=== PATIENT | female | born 1945 | race Caucasian/White ===

== ENCOUNTER 2019-10-30 15:44 | Emergency (ER) | payer MEDICARE, BC, SELFPAY ==
[2019-10-30] VITALS (7 sets, daily range): BP systolic 148–184; BP diastolic 58–87; PULSE 67–74; RESP 16–18; TEMP 36.7; O2SAT 96–98; BMI 30.1
--- NOTE | 2019-10-30 16:07 | ED_ITS ---
HPI - General Adult General: Chief complaint: General Medical Stated complaint: jaundice Time Seen by Provider: 10/30/19 15:58 Source: patient Mode of arrival: ambulatory Limitations: no limitations History of Present Illness: HPI narrative: 74-year-old female who states she went and saw her daughter who noted that she was quite jaundiced. Patient had labs drawn and does have a bilirubin of 12. Liver enzymes are in the 300s. She has had no abdominal pain denies any fever. She did not notice anything was wrong until someone noticed her jaundice. She is quite jaundiced here. She denies any fever or any other complaints. She has had no vomiting or diarrhea. No known sick contacts. Associated symptoms: Deny chest pain, dyspnea, headache(s), nausea or vomiting Review of Systems Const: Denies: fever, chills, body aches or change in appetite Eyes: Denies: blurry vision or eye discomfort ENMT: Denies: throat pain or dental pain Card: Denies: chest pain Resp: Denies: shortness of breath GI: Denies: abdominal pain, nausea, vomiting or diarrhea : Denies: painful urination Musc: Denies: neck pain or back pain Skin/Breast: Reports: yellow skin Neuro: Denies: headache Psych: Denies: depression Александр/Lymph: Denies: easy bruising All/Imm: Denies: hives PFS ED PFSH: Social History (System 10/10/19 @ 14:36 by Magi Hartley) Smoking and tobacco status: never smoked Physical Exam Const: COMMON NORMALS: no apparent distress, oriented x3 and healthy appearing HENMT: COMMON NORMALS: normocephalic and head/scalp atraumatic HEAD & SCALP: normocephalic and atraumatic Eye: COMMON NORMALS: PERRL and EOMs intact bilaterally PUPIL: Yes PERRL Neck/C-Spine: COMMON NORMALS: full ROM and supple Chest: COMMONS NORMALS: inspection of chest normal and palpation of chest normal Resp: COMMON NORMALS: normal respiratory effort, no retractions, no use of accessory muscles and clear to auscultation bilaterally AUSCULTATION: clear to auscultation bilaterally Cardio: COMMON NORMALS: regular rate, regular rhythm and no murmurs RATE: regular rate RHYTHM: regular rhythm GI: COMMON NORMALS: normal to inspection, nondistended, normoactive bowel sounds, soft to palpation, non-tender and no masses PALPATION: Yes soft Extremity: COMMON NORMALS: normal to inspection and full ROM Neuro: COMMON NORMALS: oriented x3, moves all extremities and no focal motor deficits Psych: COMMON NORMALS: mental status grossly normal, thought process normal and cooperative THOUGHT PROCESS: normal thought process Skin: COMMON NORMALS: no rashes or lesions noted and no wounds GENERAL SKIN EXAM: no rashes or lesions noted and jaundice Course Vital Signs: Vital signs: Vital Signs Temperature 98.0 F 10/30/19 16:02 Pulse Rate 72 10/30/19 17:16 Respiratory Rate 16 10/30/19 17:16 Blood Pressure 169/78 10/30/19 17:16 Pulse Oximetry 98 10/30/19 17:16 MDM - General Adult MDM Narrative: Medical decision making narrative: 74-year-old female presented here with jaundice and does have hyperbilirubinemia. Patient has a large liver mass likely compressing her bile duct. I spoke to physician at [facility] and will transfer there for higher level of care. Patient will need GI specialty which we do not have here. Patient likely needs a stent to open up her bile duct. Patient has been stable while here. Lab Data: Labs: Lab Results 10/30/19 10/30/19 Range/Units 16:10 16:10 WBC 9.5 (4.0-10.0) 10^3/ uL RBC 4.40 (4.1-5.3) 10^6/u L Hgb 13.8 (11.5-15.3) g/dL Hct 41.1 (37.0-47.0) % MCV 93.4 (81-99) fL MCH 31.4 (28.0-34.0) pg MCHC 33.6 (30.0-36.0) g/dL RDW 18.8 H (12.1-15.1) % Plt Count 168 (130-400) 10^3/c mm MPV 12.2 H (7.4-10.4) fL Neut % (Auto) 68.1 % Lymph % (Auto) 19.6 % [place] % (Auto) 9.5 % Eos % (Auto) 1.7 % Baso % (Auto) 0.8 % Neut # (Auto) 6.5 (1.8-7.7) 10^3/u L Lymph # (Auto) 1.9 (0.8-4.8) 10^3/u L [place] # (Auto) 0.9 (0.2-0.9) 10^3/u L Eos # (Auto) 0.2 (0.0-0.8) 10^3/u L Baso # (Auto) 0.1 (0.0-0.1) 10^3/u L Nucleated RBC % (a uto) 0 % Nucleated RBCs # 0.0 /100WBC Sodium 132 L (136-145) mmol/L Potassium 4.5 (3.5-5.1) mmol/L Chloride 95 L (98-107) mmol/L Carbon Dioxide 26 (22-29) mmol/L Anion Gap 15.5 (5-19) BUN 19 (8-23) mg/dL Creatinine 0.6 (0.5-0.9) mg/dL Glucose 106 (65-115) mg/dL Calculated Osmolal ity 271 L (285-295) mOsm/k g Calcium 9.3 (8.5-10.5) mg/dL Total Bilirubin 12.2 H* (0.15-1.2) mg/dL AST 305 H (0-32) U/L ALT 209 H (0-33) U/L Alkaline Phosphata se 794 H (35-105) IU/L Total Protein 7.8 (6.6-8.7) g/dL Albumin 3.6 (3.5-5.2) g/dL Globulin 4.2 (1.3-4.6) g/dL Lipase 27 (13-60) U/L Imaging Data^: CT Abd/Pel: Radiologist's impression: [place] [address] CT Scan Report Signed Patient: Lexie Sylvester Unit #: [id number] : 1945 Age/Sex: 74 / F ADM Date: 10/30/19 Loc: ER Room/Bed: Attending Dr: Ordering Provider/Ordering MD: Brenda Webb MD Date of Service: 10/30/19 Procedure(s): CT abdomen pelvis w con* [id number] Accession Number(s): [id number] Report Number: [id number] PROCEDURE INFORMATION: Exam: CT Abdomen And Pelvis With Contrast Exam date and time: 10/30/2019 4:37 PM Age: 74 years old Clinical indication: Other: Jaundiced; Prior surgery; Surgery date: 6+ months; Surgery type: Hyst, appy ovaries; Additional info: Jaundice TECHNIQUE: Imaging protocol: Computed tomography of the abdomen and pelvis with intravenous contrast. Radiation optimization: All CT scans at this facility use at least one of these dose optimization techniques: automated exposure control; mA and/or kV adjustment per patient size (includes targeted exams where dose is matched to clinical indication); or iterative reconstruction. Contrast material: OMNI 300; Contrast volume: 95 ml; Contrast route: IV; COMPARISON: No relevant prior studies available. RADIATION DOSE METRICS: Total DLP: 1809.77 mGy-cm FINDINGS: Liver: 5.8 cm ill-defined inhomogenous hypodense mass in the left liver lobe. Gallbladder and bile ducts: Mild intrahepatic ductal dilatation, left greater than right. Gallbladder wall thickening measuring up to 7 mm. The extrahepatic bile ducts are normal in diameter. Pancreas: 1.1 cm oval low-density lesion in the pancreatic tail, likely cystic. Spleen: Normal. No splenomegaly. Adrenals: Normal. No mass. Kidneys and ureters: Subcentimeter hypodensity in the right kidney is too small to characterize. This is most likely a cyst. No follow-up recommended. 1 mm nonobstructing left renal calyceal calculus. Stomach and bowel: Mild diverticulosis of the distal colon. Short segment of fluid-filled small bowel in the lower abdomen measures up to 3.0 cm. The remainder of the small bowel is normal in caliber. The stomach is unremarkable. Appendix: No evidence of appendicitis. Intraperitoneal space: Unremarkable. No free air. No significant fluid collection. Vasculature: Unremarkable. No abdominal aortic aneurysm. Lymph nodes: Unremarkable. No enlarged lymph nodes. Bladder: Unremarkable as visualized. Reproductive: The uterus and ovaries are absent. Bones/joints: Mild scoliosis and degenerative changes. No compression fracture. Soft tissues: Unremarkable. CT/CT abdomen pelvis w con* [id number] IMPRESSION: 1. 5.8 cm ill-defined inhomogenous mass in the left liver lobe. This could represent hepatocellular carcinoma, cholangiocarcinoma, or metastatic disease. In a low-risk patient, recommend further evaluation with liver MRI. In a high-risk patient, recommend further evaluation with liver MRI or biopsy. If biopsy is pursued, core biopsy is preferred over fine-needle aspiration. 2. Intrahepatic ductal dilatation, left greater than right, without extrahepatic ductal dilatation. This may represent obstruction due to the left liver lobe mass, versus an occult bile duct neoplasm. 3. Thickening of the gallbladder wall is suspicious for cholecystitis. Neoplastic involvement is not excluded. 4. 1.1 cm probable cystic lesion in the pancreatic tail. This could represent a pseudocyst or cystic neoplasm such as intraductal papillary mucinous neoplasm. 5. Focal ileus or enteritis in the distal small bowel. Discharge Plan Discharge Patient Disposition: Xfer Other Clinical Impression: Liver mass, Hyperbilirubinemia Condition: Stable Referrals: Phil Cisneros MD [Primary Care Provider] - Coding Level of Care Code ED Bicycle Assembler for Chg Fwd Exam Comprehensive
[2019-10-30 16:28] LABS: Basophils # 0.1 10^3/uL (0.0-0.1); Basophils % 0.8 %; Eosinophils # 0.2 10^3/uL (0.0-0.8); Eosinophils % 1.7 %; Hematocrit 41.1 % (37.0-47.0); Hemoglobin 13.8 g/dL (11.5-15.3); Lymphocytes # 1.9 10^3/uL (0.8-4.8); Lymphocytes % 19.6 %; Mean Corpuscular HGB Conc 33.6 g/dL (30.0-36.0); Mean Corpuscular Hemoglobin 31.4 pg (28.0-34.0); Mean Corpuscular Volume 93.4 fL (81-99); Mean Platelet Volume 12.2 fL (7.4-10.4); Monocytes # 0.9 10^3/uL (0.2-0.9); Monocytes % 9.5 %; Neutrophils # 6.5 10^3/uL (1.8-7.7); Neutrophils % 68.1 %; Nucleated Red Blood Cells % 0 %; Platelet Count 168 10^3/cmm (130-400); Red Cell Distribution Width 18.8 % (12.1-15.1); White Blood Count 9.5 10^3/uL (4.0-10.0)
[2019-10-30 16:32] LABS: Alanine Aminotransferase 209 U/L (0-33); Albumin Level 3.6 g/dL (3.5-5.2); Alkaline Phosphatase 794 IU/L (35-105); Anion Gap 15.5 (5-19); Aspartate Amino Transferase 305 U/L (0-32); Blood Urea Nitrogen 19 mg/dL (8-23); Calcium 9.3 mg/dL (8.5-10.5); Carbon Dioxide 26 mmol/L (22-29); Chloride 95 mmol/L (98-107); Globulin 4.2 g/dL (1.3-4.6); Glucose 106 mg/dL (65-115); Lipase 27 U/L (13-60); Osmolality Calculated 271 mOsm/kg (285-295); Potassium 4.5 mmol/L (3.5-5.1); Sodium 132 mmol/L (136-145); Total Protein 7.8 g/dL (6.6-8.7)
[2019-10-30] MEDS: iohexol 300 mg/mL 100 mL Btl IV (17:06)
[2019-10-30 17:30] LABS: Total Bilirubin 12.2 mg/dL (0.15-1.2)
--- NOTE | 2019-10-30 19:43 | PC.NURSE ---
Pt requesting size of mass on liver. Pt and daughter (via phone) informed size of mass is 5.8cm
== END 2019-10-30 20:08 | disposition other institution (70) ==
PROVIDERS: Emergency Provider Emergency Medicine; PCP Family Medicine
DX: R16.0 Hepatomegaly, not elsewhere classified (principal); E80.6 Other disorders of bilirubin metabolism
CPT/HCPCS: 12345; 36415; 74177; 80053; 83690; 85025; 99282; 99285; Q9967

== ENCOUNTER 2020-01-17 08:00 | Outpatient (RCR) | payer MEDICARE, BC, SELFPAY ==
[2020-01-10 10:35] VITALS: BP 137/64; PULSE 54; RESP 18; TEMP 37; O2SAT 97; BMI 29.4
[2020-01-17 08:58] VITALS: BP 183/81; PULSE 59; RESP 18; TEMP 36.4; O2SAT 98
== END 2020-01-24 23:59 | disposition home or self-care (01) ==
LOC: OPS 08:00
PROVIDERS: PCP Family Medicine; Visit Provider Internal Medicine Medical Oncology
DX: D70.1 Agranulocytosis secondary to cancer chemotherapy (principal)
CPT/HCPCS: 96372; J1442

== ENCOUNTER 2020-02-21 08:28 | Outpatient (RCR) | payer MEDICARE, BC, SELFPAY ==
[2020-01-31 08:51] VITALS: BP 169/62; PULSE 48; RESP 20; TEMP 36.5; O2SAT 99
[2020-02-07 08:48] VITALS: BP 172/57; PULSE 55; RESP 18; TEMP 36.1; O2SAT 97
[2020-02-21 10:01] VITALS: BP 178/86; PULSE 58; RESP 18; TEMP 36.2; O2SAT 98
== END 2020-02-24 23:59 | disposition home or self-care (01) ==
LOC: OPS 08:28
PROVIDERS: PCP Family Medicine; Visit Provider Internal Medicine Medical Oncology
DX: C22.1 Intrahepatic bile duct carcinoma (principal)
CPT/HCPCS: 96372; J1442

== ENCOUNTER → 2020-06-24 15:13 | Outpatient (BNVA) | payer MEDICARE, BC, SELFPAY | PROVIDERS: PCP Family Medicine; Visit Provider Orthopaedic Surgery | DX: S42.101A Fracture of unspecified part of scapula, right shoulder, initial encounter for closed fracture (principal); W18.09XA Striking against other object with subsequent fall, initial encounter | CPT/HCPCS: 73030 ==

== ENCOUNTER 2020-09-25 08:36 | Outpatient (CLI) | payer MEDICARE, BC, SELFPAY ==
[2020-09-25] MEDS: sodium chloride 0.9% 500 ML 999 ML IV (10:50)
[2020-09-25 11:37] LABS: Basophils % 0.4 %; Eosinophils # 0.1 10^3/uL (0.0-0.8); Eosinophils % 1.8 %; Hematocrit 28.5 % (37.0-47.0); Hemoglobin 9.7 g/dL (11.5-15.3); Lymphocytes # 1.1 10^3/uL (0.8-4.8); Mean Platelet Volume 11.7 fL (7.4-10.4); Monocytes # 0.6 10^3/uL (0.2-0.9); Monocytes % 11.2 %; Neutrophils # 3.59 10^3/uL (1.8-7.7); Neutrophils % 65.9 %; Nucleated Red Blood Cells % 0 %; Platelet Count 58 10^3/cmm (130-400); Red Blood Count 2.85 10^6/uL (4.1-5.3); White Blood Count 5.5 10^3/uL (4.0-10.0)
[2020-09-25 12:01] LABS: Alanine Aminotransferase 40 U/L (0-33); Albumin Level 2.3 g/dL (3.5-5.2); Alkaline Phosphatase 325 IU/L (35-105); Anion Gap 13.4 (5-19); Aspartate Amino Transferase 96 U/L (0-32); Blood Urea Nitrogen 17 mg/dL (8-23); Calcium 8.2 mg/dL (8.5-10.5); Carbon Dioxide 24 mmol/L (22-29); Chloride 101 mmol/L (98-107); Globulin 3.4 g/dL (1.3-4.6); Glucose 123 mg/dL (65-115); Magnesium 1.5 mg/dL (1.7-2.3); Osmolality Calculated 281 mOsm/kg (285-295); Potassium 4.4 mmol/L (3.5-5.1); Sodium 134 mmol/L (136-145); Total Bilirubin 0.9 mg/dL (0.15-1.2); Total Protein 5.7 g/dL (6.6-8.7)
[2020-09-25 12:43] LABS: Iron 47 ug/dL (37-145); Total Iron Binding Capacity 134 mcg/dl; Unsaturated Iron Binding 87 ug/dL (112-347)
[2020-09-25 12:58] LABS: Vitamin B12 1231 pg/mL (232-1245)
--- NOTE | 2020-09-25 15:02 | ONC CON_ITS ---
Dr. Hall New Patient Note Patient: Lexie Sylvester Unit #: [id number]: 1945 Dicatated By: Gabe Hall M.D.Date of Visit: Sep 25, 2020 Onc MED New Patient/Consult Referring Physician: Jose Luis Lopez Chief Complaint: Cholangiocarcinoma. 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 She has previously been treated for endometrial cancer and for thyroid cancer. In October 2019 she had presented to the emergency room with jaundice. Her initial CT scan showed an ill-defined inhomogeneous hypodense mass in the left lobe of the liver measuring 5.8 cm. There is mild intrahepatic ductal dilatation. Her ERCP showed no definite filling defects in the bile ducts. Abdominal MRI showed infiltrative mass in the left lobe of the liver measuring 8.1 x 5.5 cm. It was noted to be contiguous with the anterior gallbladder wall. There was marked hepatomegaly with nodular hepatic contour suggesting underlying cirrhosis. There was markedly dilated left sided intrahepatic bile ducts measuring up to 1.1 cm in diameter. Needle biopsy of the liver on 11/20/2019 showed cirrhosis with marked bile ductular proliferation and neutrophilic inflammation. There was no malignancy identified. She had further evaluation at [facility] where she underwent diagnostic laparoscopy with multiple liver biopsies on 12/03/2019. She was noted to have a mass involving segment 4 of the liver in a background of liver cirrhosis. Pathology on the liver mass showed poorly differentiated adenocarcinoma. Pathology on biopsies from the right lobe of the liver showed bridging fibrosis. Overall, the findings were felt to be consistent with cholangiocarcinoma with underlying liver cirrhosis. On 12/09/2019 she had medical oncology consultation with Dr. Jose Luis Lopez, following which she began a course of treatment with cisplatin/gemcitabine. A repeat MRI on 02/17/2020, following completion of 3 cycles of chemotherapy, showed stable disease. She then sought treatment at [facility] in [place], [place]. She subsequently began second line chemotherapy with a modified FOLFOX regimen. During her further follow-up she did require some treatment delays and dose reductions due to cytopenias, but she did show some response to the FOLFOX chemotherapy. Her most recent FOLFOX cycle began on 07/07/2020. She then returned to [facility] where she underwent radiation concurrently with capecitabine for chemosensitization. She completed radiation on 08/26/2020. Total dose was 6000 cGy to the abdomen (liver) administered in 15 fractions and 6000 cGy to an upper pelvic lymph node, also administered in 15 fractions. She returned to see Dr. Lopez on 09/14/2020. At that point she was having fever, cough, and shortness of breath. Her CT pulmonary angiogram showed no evidence of pulmonary thromboembolism. There were scattered patchy infiltrates primarily involving the upper lobes with a peripheral distribution. Similar changes were noted to a lesser extent within the lung bases, right greater than left. There was no associated adenopathy. The findings appeared most compatible with underlying pneumonia. She began on empiric antibiotic coverage with Levaquin. She is seen here now so that she can receive some follow-up care locally. She complains that her energy is still very low and she does have very limited activity. She is able to walk to the bathroom with assistance. Her ECOG score is 3. Appetite is not very good. She has continued to have fever, though it has been coming down gradually on the Levaquin. Her temperature is typically normal when she first gets up in the morning, but she has fever later in the day on a daily basis. The highest recently has been 100.3 to 100.4 degrees. She had recently fallen at home. She hurt her toes, but she did not have any other injury from it. She says her cough is getting better. She still has some shortness of breath. She does not complain of chest pain. She sometimes has nausea. She has some pain in the mid abdominal area. Bowel and bladder function have been okay. She has some joint pain. During the course of her chemotherapy treatment she had also sustained a right arm fracture. It has been managed conservatively. She has had some headaches and she tends to feel lightheaded when she stands up. She is having significant neuropathy in her hands and in her legs and feet. She also has developed swelling in her lower legs and feet. Past Medical History: She has a history of thyroid cancer and a history of uterine cancer. She also has valvular heart disease. Past Surgical History: She underwent diagnostic laparoscopy at [facility] on 12/03/2019. Her other surgical/procedural history includes cataract excision, hysterectomy/bilateral salpingo-oophorectomy, lumpectomy, rotator cuff repair, tonsillectomy, bioprosthetic aortic valve replacement in 2013, and total thyroidectomy followed by iodine-131 ablation in 2010. Medications: [place] Thyroid 1 (120 mg) Tablet Oral daily, Benzonatate 1 (100 mg) Capsule Oral t.i.d., Ibuprofen 1 (200 mg) Capsule Oral PRN, levoFLOXacin 1 (750 mg) Tablet Oral daily, Omeprazole 1 (40 mg) Capsule Delayed Release Oral daily Allergies: oxyCODONE HCl and traMADol HCl. Social History: Ms. Sylvester is and she is retired. She is a non-smoker. She does not drink alcohol. Family History: Father of lung cancer at age 62. Mother at age 50. A brother has coronary artery disease. Review Of Symptoms: Constitutional - She does not feel good generall. Her energy is very poor. She is able to get up and walk short distances with assistance. She is otherwise sedentary. Her appetite is poor and her weight is down. She has been running fever on a daily basis, as high as 102.7, but since starting antibiotics it has been improving. She also is still having episodes of chills and sweating. ECOG score is 3, Eyes - No change in vision, ENMT - No hearing loss or tinnitus. No sinus congestion/drainage. No mouth sores. No sore throat or difficulty swallowing, Hematologic/Lymphatic - She bruises easily, Respiratory - She has shortness of breath with activity. She has a cough. No pleuritic pain or hemoptysis, Cardiovascular - No angina pain. No palpitations. She has developed swelling in both legs, Gastrointestinal - She has some nausea. No vomiting. Her heartburn is adequately managed with omeprazole. No diarrhea or constipation. No blood in the stool or black stools. She has some pain in her right upper quadrant area, Genitourinary (F) - No dysuria or hematuria. No urinary frequency. No urgency or incontinence, Musculoskeletal - She has some joint pain, Integumentary - No skin eruption, Neurologic - She has been having headaches. She has dizziness upon standing. She reports pretty significant neuropathy in her hands and in her legs and feet, Psychiatric - No anxiety or depression. She does not sleep well. Vital Signs: Performed on Sep 25, 2020 09:27: 3, 1.52 (LOW), 2.65 sq.m, 180 in, 94 % (LOW), 73 /min, 19 /min, 143/76 mm(hg) (HIGH), 98.3 F (LOW), and 70 lbs (HIGH). Physical Examination: Constitutional - She appears generally weak but not acutely ill, Eyes - Sclerae nonicteric. Conjunctivae clear, ENMT - No lesions noted in the oral cavity, Neck - No mass or thyromegaly, Hematologic/Lymphatic - No cervical, clavicular, or axillary adenopathy, Respiratory - Lungs sound clear. She has pretty good air movement bilaterally, Cardiovascular - Heart rhythm is regular. There is no murmur, gallop, or rub noted, Abdomen - Soft and non-tender. Liver and spleen are not enlarged. There is no abdominal mass or ascites noted and there is no inguinal adenopathy, Back/Spine - No spine or CVA tenderness noted, Extremities - There is 2+ lower extremity edema. Pedal pulses are palpable bilaterally. There are scattered purpuric lesions on the arms and legs, Integumentary - No rashes. No suspicious skin lesions noted, Neurologic - She does not appear to have any focal neurologic deficit. Problem List: 1. Intrahepatic cholangiocarcinoma, stage IV, initially diagnosed in November 2019. 2. She had recently completed chemoradiation to the abdomen and to an upper pelvic lymph node. 3. A CT pulmonary angiogram on 09/14/2020 showed evidence of bilateral pneumonia, for which she is on antibiotic therapy with Levaquin. 4. There was evidence of underlying liver cirrhosis by MRI and by liver biopsy. 5. She underwent total thyroidectomy and radioactive iodine ablation for thyroid cancer in 2010. She has subsequent hypothyroidism. 6. She had previous hysterectomy/bilateral salpingo-oophorectomy for endometrial cancer. 7. She has history of valvular heart disease for which she underwent bioprosthetic aortic valve replacement in 2013. Problems Addressed with this Encounter and Plan: 1. Patient with intrahepatic cholangiocarcinoma, stage IV, initially diagnosed in November 2019. She had treatment with cisplatin/gemcitabine chemotherapy from November through January 2020 with a follow-up MRI showing stable disease. On 02/25/2020 she began second line chemotherapy with modified FOLFOX. During subsequent followup she required dose reductions and treatment delays for cytopenias, but she did show evidence of response. Her most recent chemotherapy cycle began on 07/07/2020. She underwent radiation concurrently with capecitabine chemotherapy at [facility] from 08/03/2020 through 08/26/2020, total dose 6000 cGy to the abdomen (liver) administered in 15 fractions and 6000 cGy to an upper pelvic lymph node, also administered in 15 fractions. During subsequent follow-up she has had persistent fever and she has very marginal performance status. As yet she has had no further treatment. 2. Her CT pulmonary angiogram on 09/14/2020 showed evidence of bilateral pneumonia. She has been on empiric antibiotic coverage with Levaquin. She does appear to be showing some symptomatic improvement, but she continues to have fever on a daily basis. As such, I will recheck her CBC and comprehensive metabolic profile today, and I also will obtain blood cultures. I am also trying to arrange for pulmonary consultation with Dr. Bermeo. Signed By: Gabe Hall M.D. <<Signature on File>>
== END 2020-09-25 08:37 | disposition home or self-care (01) ==
LOC: ONCMED 08:41
PROVIDERS: PCP Family Medicine; Visit Provider Internal Medicine Medical Oncology
DX: C22.1 Intrahepatic bile duct carcinoma (principal); E89.0 Postprocedural hypothyroidism; R50.9 Fever, unspecified; J18.9 Pneumonia, unspecified organism; Z92.21 Personal history of antineoplastic chemotherapy; Z92.3 Personal history of irradiation; Z79.899 Other long term (current) drug therapy
CPT/HCPCS: 80053; 82607; 83540; 83550; 83735; 85025; 87040; 96360; 99205; J7040

== ENCOUNTER 2020-10-05 08:50 | Outpatient (CLI) | payer MEDICARE, BC, SELFPAY ==
--- NOTE | 2020-10-05 08:59 | XRR_ITS ---
PROCEDURE INFORMATION: Exam: XR Chest Exam date and time: 10/05/2020 9:01 AM Age: 75 years old Clinical indication: Condition or disease; Lung condition and disease; Pneumonia TECHNIQUE: Imaging protocol: XR of the chest. Views: Frontal and lateral upright, 2 views. COMPARISON: 1. CR Chest 2 views* [id number] 09/16/2020 4:20 PM 2. CTA Chest-Pulmonary Emb [id number] 09/14/2020 1:19:00 PM FINDINGS: Tubes, catheters and devices: The right internal jugular venous portacatheter tip is in the cavoatrial junction. The patient is status post median sternotomy with sternal cerclage wires. Lungs: The lungs are clear bilaterally. The pulmonary vasculature is normal. Pleural spaces: No pleural effusion. No pneumothorax. Heart/Mediastinum: The heart is normal in size and contour. Mediastinum: Stable. Vasculature: Mild aortic arch atherosclerotic calcification without ectasia. Aortic valve stent. Bones/joints: Mild rightward thoracolumbar spinal curvature. Diffuse osteopenia. XR/XR chest 2V* [id number] IMPRESSION: No acute cardiopulmonary abnormality identified.
== END 2020-10-05 08:51 | disposition home or self-care (01) ==
PROVIDERS: PCP Family Medicine; Visit Provider Internal Medicine Critical Care Medicine
DX: J18.9 Pneumonia, unspecified organism (principal)
CPT/HCPCS: 71046

== ENCOUNTER 2020-10-31 13:06 | Emergency (ER) | payer MEDICARE, BC, SELFPAY ==
[2020-10-31] VITALS (10 sets, daily range): BP systolic 111–130; BP diastolic 57–68; PULSE 94–111; RESP 12–20; TEMP 36.5–36.9; O2SAT 96–100; BMI 26.6
--- NOTE | 2020-10-31 13:28 | XRR_ITS ---
PROCEDURE INFORMATION: Exam: XR Chest Exam date and time: 10/31/2020 1:32 PM Age: 75 years old Clinical indication: Shortness of breath; Additional info: AMS TECHNIQUE: Imaging protocol: XR of the chest. Views: 1 view. COMPARISON: CR XR chest 2V* [id number] 10/05/2020 9:07 AM FINDINGS: Tubes, catheters and devices: There is a right IJ catheter whose tip is in the right atrium. Lungs: Unremarkable. No consolidation. Pleural spaces: Unremarkable. No pleural effusion. No pneumothorax. Heart/Mediastinum: Unremarkable. No cardiomegaly. Bones/joints: Unremarkable. XR/XR chest 1V portable [id number] IMPRESSION: There are no acute concerning abnormalities.
--- NOTE | 2020-10-31 13:28 | CTR_ITS ---
PROCEDURE INFORMATION: Exam: CT Head Without Contrast Exam date and time: 10/31/2020 3:04 PM Age: 75 years old Clinical indication: Altered mental status/memory loss; Confusion or disorientation; Patient HX: AMS - confusion - lethargy; Additional info: AMS on eliquis TECHNIQUE: Imaging protocol: Computed tomography of the head without contrast. Radiation optimization: All CT scans at this facility use at least one of these dose optimization techniques: automated exposure control; mA and/or kV adjustment per patient size (includes targeted exams where dose is matched to clinical indication); or iterative reconstruction. COMPARISON: CT head wo con* [id number] 08/25/2014 12:49 AM RADIATION DOSE METRICS: Total DLP (mGy-cm): 888.72 FINDINGS: Brain: Moderate white matter disease and volume loss are identified. There is no acute infarct or edema. No hemorrhage. Cerebral ventricles: No ventriculomegaly. Bones/joints: Unremarkable. No acute fracture. Paranasal sinuses: Visualized sinuses are unremarkable. No fluid levels. Mastoid air cells: Visualized mastoid air cells are well aerated. Soft tissues: Unremarkable. Other findings: This study is compromised by patient motion. CT/CT head wo con* [id number] IMPRESSION: There are no acute concerning abnormalities. Radiation Dose CTDIVOL = (mGy): DLP = 888.72 (mGy-cm)
--- NOTE | 2020-10-31 13:30 | ECG_ITS ---
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 Measurements Intervals [place] Rate: 104 P: 49 VA: 128 QRS: -44 QRSD: 116 T: 83 QT: 375 QTc: 494 Interpretive Statements SINUS TACHYCARDIA WITH OCCASIONAL VENTRICULAR PREMATURE COMPLEXES LEFT AXIS DEVIATION [QRS AXIS < -30] SEPTAL MYOCARDIAL INFARCTION , PROBABLY OLD [40+ ms Q WAVE IN V1/V2] Compared to ECG 10/31/2020 14:49:34 Ventricular premature complex(es) now present Sinus rhythm no longer present Short VA interval no longer present Myocardial infarct finding still present Electronically Signed On 11-01-2020 11:43:42 CDT by Sade Barraza M.D. [id number]
--- NOTE | 2020-10-31 13:34 | ED_ITS ---
HPI - Altered Mental Status General: Chief Complaint: Altered Mental Status Stated Complaint: AMS Time Seen by Provider: 10/31/20 13:23 Source: patient and family Mode of arrival: wheelchair Limitations: altered mental status History of Present Illness: HPI narrative: Lexie is a nice 75-year-old female who comes in with altered mental status. Her daughter is with her provides much of the history. Apparently the patient was in her normal state of health yesterday but today they have had a difficult time arousing her. Patient is confused. She has known liver cancer but has not received any chemo or radiation over a month. She had a biliary stent placed previously but this has been removed. She had no skin discolorations or jaundice that the family is aware of. Patient denies any headache, fever, neck pain, chest pain, shortness of breath but does complain of nauseousness and some vague diffuse abdominal pain. She denies any urinary symptoms and she did have a normal stool this morning. There is been no recent medication changes or new medications added. The patient is confused to place and time and has a GCS of 13. 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 Patient is denying any chest pain or shortness of breath at this time. Review of Systems General: Reports: ROS unobtainable due to mental status (ROS as best can be obtained as noted in HPI) PFSH ED PFSH: Medical History Cholangiocarcinoma Endometrial cancer Hypothyroid Liver cirrhosis Pneumonia Rotator cuff arthropathy Thyroid cancer Uterine cancer Valvular heart disease Surgical History Bioprosthetic aortic valve replacement during current hospitalization H/O laparoscopy H/O lumpectomy History of hysterectomy History of liver biopsy History of salpingo-oophorectomy History of thyroidectomy, total Hx of cataract surgery Hx of tonsillectomy Family History Father Cancer Lung Cancer Brother CAD (coronary artery disease) Social History Smoking and tobacco status: never smoked Second hand smoke exposure: No Smoking risk assessment/counseling performed?: No Alcohol intake: never Counseling given: No Counseling given: No Lives independently: Yes Household members: spouse Marital status: Current gender identity: Female Physical Exam Const: COMMON NORMALS: no acute distress, no limitations and alert GENERAL APPEARANCE: cooperative and anxious HENMT: COMMON NORMALS: normocephalic, atraumatic, external ears normal, EAC's normal and Normal external nose present HEAD & SCALP: normal to inspection, normocephalic and atraumatic FACE & SINUS: normal facial exam and face symmetric NOSE: Normal external nose present and Normal nares present EXTERNAL EAR: Yes external ears normal EXTERNAL AUDITORY CANAL: EAC's normal MOUTH: Normal oral and palatal mucosa present, lip normal and tongue normal Eye: COMMON NORMALS: Equal, round and reactive pupils present and conjunctivae normal GENERAL EYE: appearance normal, both eyes and all related structures ALIGNMENT: Yes alignment normal PERIORBITAL: periorbital findings normal EYELID: eyelids normal CONJUNCTIVA: Yes conjunctivae normal SCLERA: sclerae normal PUPIL: Yes Equal, round and reactive pupils present Neck/C-Spine: COMMON NORMALS: full ROM, no lymphadenopathy, supple, no meningeal signs and no JVD GENERAL: Yes normal visual inspection and Yes trachea midline Chest: COMMONS NORMALS: normal inspection of the chest and normal palpation of entire chest wall Resp: COMMON NORMALS: normal respiratory effort, No retractions, No use of accessory muscles and clear to auscultation bilaterally EFFORT & INSPECTION: Yes able to speak in complete sentences and Yes symmetric chest movement AUSCULTATION: clear to auscultation bilaterally, no crackles, no rales, no rhonchi and no wheezes Cardio: COMMON NORMALS: no JVD, regular rate, regular rhythm, S1 normal heart sound present and S2 normal heart sound present RATE: regular rate RHYTHM: regular rhythm HEART SOUNDS: S1 normal heart sound present, S2 normal heart sound present, no click, no gallops, no murmurs and no rubs GI: COMMON NORMALS: Soft to palpation and No hepatosplenomegaly present PALPATION: Yes Soft to palpation, Yes Tenderness to palpation present (GI) (Mild diffusely), No Guarding due to palpation present (GI), No Rigid due to palpation, Yes No hepatosplenomegaly present, No Hernia present, No Palpable mass present and No Pulsatile mass present RECTAL EXAM: heme positive stool (Melanotic stool) : COMMON NORMALS: Yes no CVA tenderness BLADDER/KIDNEY EXAM: Yes no CVA tenderness EXTERNAL FEMALE EXAM: No Hernia present Back/Pelvis: COMMON NORMALS: no CVA tenderness, thoracic and lumbar spine normal to inspection, no thoracic nor lumbar tenderness and thoraco-lumbar ROM normal Extremity: COMMON NORMALS: normal to inspection, full ROM, capillary refill normal, no joint enlargement, no clubbing, cyanosis or edema and no calf te nderness Neuro: COMMON NORMALS: CN's II-XII intact bilaterally, moves all extremities, no focal motor deficits and no sensory deficits noted SENSORIUM/ORIENTATION: Yes alert MENINGEAL SIGNS: Yes no meningeal signs SPEECH: speech normal Psych: COMMON NORMALS: mental status grossly normal, Normal thought process present, cooperative, normal affect, speech normal and activity/motor behavior normal SPEECH: Yes normal speech THOUGHT PROCESS: Normal thought process present Skin: COMMON NORMALS: no rashes or lesions noted, turgor normal, no jaundice, no petechiae and no mottling GENERAL SKIN EXAM: no rashes or lesions noted and turgor normal Course ED course: 1453 -Case reviewed with Dr. Don, he would like to wait to give Andexxa at this time until we can further evaluate the patient. Vital Signs: Vital signs: Vital Signs Temperature 98.1 F 10/31/20 16:57 Pulse Rate 102 H 10/31/20 16:57 Respiratory Rate 20 H 10/31/20 16:57 Blood Pressure 130/67 10/31/20 16:57 Pulse Oximetry 99 10/31/20 16:57 MDM - Altered Mental Status MDM Narrative: Medical decision making narrative: 1649 -patient had been given Ativan previously for some agitation and she continues to be agitated. She is redirectable. The frequency though of which she is becoming more aggressive is becoming more difficult to handle. Family is requesting something more for sedation. I will go and give her a dose of Haldol here. Still awaiting CT scan of the chest/abdomen/pelvis at this time. 1758 -the case was reviewed with Dr. Fajardo, he states because of the patient's thrombocytopenia and possibility of having esophageal varices he recommends transfer. I have venous with the family and they are in agreement. I will call [facility] per their request. 1823 -Case reviewed with Dr. Molina [facility]. He will accept the patient in transfer. Lab Data: Labs: Lab Results 10/31/20 10/31/20 10/31/20 Range/Units 14:00 14:00 14:00 WBC (4.0-10.0) 10^3/ uL RBC (4.1-5.3) 10^6/u L Hgb (11.5-15.3) g/dL Hct (37.0-47.0) % MCV (81-99) fL MCH (28.0-34.0) pg MCHC (30.0-36.0) g/dL RDW (12.1-15.1) % Plt Count (130-400) 10^3/c mm MPV (7.4-10.4) fL Neut % (Auto) % Lymph % (Auto) % [place] % (Auto) % Eos % (Auto) % Baso % (Auto) % Neut # (Auto) (1.8-7.7) 10^3/u L Lymph # (Auto) (0.8-4.8) 10^3/u L [place] # (Auto) (0.2-0.9) 10^3/u L Eos # (Auto) (0.0-0.8) 10^3/u L Baso # (Auto) (0.0-0.1) 10^3/u L Nucleated RBC % (a uto) % Nucleated RBCs # /100WBC PT (12.1-14.9) SECO NDS INR (0.8-1.2) APTT (23.9-36.7) SECO NDS Specimen Type Arterial Sample Site Radial, right ABG pH 7.50 H (7.35-7.45) ABG pCO2 32.3 L (35-45) mmHg ABG pO2 87.0 (80.0-100.0) mmH g ABG HCO3 25.1 (22-26) mmol/L ABG O2 Saturation 98.3 ABG Base Excess 1.8 (-2.0-2.0) mmol/ L Andrew Test Pos A-a O2 Gradient 2.7 L (5-10) mmHg Hematocrit 21.8 L (37-47) % Hgb O2 Saturation 95.5 (95-100) % Carboxyhemoglobin 1.8 (0.4-20.1) %THgb Methemoglobin 1.1 (0.4-1.5) % Total Hemoglobin 7.1 L (12-16) g/dL Sodium 142.0 137 (131-143) mmol/L Potassium 3.6 3.6 (3.5-5.0) mmol/L Glucose 194.0 H 192 H (70-115) mg/dL Ionized Calcium 1.2 (1.1-1.4) mmol/L O2 Delivery Device Room air FiO2 21.0 % Sewing Machine Operator Paper Bags ID glc Chloride 102 (98-107) mmol/L Carbon Dioxide 23 (22-29) mmol/L Anion Gap 15.7 (5-19) BUN 50 H (8-23) mg/dL Creatinine 1.0 H (0.5-0.9) mg/dL GFR Calculation Not Reportable Calculated Osmolal ity 305 H (285-295) mOsm/k g Lactic Acid (0.5-2.2) mmol/L Lactic Acid (Sepsi s) (0.5-2.2) mmol/L Calcium 8.1 L (8.5-10.5) mg/dL Magnesium 1.8 (1.7-2.3) mg/dL Total Bilirubin 0.7 (0.15-1.2) mg/dL AST 53 H (0-32) U/L ALT 25 (0-33) U/L Alkaline Phosphata se 156 H (35-105) IU/L Ammonia 154 H (11-51) umol/L Creatine Kinase 34 (26-192) U/L Troponin T Baselin e (0-10) ng/L Troponin T 120 Min coquille (0-10) ng/L Delta Troponin T (0-10) ABS# Total Protein 4.9 L (6.6-8.7) g/dL Albumin 4.6 (3.5-5.2) g/dL Globulin 2.4 (1.3-4.6) g/dL Lipase 32 (13-60) U/L TSH 15.40 H (0.27-4.20) uIU/ mL Urine Color (Yellow) Urine Appearance (CLEAR) Urine pH (5-7) Ur Specific Gravit y (1.005-1.030) Urine Protein (Negative) Urine Glucose (UA) (Normal) Urine Ketones (Negative) Urine Blood (Negative) Urine Nitrate (Negative) Urine Bilirubin (Negative) Urine Urobilinogen (Negative) mg/dL Ur Leukocyte Yolanda ase (Negative) Urine RBC (0-2) /hpf Urine WBC (0-5) /hpf Ur Squamous Epith Cells (0-5) /hpf Amorphous Sediment Urine Bacteria (NONE) /hpf Urine Opiates Scre en (Negative) ng/mL Ur Barbiturates Sc reen (Negative) ng/mL Ur Phencyclidine S crn (Negative) ng/mL Ur Amphetamines Sc reen (Negative) ng/mL U Benzodiazepines Scrn (Negative) ng/mL Urine Cocaine Scre en (Negative) ng/mL U Marijuana (THC) Screen (Negative) ng/mL Ethyl Alcohol < 10 (0-10) mg/dL Serum Ketones (Negative) SARS-CoV-2 Ag (Rap id) (Negative) Blood Type Rho(D) Type Antibody Screen Crossmatch 10/31/20 10/31/20 10/31/20 Range/Units 14:00 14:00 14:00 WBC 7.8 (4.0-10.0) 10^3/ uL RBC 1.76 L (4.1-5.3) 10^6/u L Hgb 6.0 L* (11.5-15.3) g/dL Hct 19.0 L* (37.0-47.0) % MCV 108.0 H (81-99) fL MCH 34.1 H (28.0-34.0) pg MCHC 31.6 (30.0-36.0) g/dL RDW 16.3 H (12.1-15.1) % Plt Count 89 L (130-400) 10^3/c mm MPV 11.3 H (7.4-10.4) fL Neut % (Auto) 74.9 % Lymph % (Auto) 13.4 % [place] % (Auto) 10.3 % Eos % (Auto) 0.5 % Baso % (Auto) 0.3 % Neut # (Auto) 5.87 (1.8-7.7) 10^3/u L Lymph # (Auto) 1.1 (0.8-4.8) 10^3/u L [place] # (Auto) 0.8 (0.2-0.9) 10^3/u L Eos # (Auto) 0.0 (0.0-0.8) 10^3/u L Baso # (Auto) 0.0 (0.0-0.1) 10^3/u L Nucleated RBC % (a uto) 0 % Nucleated RBCs # 0.0 /100WBC PT (12.1-14.9) SECO NDS INR (0.8-1.2) APTT (23.9-36.7) SECO NDS Specimen Type Sample Site ABG pH (7.35-7.45) ABG pCO2 (35-45) mmHg ABG pO2 (80.0-100.0) mmH g ABG HCO3 (22-26) mmol/L ABG O2 Saturation ABG Base Excess (-2.0-2.0) mmol/ L Andrew Test A-a O2 Gradient (5-10) mmHg Hematocrit (37-47) % Hgb O2 Saturation (95-100) % Carboxyhemoglobin (0.4-20.1) %THgb Methemoglobin (0.4-1.5) % Total Hemoglobin (12-16) g/dL Sodium (131-143) mmol/L Potassium (3.5-5.0) mmol/L Glucose (70-115) mg/dL Ionized Calcium (1.1-1.4) mmol/L O2 Delivery Device FiO2 % Sewing Machine Operator Paper Bags ID Chloride (98-107) mmol/L Carbon Dioxide (22-29) mmol/L Anion Gap (5-19) BUN (8-23) mg/dL Creatinine (0.5-0.9) mg/dL GFR Calculation Calculated Osmolal ity (285-295) mOsm/k g Lactic Acid 4.1 H* (0.5-2.2) mmol/L Lactic Acid (Sepsi s) (0.5-2.2) mmol/L Calcium (8.5-10.5) mg/dL Magnesium (1.7-2.3) mg/dL Total Bilirubin (0.15-1.2) mg/dL AST (0-32) U/L ALT (0-33) U/L Alkaline Phosphata se (35-105) IU/L Ammonia (11-51) umol/L Creatine Kinase (26-192) U/L Troponin T Baselin e (0-10) ng/L Troponin T 120 Min [place]qu[place] (0-10) ng/L Delta Troponin T (0-10) ABS# Total Protein (6.6-8.7) g/dL Albumin (3.5-5.2) g/dL Globulin (1.3-4.6) g/dL Lipase (13-60) U/L TSH (0.27-4.20) uIU/ mL Urine Color (Yellow) Urine Appearance (CLEAR) Urine pH (5-7) Ur Specific Gravit y (1.005-1.030) Urine Protein (Negative) Urine Glucose (UA) (Normal) Urine Ketones (Negative) Urine Blood (Negative) Urine Nitrate (Negative) Urine Bilirubin (Negative) Urine Urobilinogen (Negative) mg/dL Ur Leukocyte Yolanda ase (Negative) Urine RBC (0-2) /hpf Urine WBC (0-5) /hpf Ur Squamous Epith Cells (0-5) /hpf Amorphous Sediment Urine Bacteria (NONE) /hpf Urine Opiates Scre en (Negative) ng/mL Ur Barbiturates Sc reen (Negative) ng/mL Ur Phencyclidine S crn (Negative) ng/mL Ur Amphetamines Sc reen (Negative) ng/mL U Benzodiazepines Scrn (Negative) ng/mL Urine Cocaine Scre en (Negative) ng/mL U Marijuana (THC) Screen (Negative) ng/mL Ethyl Alcohol (0-10) mg/dL Serum Ketones Negative (Negative) SARS-CoV-2 Ag (Rap id) (Negative) Blood Type Rho(D) Type Antibody Screen Crossmatch 10/31/20 10/31/20 10/31/20 Range/Units 14:00 14:00 14:35 WBC (4.0-10.0) 10^3/ uL RBC (4.1-5.3) 10^6/u L Hgb (11.5-15.3) g/dL Hct (37.0-47.0) % MCV (81-99) fL MCH (28.0-34.0) pg MCHC (30.0-36.0) g/dL RDW (12.1-15.1) % Plt Count (130-400) 10^3/c mm MPV (7.4-10.4) fL Neut % (Auto) % Lymph % (Auto) % [place] % (Auto) % Eos % (Auto) % Baso % (Auto) % Neut # (Auto) (1.8-7.7) 10^3/u L Lymph # (Auto) (0.8-4.8) 10^3/u L [place] # (Auto) (0.2-0.9) 10^3/u L Eos # (Auto) (0.0-0.8) 10^3/u L Baso # (Auto) (0.0-0.1) 10^3/u L Nucleated RBC % (a uto) % Nucleated RBCs # /100WBC PT 30.50 H (12.1-14.9) SECO NDS INR 2.86 H (0.8-1.2) APTT 47.0 H (23.9-36.7) SECO NDS Specimen Type Sample Site ABG pH (7.35-7.45) ABG pCO2 (35-45) mmHg ABG pO2 (80.0-100.0) mmH g ABG HCO3 (22-26) mmol/L ABG O2 Saturation ABG Base Excess (-2.0-2.0) mmol/ L Andrew Test A-a O2 Gradient (5-10) mmHg Hematocrit (37-47) % Hgb O2 Saturation (95-100) % Carboxyhemoglobin (0.4-20.1) %THgb Methemoglobin (0.4-1.5) % Total Hemoglobin (12-16) g/dL Sodium (131-143) mmol/L Potassium (3.5-5.0) mmol/L Glucose (70-115) mg/dL Ionized Calcium (1.1-1.4) mmol/L O2 Delivery Device FiO2 % Sewing Machine Operator Paper Bags ID Chloride (98-107) mmol/L Carbon Dioxide (22-29) mmol/L Anion Gap (5-19) BUN (8-23) mg/dL Creatinine (0.5-0.9) mg/dL GFR Calculation Calculated Osmolal ity (285-295) mOsm/k g Lactic Acid (0.5-2.2) mmol/L Lactic Acid (Sepsi s) (0.5-2.2) mmol/L Calcium (8.5-10.5) mg/dL Magnesium (1.7-2.3) mg/dL Total Bilirubin (0.15-1.2) mg/dL AST (0-32) U/L ALT (0-33) U/L Alkaline Phosphata se (35-105) IU/L Ammonia (11-51) umol/L Creatine Kinase (26-192) U/L Troponin T Baselin e 40 H (0-10) ng/L Troponin T 120 Min [place]qu[place] 40.01 H (0-10) ng/L Delta Troponin T 0.01 (0-10) ABS# Total Protein (6.6-8.7) g/dL Albumin (3.5-5.2) g/dL Globulin (1.3-4.6) g/dL Lipase (13-60) U/L TSH (0.27-4.20) uIU/ mL Urine Color (Yellow) Urine Appearance (CLEAR) Urine pH (5-7) Ur Specific Gravit y (1.005-1.030) Urine Protein (Negative) Urine Glucose (UA) (Normal) Urine Ketones (Negative) Urine Blood (Negative) Urine Nitrate (Negative) Urine Bilirubin (Negative) Urine Urobilinogen (Negative) mg/dL Ur Leukocyte Yolanda ase (Negative) Urine RBC (0-2) /hpf Urine WBC (0-5) /hpf Ur Squamous Epith Cells (0-5) /hpf Amorphous Sediment Urine Bacteria (NONE) /hpf Urine Opiates Scre en (Negative) ng/mL Ur Barbiturates Sc reen (Negative) ng/mL Ur Phencyclidine S crn (Negative) ng/mL Ur Amphetamines Sc reen (Negative) ng/mL U Benzodiazepines Scrn (Negative) ng/mL Urine Cocaine Scre en (Negative) ng/mL U Marijuana (THC) Screen (Negative) ng/mL Ethyl Alcohol (0-10) mg/dL Serum Ketones (Negative) SARS-CoV-2 Ag (Rap id) (Negative) Blood Type Rho(D) Type Antibody Screen Crossmatch 10/31/20 10/31/20 10/31/20 Range/Units 14:35 16:00 16:00 WBC (4.0-10.0) 10^3/ uL RBC (4.1-5.3) 10^6/u L Hgb (11.5-15.3) g/dL Hct (37.0-47.0) % MCV (81-99) fL MCH (28.0-34.0) pg MCHC (30.0-36.0) g/dL RDW (12.1-15.1) % Plt Count (130-400) 10^3/c mm MPV (7.4-10.4) fL Neut % (Auto) % Lymph % (Auto) % [place] % (Auto) % Eos % (Auto) % Baso % (Auto) % Neut # (Auto) (1.8-7.7) 10^3/u L Lymph # (Auto) (0.8-4.8) 10^3/u L [place] # (Auto) (0.2-0.9) 10^3/u L Eos # (Auto) (0.0-0.8) 10^3/u L Baso # (Auto) (0.0-0.1) 10^3/u L Nucleated RBC % (a uto) % Nucleated RBCs # /100WBC PT (12.1-14.9) SECO NDS INR (0.8-1.2) APTT (23.9-36.7) SECO NDS Specimen Type Sample Site ABG pH (7.35-7.45) ABG pCO2 (35-45) mmHg ABG pO2 (80.0-100.0) mmH g ABG HCO3 (22-26) mmol/L ABG O2 Saturation ABG Base Excess (-2.0-2.0) mmol/ L Andrew Test A-a O2 Gradient (5-10) mmHg Hematocrit (37-47) % Hgb O2 Saturation (95-100) % Carboxyhemoglobin (0.4-20.1) %THgb Methemoglobin (0.4-1.5) % Total Hemoglobin (12-16) g/dL Sodium (131-143) mmol/L Potassium (3.5-5.0) mmol/L Glucose (70-115) mg/dL Ionized Calcium (1.1-1.4) mmol/L O2 Delivery Device FiO2 % Sewing Machine Operator Paper Bags ID Chloride (98-107) mmol/L Carbon Dioxide (22-29) mmol/L Anion Gap (5-19) BUN (8-23) mg/dL Creatinine (0.5-0.9) mg/dL GFR Calculation Calculated Osmolal ity (285-295) mOsm/k g Lactic Acid (0.5-2.2) mmol/L Lactic Acid (Sepsi s) (0.5-2.2) mmol/L Calcium (8.5-10.5) mg/dL Magnesium (1.7-2.3) mg/dL Total Bilirubin (0.15-1.2) mg/dL AST (0-32) U/L ALT (0-33) U/L Alkaline Phosphata se (35-105) IU/L Ammonia (11-51) umol/L Creatine Kinase (26-192) U/L Troponin T Baselin e (0-10) ng/L Troponin T 120 Min [place] (0-10) ng/L Delta Troponin T (0-10) ABS# Total Protein (6.6-8.7) g/dL Albumin (3.5-5.2) g/dL Globulin (1.3-4.6) g/dL Lipase (13-60) U/L TSH (0.27-4.20) uIU/ mL Urine Color Straw (Yellow) Urine Appearance Clear (CLEAR) Urine pH 5 (5-7) Ur Specific Gravit y 1.020 (1.005-1.030) Urine Protein Neg (Negative) Urine Glucose (UA) Norm (Normal) Urine Ketones Negative (Negative) Urine Blood Neg (Negative) Urine Nitrate Negative (Negative) Urine Bilirubin 1+ H (Negative) Urine Urobilinogen Norm (Negative) mg/dL Ur Leukocyte Yolanda ase Negative (Negative) Urine RBC None (0-2) /hpf Urine WBC Rare (0-5) /hpf Ur Squamous Epith Cells Rare (0-5) /hpf Amorphous Sediment Not Reportable Urine Bacteria Trace (NONE) /hpf Urine Opiates Scre en Negative (Negative) ng/mL Ur Barbiturates Sc reen Negative (Negative) ng/mL Ur Phencyclidine S crn Negative (Negative) ng/mL Ur Amphetamines Sc reen Negative (Negative) ng/mL U Benzodiazepines Scrn Negative (Negative) ng/mL Urine Cocaine Scre en Negative (Negative) ng/mL U Marijuana (THC) Screen Negative (Negative) ng/mL Ethyl Alcohol (0-10) mg/dL Serum Ketones (Negative) SARS-CoV-2 Ag (Rap id) (Negative) Blood Type O Positive Rho(D) Type Positive / 4+ Antibody Screen Negative Crossmatch See Detail 10/31/20 10/31/20 Range/Units 16:57 17:00 WBC (4.0-10.0) 10^3/ uL RBC (4.1-5.3) 10^6/u L Hgb (11.5-15.3) g/dL Hct (37.0-47.0) % MCV (81-99) fL MCH (28.0-34.0) pg MCHC (30.0-36.0) g/dL RDW (12.1-15.1) % Plt Count (130-400) 10^3/c mm MPV (7.4-10.4) fL Neut % (Auto) % Lymph % (Auto) % [place] % (Auto) % Eos % (Auto) % Baso % (Auto) % Neut # (Auto) (1.8-7.7) 10^3/u L Lymph # (Auto) (0.8-4.8) 10^3/u L [place] # (Auto) (0.2-0.9) 10^3/u L Eos # (Auto) (0.0-0.8) 10^3/u L Baso # (Auto) (0.0-0.1) 10^3/u L Nucleated RBC % (a uto) % Nucleated RBCs # /100WBC PT (12.1-14.9) SECO NDS INR (0.8-1.2) APTT (23.9-36.7) SECO NDS Specimen Type Sample Site ABG pH (7.35-7.45) ABG pCO2 (35-45) mmHg ABG pO2 (80.0-100.0) mmH g ABG HCO3 (22-26) mmol/L ABG O2 Saturation ABG Base Excess (-2.0-2.0) mmol/ L Andrew Test A-a O2 Gradient (5-10) mmHg Hematocrit (37-47) % Hgb O2 Saturation (95-100) % Carboxyhemoglobin (0.4-20.1) %THgb Methemoglobin (0.4-1.5) % Total Hemoglobin (12-16) g/dL Sodium (131-143) mmol/L Potassium (3.5-5.0) mmol/L Glucose (70-115) mg/dL Ionized Calcium (1.1-1.4) mmol/L O2 Delivery Device FiO2 % Sewing Machine Operator Paper Bags ID Chloride (98-107) mmol/L Carbon Dioxide (22-29) mmol/L Anion Gap (5-19) BUN (8-23) mg/dL Creatinine (0.5-0.9) mg/dL GFR Calculation Calculated Osmolal ity (285-295) mOsm/k g Lactic Acid (0.5-2.2) mmol/L Lactic Acid (Sepsi s) 4.8 H* (0.5-2.2) mmol/L Calcium (8.5-10.5) mg/dL Magnesium (1.7-2.3) mg/dL Total Bilirubin (0.15-1.2) mg/dL AST (0-32) U/L ALT (0-33) U/L Alkaline Phosphata se (35-105) IU/L Ammonia (11-51) umol/L Creatine Kinase (26-192) U/L Troponin T Baselin e (0-10) ng/L Troponin T 120 Min [place] (0-10) ng/L Delta Troponin T (0-10) ABS# Total Protein (6.6-8.7) g/dL Albumin (3.5-5.2) g/dL Globulin (1.3-4.6) g/dL Lipase (13-60) U/L TSH (0.27-4.20) uIU/ mL Urine Color (Yellow) Urine Appearance (CLEAR) Urine pH (5-7) Ur Specific Gravit y (1.005-1.030) Urine Protein (Negative) Urine Glucose (UA) (Normal) Urine Ketones (Negative) Urine Blood (Negative) Urine Nitrate (Negative) Urine Bilirubin (Negative) Urine Urobilinogen (Negative) mg/dL Ur Leukocyte Yolanda ase (Negative) Urine RBC (0-2) /hpf Urine WBC (0-5) /hpf Ur Squamous Epith Cells (0-5) /hpf Amorphous Sediment Urine Bacteria (NONE) /hpf Urine Opiates Scre en (Negative) ng/mL Ur Barbiturates Sc reen (Negative) ng/mL Ur Phencyclidine S crn (Negative) ng/mL Ur Amphetamines Sc reen (Negative) ng/mL U Benzodiazepines Scrn (Negative) ng/mL Urine Cocaine Scre en (Negative) ng/mL U Marijuana (THC) Screen (Negative) ng/mL Ethyl Alcohol (0-10) mg/dL Serum Ketones (Negative) SARS-CoV-2 Ag (Rap id) Negative (Negative) Blood Type Rho(D) Type Antibody Screen Crossmatch EKG Data^: EKG 1: Attestation: I personally reviewed and interpreted this EKG as follows: Interpretation: Normal sinus rhythm at 98 beats a minute, LVH, interventricular conduction delay, no acute ST or T wave changes. Discharge Plan Discharge Patient Disposition: Xfer Short-Term Hosp Clinical Impression: Acute GI bleeding Condition: Stable Prescriptions: No Action furosemide 40 mg tablet 40 mg PO QAM RF: 0 potassium chloride 10 mEq tablet extended release 20 meq PO DAILY RF: 0 ondansetron 8 mg tablet,disintegrating 8 mg PO Q8H PRN (Reason: Nausea) RF: 0 pantoprazole 40 mg tablet,delayed release (DR/EC) 40 mg PO DAILY RF: 0 ibuprofen 200 mg Tablet 200 mg PO PRN RF: 0 ergocalciferol (vitamin D2) 1,250 mcg (50,000 unit) capsule 50,000 unit PO Q7D RF: 0 albuterol sulfate 90 mcg/actuation HFA aerosol inhaler 2 puff INHALATION Q4H PRN (Reason: Shortness Of Breath) RF: 0 Eliquis DVT-PE Treat 30D Start See Rx Instructions .ROUTE .COMPLEX RF: 0 thyroid (pork) [Cornelia Thyroid] 120 mg tablet 120 mg PO QAM RF: 0 Referrals: Phil Cisneros MD [Primary Care Provider] - Coding Level of Care Code ED Home Demonstration Agent for Chg Fwd Exam Comprehensive
--- NOTE | 2020-10-31 14:03 | PC.PHAR ---
pts family states her and her father help take care of the pts medications-pts family states the pt is taking armour thyroid daily ext med history shows last filled on 05/07/21 90d/s-pts family states the pt is taking the starter pack of eliquis--pts family states the pt has been taking 10mg bid and has taken for 3 days and states she thinks the pt has 4 more days left at 10mg bid then is unsure if pt was to do 5mg bid ext med history doesnt pull up when this was filled-pts family states the pt has a proair inhaler but hasnt used
[2020-10-31 14:06] LABS: Basophils % 0.3 %; Eosinophils % 0.5 %; Lymphocytes # 1.1 10^3/uL (0.8-4.8); Lymphocytes % 13.4 %; Mean Corpuscular HGB Conc 31.6 g/dL (30.0-36.0); Mean Corpuscular Hemoglobin 34.1 pg (28.0-34.0); Mean Platelet Volume 11.3 fL (7.4-10.4); Monocytes # 0.8 10^3/uL (0.2-0.9); Monocytes % 10.3 %; Neutrophils # 5.87 10^3/uL (1.8-7.7); Neutrophils % 74.9 %; Nucleated Red Blood Cells % 0 %; Platelet Count 89 10^3/cmm (130-400); Red Blood Count 1.76 10^6/uL (4.1-5.3); Red Cell Distribution Width 16.3 % (12.1-15.1); White Blood Count 7.8 10^3/uL (4.0-10.0)
[2020-10-31 14:08] LABS: ABG PCO2 32.3 mmHg (35-45); Alveolar-Arterial Oxygen Gradi 2.7 mmHg (5-10); Arterial Blood Gas Hematocrit 21.8 % (37-47); Base Excess ABG 1.8 mmol/L (-2.0-2.0); Blood Gas Allen Test Pos; Blood Gas Operator Identificat glc; Blood Gas Sample Site Radial, right; Blood Gas Sample Type Arterial; Carboxyhemoglobin 1.8 %THgb (0.4-20.1); HCO3 ABG 25.1 mmol/L (22-26); HGB O2 Sat 95.5 % (95-100); Ionized Calcium Level - ABG 1.2 mmol/L (1.1-1.4); Methemoglobin 1.1 % (0.4-1.5); Oxygen Saturation ABG 98.3; Potassium Level - ABG 3.6 mmol/L (3.5-5.0); Total Hemoglobin 7.1 g/dL (12-16)
[2020-10-31 14:09] LABS: Oxygen Device ROOM AIR
[2020-10-31 14:29] LABS: Ammonia 154 umol/L (11-51)
[2020-10-31 14:30] LABS: INR 2.86 (0.8-1.2)
[2020-10-31 14:35] LABS: Ketone (Acetest) Serum Negative (Negative); Troponin(5th) Baseline 40 ng/L (0-10)
[2020-10-31 14:40] LABS: Albumin Level 4.6 g/dL (3.5-5.2); Chloride 102 mmol/L (98-107); Potassium 3.6 mmol/L (3.5-5.1); Sodium 137 mmol/L (136-145)
[2020-10-31 14:41] LABS: Lactic Sepsis W/Reflex 4.1 mmol/L (0.5-2.2)
--- NOTE | 2020-10-31 14:47 | CTR_ITS ---
PROCEDURE INFORMATION: Exam: CTA Chest With Contrast Exam date and time: 10/31/2020 3:03 PM Age: 75 years old Clinical indication: Abdominal tenderness and nausea; Prior surgery; Surgery date: 6+ months; Surgery type: Appy, hyst, ooph, port; Patient HX: HX of dvt - dyspnea - nausea - abd pain; Additional info: Dyspnea, known dvts TECHNIQUE: Imaging protocol: Computed tomographic angiography of the chest with contrast. 3D rendering (Not supervised by radiologist): MIP and/or 3D reconstructed images were created by the technologist. Radiation optimization: All CT scans at this facility use at least one of these dose optimization techniques: automated exposure control; mA and/or kV adjustment per patient size (includes targeted exams where dose is matched to clinical indication); or iterative reconstruction. Contrast material: VISI 320; Contrast volume: 95 ml; Contrast route: INTRAVENOUS (IV); COMPARISON: CTA Chest-Pulmonary Emb [id number] 09/14/2020 1:19 PM RADIATION DOSE METRICS: Total DLP (mGy-cm): 1875.89 FINDINGS: Pulmonary arteries: No large central pulmonary artery embolus. Evaluation of the peripheral pulmonary arteries is limited due to paucity of intravascular contrast. Aorta: There is a stent in the ascending aorta. No dissection. Lungs: Unremarkable. No consolidation. No masses. Pleural spaces: Unremarkable. No pneumothorax. No pleural effusion. Heart: Unremarkable. No cardiomegaly. No pericardial effusion. Lymph nodes: Unremarkable. No enlarged lymph nodes. Bones/joints: Degenerative change is identified in the spine. There is no evidence for acute fracture or malalignment. Soft tissues: Unremarkable. IMPRESSION: There are no acute concerning abnormalities. No large central pulmonary artery embolus. Evaluation of the peripheral pulmonary arteries is limited due to paucity of intravascular contrast. PROCEDURE INFORMATION: Exam: CT Abdomen And Pelvis With Contrast Exam date and time: 10/31/2020 3:03 PM Age: 75 years old Clinical indication: Abdominal tenderness and nausea; Prior surgery; Surgery date: 6+ months; Surgery type: Appy, hyst, ooph, port; Patient HX: HX of dvt - dyspnea - nausea - abd pain; Additional info: Dyspnea, known dvts TECHNIQUE: Imaging protocol: Computed tomography of the abdomen and pelvis with contrast. Radiation optimization: All CT scans at this facility use at least one of these dose optimization techniques: automated exposure control; mA and/or kV adjustment per patient size (includes targeted exams where dose is matched to clinical indication); or iterative reconstruction. Contrast material: VISI 320; Contrast volume: 95 ml; Contrast route: INTRAVENOUS (IV); COMPARISON: CTA Chest-Pulmonary Emb [id number] 09/14/2020 1:19 PM RADIATION DOSE METRICS: Total DLP (mGy-cm): 1875.89 FINDINGS: Liver: Findings are consistent with liver cirrhosis. No liver mass is identified. Gallbladder and bile ducts: Normal. No calcified stones. No ductal dilation. Pancreas: Normal. No ductal dilation. Spleen: Normal. No splenomegaly. Adrenal glands: Normal. No mass. Kidneys and ureters: Normal. No hydronephrosis. Stomach and bowel: Colonic diverticula are present although there are no CT findings to suggest diverticulitis. There is probable wall thickening of the ascending colon. For example, as seen on coronal image 30. There is also probable wall thickening of the gastric antrum as seen on series 3, image 28. Evaluation is limited without intraluminal contrast. No bowel obstruction. Appendix: There has been an appendectomy. Intraperitoneal space: There is a small amount of fluid in the pelvis. No abscess or free air. Vasculature: Unremarkable. No abdominal aortic aneurysm. Lymph nodes: Unremarkable. No enlarged lymph nodes. Urinary bladder: There is a Brown catheter in a decompressed bladder. There is gas in the bladder. Reproductive: There has been a hysterectomy. Bones/joints: Degenerative change is identified in the spine. No acute fracture. Soft tissues: Unremarkable. CT/CT angio chest w abd pel w con IMPRESSION: There is probable gastritis and colitis.Clinical correlation is advised. Radiation Dose CTDIVOL = (mGy): DLP = 1875.89~1875.89 (mGy-cm)
[2020-10-31] MEDS: ondansetron 2 mg/ML SDV 2 mL 4 MG IVP (15:00)
[2020-10-31] MEDS: sodium chloride 0.9% 1,000 ML 999 ML IV (15:00)
[2020-10-31 15:01] LABS: Alanine Aminotransferase 25 U/L (0-33); Alkaline Phosphatase 156 IU/L (35-105); Anion Gap 15.7 (5-19); Aspartate Amino Transferase 53 U/L (0-32); Blood Urea Nitrogen 50 mg/dL (8-23); Calcium 8.1 mg/dL (8.5-10.5); Carbon Dioxide 23 mmol/L (22-29); Creatine Phosphokinase 34 U/L (26-192); Globulin 2.4 g/dL (1.3-4.6); Glucose 192 mg/dL (65-115); Lipase 32 U/L (13-60); Magnesium 1.8 mg/dL (1.7-2.3); Osmolality Calculated 305 mOsm/kg (285-295); Total Bilirubin 0.7 mg/dL (0.15-1.2); Total Protein 4.9 g/dL (6.6-8.7)
[2020-10-31] MEDS: pantoprazole 40 mg SDV 80 MG IVP (15:01)
[2020-10-31 15:04] LABS: Alcohol Level < 10 mg/dL (0-10)
[2020-10-31 15:07] LABS: Troponin 5 2HR 40.01 ng/L (0-10); Troponin 5 2HR Delta 0.01 ABS# (0-10)
[2020-10-31] MEDS: LORazepam 2 mg/mL INJ 1 mL 0.5 MG IVP ×2 (15:22→19:05)
--- NOTE | 2020-10-31 15:30 | ECG_ITS ---
[facility] Test Date: 2020-10-31 Pat Name: Lexie Sylvester Department: Room: Gender: Female Capacity Planning Analyst: : 1945 Requested By: Shameka Hwang Order Number: [id number] Morgan MD: Sade Barraza M.D. Measurements Intervals [place] Rate: 98 P: 0 SC: 119 QRS: -38 QRSD: 111 T: 81 QT: 388 QTc: 497 Interpretive Statements SINUS RHYTHM WITH SHORT SC INTERVAL LEFT AXIS DEVIATION [QRS AXIS < -30] PATTERN CONSISTENT WITH PULMONARY DISEASE SEPTAL MYOCARDIAL INFARCTION , PROBABLY OLD [40+ ms Q WAVE IN V1/V2] Compared to ECG 08/25/2014 00:12:15 Short SC interval now present Sinus tachycardia no longer present Left ventricular hypertrophy no longer present ST (T wave) deviation no longer present Myocardial infarct finding still present Electronically Signed On 11-01-2020 12:19:49 CDT by Sade Barraza M.D. [id number]
[2020-10-31] MEDS: pantoprazole 40 MG in sodium chloride 0.9% (plus) 100 ML 20 MG IV (15:48)
[2020-10-31 15:51] LABS: Reflex Lactate Order REFLEX LACTIC ORDERD
[2020-10-31 16:20] LABS: Bacteria Urine TRACE /hpf; Bilirubin Urine 1+ (Negative); Blood Urine Neg (Negative); Glucose Urine UA Norm (Normal); Ketones Urine Negative (Negative); Leukocyte Esterase Urine Negative (Negative); Nitrate Urine Negative (Negative); Protein Urine Neg (Negative); Squamous Epithelial Cell Urine RARE /hpf (0-5); Urine Appearance Clear (CLEAR); Urine Color Straw (Yellow); Urobilinogen Urine Norm (Negative); WBC Urine RARE /hpf (0-5); pH Urine 5 (5-7)
[2020-10-31] MEDS: iodixanol 320 mg/mL 100mL Btl IV (16:20)
[2020-10-31 16:21] LABS: Add Urine Culture? No
[2020-10-31 16:22] LABS: Amphetamines Screen Urine Negative (Negative); Barbiturates Screen Urine Negative (Negative); Benzodiazepines Screen Urine Negative (Negative); Cocaine Screen Urine Negative (Negative); Opiate Screen Urine Negative (Negative); PCP Screen Urine Negative (Negative); THC Screen Urine Negative (Negative)
[2020-10-31] MEDS: haloperidol inj 5 mg/mL INJ 1 mL IM (16:59)
[2020-10-31 17:23] LABS: SARS Covid-2 Antigen Negative (Negative)
[2020-10-31 17:33] LABS: Lactic Acid level (Lactate) 4.8 mmol/L (0.5-2.2)
[2020-10-31] MEDS: piperacillin-tazobactam 3.375 GM in sodium chloride 0.9% (plus) 50 ML IV (17:37)
--- NOTE | 2020-10-31 19:48 | PC.NURSE ---
Initial vitals for blood transfusion scanned into chart.
[2020-10-31] MEDS: sodium chloride 0.9% 250 ML IV (21:08)
== END 2020-10-31 21:33 | disposition short-term general hospital (02) ==
PROVIDERS: Emergency Provider Emergency Medicine; PCP Family Medicine
DX: K92.2 Gastrointestinal hemorrhage, unspecified (principal); Z79.01 Long term (current) use of anticoagulants; Z85.42 Personal history of malignant neoplasm of other parts of uterus; Z85.850 Personal history of malignant neoplasm of thyroid
CPT/HCPCS: 36415; 36430; 36600; 51702; 70450; 71045; 71275; 74177; 80051; 80053; 80306; 80307; 81001; 82009; 82140; 82330; 82550; 82805; 83605; 83690; 83735; 84443; 84484; 85025; 85610; 85730; 86850; 86900; 86920; 87040; 87086; 87426; 93005; 96361; 96365; 96367; 96372; 96375; 96376; 99285; C9113; J1630; J2060; J2405; J2543; J7030; J7050; P9016; Q9967

== ENCOUNTER 2020-11-10 07:38 | Outpatient (CLI) | payer MEDICARE, BC, SELFPAY ==
[2020-11-10 08:43] LABS: Basophils % 0.7 %; Eosinophils # 0.2 10^3/uL (0.0-0.8); Hemoglobin 7.4 g/dL (11.5-15.3); Lymphocytes # 0.9 10^3/uL (0.8-4.8); Lymphocytes % 14.5 %; Mean Corpuscular HGB Conc 32.2 g/dL (30.0-36.0); Mean Corpuscular Hemoglobin 32.6 pg (28.0-34.0); Mean Corpuscular Volume 101.3 fL (81-99); Mean Platelet Volume 9.8 fL (7.4-10.4); Monocytes # 0.7 10^3/uL (0.2-0.9); Monocytes % 11.2 %; Neutrophils # 4.24 10^3/uL (1.8-7.7); Neutrophils % 70.1 %; Nucleated Red Blood Cells % 0 %; Platelet Count 84 10^3/cmm (130-400); Red Blood Count 2.27 10^6/uL (4.1-5.3); Red Cell Distribution Width 19.1 % (12.1-15.1); White Blood Count 6.1 10^3/uL (4.0-10.0)
[2020-11-10 09:03] LABS: Alanine Aminotransferase 23 U/L (0-33); Albumin Level 2.4 g/dL (3.5-5.2); Alkaline Phosphatase 185 IU/L (35-105); Anion Gap 11.3 (5-19); Aspartate Amino Transferase 52 U/L (0-32); Blood Urea Nitrogen 14 mg/dL (8-23); Calcium 7.4 mg/dL (8.5-10.5); Carbon Dioxide 23 mmol/L (22-29); Chloride 106 mmol/L (98-107); Globulin 2.7 g/dL (1.3-4.6); Glucose 123 mg/dL (65-115); Osmolality Calculated 284 mOsm/kg (285-295); Potassium 4.3 mmol/L (3.5-5.1); Sodium 136 mmol/L (136-145); Total Bilirubin 0.7 mg/dL (0.15-1.2); Total Protein 5.1 g/dL (6.6-8.7)
[2020-11-10] MEDS: diphenhydrAMINE 25 mg Capsule PO (10:30)
[2020-11-10] MEDS: acetaminophen 325 mg Tablet 650 MG PO (10:30)
[2020-11-10] MEDS: sodium chloride 0.9% 250 ML 999 ML IV (10:30)
[2020-11-10 10:35] LABS: Ammonia 47 umol/L (11-51)
[2020-11-10 10:37] LABS: Alanine Aminotransferase 23 U/L (0-33); Albumin Level 2.4 g/dL (3.5-5.2); Alkaline Phosphatase 194 IU/L (35-105); Aspartate Amino Transferase 57 U/L (0-32); Total Bilirubin 0.7 mg/dL (0.15-1.2); Total Protein 5.4 g/dL (6.6-8.7)
[2020-11-10 11:25] VITALS: BP 126/58; PULSE 77; RESP 18; TEMP 37.1; O2SAT 99
[2020-11-10] MEDS: FUROsemide 10 mg/mL SDV 2mL 20 MG IV (13:00)
[2020-11-10 14:30] VITALS: BP 129/52; PULSE 78; RESP 18; TEMP 37.3; O2SAT 99
--- NOTE | 2020-11-11 18:44 | ONC FU_ITS ---
Dr. Hall Patient Follow-Up Note Patient: Lexie Sylvester Unit #: [id number]: 1945 Dicatated By: Gabe Hall M.D.Date of Visit:November 10, 2020 Onc Med Follow-up/Prog Note Chief Complaint: Cholangiocarcinoma. 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 She has previously been treated for endometrial cancer and for thyroid cancer. In October 2019 she had presented to the emergency room with jaundice. Her initial CT scan showed an ill-defined inhomogeneous hypodense mass in the left lobe of the liver measuring 5.8 cm. There is mild intrahepatic ductal dilatation. Her ERCP showed no definite filling defects in the bile ducts. Abdominal MRI showed infiltrative mass in the left lobe of the liver measuring 8.1 x 5.5 cm. It was noted to be contiguous with the anterior gallbladder wall. There was marked hepatomegaly with nodular hepatic contour suggesting underlying cirrhosis. There was markedly dilated left sided intrahepatic bile ducts measuring up to 1.1 cm in diameter. Needle biopsy of the liver on 11/20/2019 showed cirrhosis with marked bile ductular proliferation and neutrophilic inflammation. There was no malignancy identified. She had further evaluation at [facility] where she underwent diagnostic laparoscopy with multiple liver biopsies on 12/03/2019. She was noted to have a mass involving segment 4 of the liver in a background of liver cirrhosis. Pathology on the liver mass showed poorly differentiated adenocarcinoma. Pathology on biopsies from the right lobe of the liver showed bridging fibrosis. Overall, the findings were felt to be consistent with cholangiocarcinoma with underlying liver cirrhosis. On 12/09/2019 she had medical oncology consultation with Dr. Jose Luis Lopez, following which she began a course of treatment with cisplatin/gemcitabine. A repeat MRI on 02/17/2020, following completion of 3 cycles of chemotherapy, showed stable disease. She then sought treatment at [facility] in [place], [place]. She subsequently began second line chemotherapy with a modified FOLFOX regimen. During her further follow-up she did require some treatment delays and dose reductions due to cytopenias, but she did show some response to the FOLFOX chemotherapy. Her most recent FOLFOX cycle began on 07/07/2020. She then returned to [facility] where she underwent radiation concurrently with capecitabine for chemosensitization. She completed radiation on 08/26/2020. Total dose was 6000 cGy to the abdomen (liver) administered in 15 fractions and 6000 cGy to an upper pelvic lymph node, also administered in 15 fractions. She returned to see Dr. Lopez on 09/14/2020. At that point she was having fever, cough, and shortness of breath. Her CT pulmonary angiogram showed no evidence of pulmonary thromboembolism. There were scattered patchy infiltrates primarily involving the upper lobes with a peripheral distribution. Similar changes were noted to a lesser extent within the lung bases, right greater than left. There was no associated adenopathy. The findings appeared most compatible with underlying pneumonia. She began on empiric antibiotic coverage with Levaquin. She is seen here now so that she can receive some follow-up care locally. She was seen here initially on 09/25/2020, as she desired to try and received at least some of her follow-up care locally. At that point she still had very marginal performance status, but she was beginning to show some recovery. Subsequent to that visit, she did see Dr. Bermeo for pulmonary consultation. On 10/31/2020 she was admitted to [facility] after presenting to our emergency room with altered mental status. She was determined to have hepatic encephalopathy in association with acute GI bleeding. Her ammonia level was significantly elevated at 154 ???mol/L. CT of the chest showed no evidence of pulmonary embolism, and there were no acute pulmonary infiltrates. The liver showed findings consistent with cirrhosis. There was no evidence of mass lesions in the liver and there was no evidence of metastatic disease in the abdomen/pelvis. She was discharged home on a treatment regimen which included lactulose and rifaximin. She had follow-up laboratory studies today which showed her hemoglobin low at 7.5 g, and with that finding she was recommended to have a PRBC transfusion. She says she feels okay, though she still has limited activity. She is able to do some walking at home. ECOG score is 2. Her appetite is been okay. She does not have fever or night sweats. She has not had sore throat or difficulty swallowing. She does not complain of shortness of breath, cough, or chest pain. She has been having some nausea, and she occasionally has pain in the upper abdominal area. She is not having any obvious acid reflux symptoms. She has not had any overt melena or rectal bleeding. She has not yet started the lactulose. Bladder function has been okay. She has no significant joint or bone pain. She does not complain of headache or dizziness. 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 Medications: [place] Thyroid 1 (120 mg) Tablet Oral daily, B Complex 50 1 Tablet Oral daily, [employer] Fish Oil 1 Capsule (of 1000 mg) Oral daily, Docusate Sodium 1 Tablet (of 100 mg) Oral b.i.d. PRN, Furosemide 1 Tablet (of 40 mg) Oral daily, HYDROcodone-Acetaminophen 1 Tablet (of 5-325 mg) Oral four times a day PRN, Ibuprofen 1 (200 mg) Capsule Oral PRN, Lactulose 30 mL (of 10 g/15mL) Solution Oral q 6 hours PRN, Mometasone Furoate 1 Applicator (of 0.1 %) Cream Topical daily PRN, Pantoprazole Sodium 1 Tablet (of 40 mg) Tablet, enteric coated Oral daily, Xifaxan 1 Tablet (of 550 mg) Oral b.i.d. Allergies: oxyCODONE HCl and traMADol HCl. Vital Signs: Performed on November 10, 2020 13:20 Weight - 180 lbs (HIGH) BSA - 0.00 sq.m BMI - 0.00 Temperature - 97.7 F (LOW) Pulse - 78 /min Respiration - 16 /min BP - 129/52 mm(hg) O2 Sat - 98 % Pain - 0 Physical Examination: Constitutional - She appears generally weak, Eyes - Sclerae nonicteric. Conjunctivae clear, ENMT - No lesions noted in the oral cavity, Hematologic/Lymphatic - No cervical, clavicular, or axillary adenopathy, Respiratory - Lungs sound clear, Cardiovascular - Heart rhythm is regular. There is a II/ systolic murmur. There is no gallop or rub noted, Abdomen - Soft. Liver and spleen are not enlarged. There is no abdominal mass or ascites noted and there is no inguinal adenopathy, Extremities - There is currently no edema, Neurologic - She does not appear to have any focal neurologic deficit. Lab/Imaging: Test performed on November 10, 2020 09:40 Ammonia 47 umol/L Protein, Total 5.4 g/dL Albumin 2.4 g/dL Globulin 3.0 g/dL Bilirubin, Total 0.7 mg/dL Bilirubin, Direct 0.30 mg/dL Alkaline Phosphatase 194 IU/L ALT (SGPT) 23 U/L AST (SGOT) 57 U/L Test performed on November 10, 2020 08:25 Sodium 136 mmol/L Potassium 4.3 mmol/L Chloride 106 mmol/L CO2 23 mmol/L Anion Gap 11.3 BUN 14 mg/dL Creatinine 0.6 mg/dL Cr Clearance (Est) 106.03 mL/min Glucose 123 mg/dL Osmolality - Calculated 284 mOsm/kg Calcium 7.4 mg/dL WBC 6.1 10 3/uL RBC 2.27 10 6/uL HGB 7.4 g/dL HCT 23.0 % MCV 101.3 fL MCH 32.6 pg MCHC 32.2 g/dL RDW 19.1 % Platelet Count 84 10 3/cmm MPV 9.8 fL Neutrophils 4.24 10 3/uL Lymphocytes 0.9 10 3/uL Monocytes 0.7 10 3/uL Eosinophils 0.2 10 3/uL Basophils 0.0 10 3/uL Neutrophil % 70.1 % Lymphocyte % 14.5 % Monocyte % 11.2 % Eosinophil % 3.0 % Basophils % 0.7 % NRBC % 0 % Problem List: 1. Intrahepatic cholangiocarcinoma, stage IV, initially diagnosed in November 2019. 2. She had recently completed chemoradiation to the abdomen and to an upper pelvic lymph node. 3. A CT pulmonary angiogram on 09/14/2020 showed evidence of bilateral pneumonia, for which she is on antibiotic therapy with Levaquin. 4. There was evidence of underlying liver cirrhosis by MRI and by liver biopsy. 5. She underwent total thyroidectomy and radioactive iodine ablation for thyroid cancer in 2010. She has subsequent hypothyroidism. 6. She had previous hysterectomy/bilateral salpingo-oophorectomy for endometrial cancer. 7. She has history of valvular heart disease for which she underwent bioprosthetic aortic valve replacement in 2013. Problems Addressed with this Encounter and Plan: 1. Patient with intrahepatic cholangiocarcinoma, stage IV, initially diagnosed in November 2019. She had treatment with cisplatin/gemcitabine chemotherapy from November through January 2020 with a follow-up MRI showing stable disease. On 02/25/2020 she began second line chemotherapy with modified FOLFOX. During subsequent followup she required dose reductions and treatment delays for cytopenias, but she did show evidence of response. Her most recent chemotherapy cycle began on 07/07/2020. She underwent radiation concurrently with capecitabine chemotherapy at [facility] from 08/03/2020 through 08/26/2020, total dose 6000 cGy to the abdomen (liver) administered in 15 fractions and 6000 cGy to an upper pelvic lymph node, also administered in 15 fractions. During subsequent follow-up she had persistent fever and she had very marginal performance status. Thus far she has had no further treatment. Her CT scans of the chest, abdomen, and pelvis on 10/31/2020 showed no evidence of residual, recurrent, or metastatic disease. She will continue expectant management. 2. Her CT pulmonary angiogram on 09/14/2020 showed evidence of bilateral pneumonia. As of her CT scans on 10/31/2020 the pneumonia appeared to be completely resolved. 3. On 10/31/2020 she was admitted to the hospital with hepatic encephalopathy in association with acute GI bleeding. Her ammonia level was significantly elevated, and her CT showed evidence of liver cirrhosis. She is again significantly anemic with hemoglobin 7.5 g, and she will be transfused PRBC. She is starting outpatient medications for the hepatic encephalopathy. I will have her return on Monday to repeat her blood count at that time she is also to bring in a stool sample for FIT. She will have further evaluation as indicated. I will tentatively plan a follow-up visit in 1 week. Signed By: Gabe Hall M.D. <<Signature on File>>
== END 2020-11-10 07:39 | disposition home or self-care (01) ==
LOC: ONCMED 07:41
PROVIDERS: PCP Family Medicine; Visit Provider Internal Medicine Medical Oncology
DX: C22.1 Intrahepatic bile duct carcinoma (principal); J18.9 Pneumonia, unspecified organism; K76.0 Fatty (change of) liver, not elsewhere classified; E03.9 Hypothyroidism, unspecified; Z79.899 Other long term (current) drug therapy; Z92.3 Personal history of irradiation; Z92.21 Personal history of antineoplastic chemotherapy
CPT/HCPCS: 80053; 80076; 82140; 85025; 86850; 86900; 86920; 99215; J1940; J7050; P9016

== ENCOUNTER 2020-11-12 13:32 | Outpatient (CLI) | payer MEDICARE, BC, SELFPAY | END 2020-11-12 13:33 | disposition home or self-care (01) | LOC: ONCMED 13:35 | PROVIDERS: PCP Family Medicine; Visit Provider Internal Medicine Medical Oncology | DX: C22.1 Intrahepatic bile duct carcinoma (principal); D62 Acute posthemorrhagic anemia | CPT/HCPCS: 82274 ==

== ENCOUNTER 2020-11-13 08:38 | Outpatient (CLI) | payer MEDICARE, BC, SELFPAY ==
[2020-11-13 09:20] LABS: Basophils # 0.1 10^3/uL (0.0-0.1); Basophils % 0.8 %; Eosinophils # 0.2 10^3/uL (0.0-0.8); Eosinophils % 3.2 %; Hematocrit 28.9 % (37.0-47.0); Hemoglobin 9.4 g/dL (11.5-15.3); Lymphocytes # 0.9 10^3/uL (0.8-4.8); Lymphocytes % 14.2 %; Mean Corpuscular HGB Conc 32.5 g/dL (30.0-36.0); Mean Corpuscular Hemoglobin 31.6 pg (28.0-34.0); Mean Corpuscular Volume 97.3 fL (81-99); Mean Platelet Volume 10.8 fL (7.4-10.4); Monocytes # 0.8 10^3/uL (0.2-0.9); Monocytes % 12.9 %; Neutrophils # 4.26 10^3/uL (1.8-7.7); Neutrophils % 68.6 %; Nucleated Red Blood Cells % 0 %; Platelet Count 69 10^3/cmm (130-400); Red Blood Count 2.97 10^6/uL (4.1-5.3); Red Cell Distribution Width 19.3 % (12.1-15.1); White Blood Count 6.2 10^3/uL (4.0-10.0)
--- NOTE | 2020-11-13 09:27 | XR_ITS ---
WS: [id number] Abdomen series, Flat and upright 11/13/2020 Clinical Data: ABD SWELLING Comparison: CTA chest, abdomen and pelvis, 10/31/2020. Findings: No free air is seen beneath the diaphragms. No abnormal intra-abdominal masses or calcifica tions are seen. There is an inferior vena caval filter. There are air-fluid levels in the small bowel and colon but no small bowel dilatation. The bladder is full. XR/XR abdomen min 2V [id number] Impression: Moderate generalized ileus.
== END 2020-11-13 08:39 | disposition home or self-care (01) ==
PROVIDERS: PCP Family Medicine; Visit Provider Internal Medicine Medical Oncology
DX: K56.7 Ileus, unspecified (principal); Z79.899 Other long term (current) drug therapy
CPT/HCPCS: 36415; 74019; 85025; 96523

== ENCOUNTER 2020-11-16 06:25 | Outpatient (CLI) | payer MEDICARE, BC, SELFPAY ==
[2020-11-16] VITALS (10 sets, daily range): BP systolic 117–151; BP diastolic 70–81; PULSE 71–81; RESP 18; TEMP 36.6–37.3; O2SAT 17–99
[2020-11-16 12:50] LABS: Basophils % 0.7 %; Eosinophils # 0.2 10^3/uL (0.0-0.8); Eosinophils % 2.8 %; Hematocrit 24.9 % (37.0-47.0); Lymphocytes # 0.8 10^3/uL (0.8-4.8); Lymphocytes % 13.7 %; Mean Corpuscular HGB Conc 32.1 g/dL (30.0-36.0); Mean Corpuscular Hemoglobin 31.5 pg (28.0-34.0); Mean Platelet Volume 10.3 fL (7.4-10.4); Monocytes # 0.8 10^3/uL (0.2-0.9); Monocytes % 12.4 %; Neutrophils # 4.23 10^3/uL (1.8-7.7); Neutrophils % 69.9 %; Nucleated Red Blood Cells % 0 %; Platelet Count 70 10^3/cmm (130-400); Red Blood Count 2.54 10^6/uL (4.1-5.3); Red Cell Distribution Width 18.6 % (12.1-15.1); White Blood Count 6.1 10^3/uL (4.0-10.0)
[2020-11-16 13:08] LABS: Ammonia 43 umol/L (11-51)
[2020-11-16 13:13] LABS: Alanine Aminotransferase 35 U/L (0-33); Albumin Level 2.4 g/dL (3.5-5.2); Alkaline Phosphatase 230 IU/L (35-105); Anion Gap 12.3 (5-19); Aspartate Amino Transferase 82 U/L (0-32); Blood Urea Nitrogen 14 mg/dL (8-23); Calcium 7.3 mg/dL (8.5-10.5); Carbon Dioxide 22 mmol/L (22-29); Chloride 103 mmol/L (98-107); Globulin 2.4 g/dL (1.3-4.6); Glucose 152 mg/dL (65-115); Osmolality Calculated 279 mOsm/kg (285-295); Potassium 4.3 mmol/L (3.5-5.1); Sodium 133 mmol/L (136-145); Total Bilirubin 0.6 mg/dL (0.15-1.2); Total Protein 4.8 g/dL (6.6-8.7)
[2020-11-16] MEDS: acetaminophen 325 mg Tablet 650 MG PO (14:45)
[2020-11-16] MEDS: sodium chloride 0.9% 250 ML 999 ML IV (14:45)
[2020-11-16] MEDS: diphenhydrAMINE 25 mg Capsule PO (14:45)
[2020-11-16] MEDS: FUROsemide 10 mg/mL SDV 2mL 20 MG IV (16:10)
--- NOTE | 2020-11-16 19:00 | ONC FU_ITS ---
Dr. Hall Patient Follow-Up Note Patient: Lexie Sylvester Unit #: [id number]: 1945 Dicatated By: Gabe Hall M.D.Date of Visit:November 16, 2020 Onc Med Follow-up/Prog Note Chief Complaint: Cholangiocarcinoma. 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 She has previously been treated for endometrial cancer and for thyroid cancer. In October 2019 she had presented to the emergency room with jaundice. Her initial CT scan showed an ill-defined inhomogeneous hypodense mass in the left lobe of the liver measuring 5.8 cm. There is mild intrahepatic ductal dilatation. Her ERCP showed no definite filling defects in the bile ducts. Abdominal MRI showed infiltrative mass in the left lobe of the liver measuring 8.1 x 5.5 cm. It was noted to be contiguous with the anterior gallbladder wall. There was marked hepatomegaly with nodular hepatic contour suggesting underlying cirrhosis. There was markedly dilated left sided intrahepatic bile ducts measuring up to 1.1 cm in diameter. Needle biopsy of the liver on 11/20/2019 showed cirrhosis with marked bile ductular proliferation and neutrophilic inflammation. There was no malignancy identified. She had further evaluation at [facility] where she underwent diagnostic laparoscopy with multiple liver biopsies on 12/03/2019. She was noted to have a mass involving segment 4 of the liver in a background of liver cirrhosis. Pathology on the liver mass showed poorly differentiated adenocarcinoma. Pathology on biopsies from the right lobe of the liver showed bridging fibrosis. Overall, the findings were felt to be consistent with cholangiocarcinoma with underlying liver cirrhosis. On 12/09/2019 she had medical oncology consultation with Dr. Jose Luis Lopez, following which she began a course of treatment with cisplatin/gemcitabine. A repeat MRI on 02/17/2020, following completion of 3 cycles of chemotherapy, showed stable disease. She then sought treatment at [facility] in [place], [place]. She subsequently began second line chemotherapy with a modified FOLFOX regimen. During her further follow-up she did require some treatment delays and dose reductions due to cytopenias, but she did show some response to the FOLFOX chemotherapy. Her most recent FOLFOX cycle began on 07/07/2020. She then returned to [facility] where she underwent radiation concurrently with capecitabine for chemosensitization. She completed radiation on 08/26/2020. Total dose was 6000 cGy to the abdomen (liver) administered in 15 fractions and 6000 cGy to an upper pelvic lymph node, also administered in 15 fractions. She returned to see Dr. Lopez on 09/14/2020. At that point she was having fever, cough, and shortness of breath. Her CT pulmonary angiogram showed no evidence of pulmonary thromboembolism. There were scattered patchy infiltrates primarily involving the upper lobes with a peripheral distribution. Similar changes were noted to a lesser extent within the lung bases, right greater than left. There was no associated adenopathy. The findings appeared most compatible with underlying pneumonia. She began on empiric antibiotic coverage with Levaquin. She is seen here now so that she can receive some follow-up care locally. She was seen here initially on 09/25/2020, as she desired to try and received at least some of her follow-up care locally. At that point she still had very marginal performance status, but she was beginning to show some recovery. Subsequent to that visit, she did see Dr. Bermeo for pulmonary consultation. On 10/31/2020 she was admitted to [facility] after presenting to our emergency room with altered mental status. She was determined to have hepatic encephalopathy in association with acute GI bleeding. Her ammonia level was significantly elevated at 154 ???mol/L. CT of the chest showed no evidence of pulmonary embolism, and there were no acute pulmonary infiltrates. The liver showed findings consistent with cirrhosis. There was no evidence of mass lesions in the liver and there was no evidence of metastatic disease in the abdomen/pelvis. During that hospitalization at [facility] she underwent EGD. She was found to have areas of diffuse oozing from the gastric antral mucosa which were cauterized. Also noted were nonbleeding gastric ulcers. She was taken off apixan, and she underwent placement of an inferior vena cava filter. She was discharged home on a treatment regimen which included lactulose and rifaximin. She also was on Protonix 40 mg twice daily. She was seen her for followup on 11/10/2020. Her hemoglobin was low at 7.5 g. Her ammonia level was mildly elevated at 47 ???mol/L. She was given a PRBC transfusion. Her repeat CBC on 11/13/2020 showed adequate hemoglobin 9.4 g. During that time she also had a stool FIT, which was positive. She is seen now for a follow-up visit. She says she feels okay, though she still has very limited activity. Her ECOG score is 3. Appetite is poor. She says that nothing tastes good. She does not have fever or night sweats. She has not had sore throat or cough. Her breathing has been okay. She does not complain of shortness of breath or chest pain. She sometimes has nausea. She is not having acid reflux symptoms. Her bowels have not been moving very much, though she has been taking the lactulose 4 times a day. She has had abdominal swelling, which appears to be most likely gas buildup associated with the lactulose. She has not had obvious melena. She has had a little bit of bright red blood in the stool which appears to be associated with hemorrhoids. Bladder function remains adequate. She has no significant joint or bone pain. She has had some headaches, but not bad. She has not been dizzy or lightheaded. 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 Medications: [place] Thyroid 1 (120 mg) Tablet Oral daily, B Complex 50 1 Tablet Oral daily, [employer] Fish Oil 1 Capsule (of 1000 mg) Oral daily, Docusate Sodium 1 Tablet (of 100 mg) Oral b.i.d. PRN, Furosemide 1 Tablet (of 40 mg) Oral daily, HYDROcodone-Acetaminophen 1 Tablet (of 5-325 mg) Oral four times a day PRN, Ibuprofen 1 (200 mg) Capsule Oral PRN, Lactulose 30 mL (of 10 g/15mL) Solution Oral q 6 hours PRN, Mometasone Furoate 1 Applicator (of 0.1 %) Cream Topical daily PRN, Pantoprazole Sodium 1 Tablet (of 40 mg) Tablet, enteric coated Oral daily, Xifaxan 1 Tablet (of 550 mg) Oral b.i.d. Allergies: oxyCODONE HCl and traMADol HCl. Vital Signs: Performed on November 16, 2020 13:42 Height - 180.00 in Weight - 215.2 lbs (HIGH) BSA - 4.27 sq.m BMI - 4.67 (LOW) Temperature - 98.4 F Pulse - 93 /min Respiration - 18 /min BP - 149/75 mm(hg) (HIGH) O2 Sat - 96 % Pain - 0 Fatigue - 0 Physical Examination: Constitutional - She appears generally weak, Eyes - Sclerae nonicteric. Conjunctivae clear, ENMT - No lesions noted in the oral cavity, Hematologic/Lymphatic - No cervical, clavicular, or axillary adenopathy, Respiratory - Lungs sound clear, Cardiovascular - Heart rhythm is regular. There is a II/ systolic murmur. There is no gallop or rub noted, Abdomen - Moderately distended and tympanic. Liver and spleen are not enlarged. There is no abdominal mass noted. She does not have obvious ascites. There is no inguinal adenopathy noted, Extremities - No edema, Neurologic - No focal neurologic deficits noted. Lab/Imaging: Test performed on November 16, 2020 12:40 Ammonia 43 umol/L Sodium 133 mmol/L Potassium 4.3 mmol/L Chloride 103 mmol/L CO2 22 mmol/L Anion Gap 12.3 BUN 14 mg/dL Creatinine 0.7 mg/dL Cr Clearance (Est) 108.65 mL/min Glucose 152 mg/dL Osmolality - Calculated 279 mOsm/kg Calcium 7.3 mg/dL Protein, Total 4.8 g/dL Albumin 2.4 g/dL Globulin 2.4 g/dL Bilirubin, Total 0.6 mg/dL ALT (SGPT) 35 U/L AST (SGOT) 82 U/L Alkaline Phosphatase 230 IU/L WBC 6.1 10 3/uL RBC 2.54 10 6/uL HGB 8.0 g/dL HCT 24.9 % MCV 98.0 fL MCH 31.5 pg MCHC 32.1 g/dL RDW 18.6 % Platelet Count 70 10 3/cmm MPV 10.3 fL Neutrophils 4.23 10 3/uL Lymphocytes 0.8 10 3/uL Monocytes 0.8 10 3/uL Eosinophils 0.2 10 3/uL Basophils 0.0 10 3/uL Neutrophil % 69.9 % Lymphocyte % 13.7 % Monocyte % 12.4 % Eosinophil % 2.8 % Basophils % 0.7 % NRBC % 0 % Problem List: 1. Intrahepatic cholangiocarcinoma, stage IV, initially diagnosed in November 2019. 2. She had recently completed chemoradiation to the abdomen and to an upper pelvic lymph node. 3. A CT pulmonary angiogram on 09/14/2020 showed evidence of bilateral pneumonia, for which she is on antibiotic therapy with Levaquin. 4. There was evidence of underlying liver cirrhosis by MRI and by liver biopsy. 5. She underwent total thyroidectomy and radioactive iodine ablation for thyroid cancer in 2010. She has subsequent hypothyroidism. 6. She had previous hysterectomy/bilateral salpingo-oophorectomy for endometrial cancer. 7. She has history of valvular heart disease for which she underwent bioprosthetic aortic valve replacement in 2013. Problems Addressed with this Encounter and Plan: 1. Patient with intrahepatic cholangiocarcinoma, stage IV, initially diagnosed in November 2019. She had treatment with cisplatin/gemcitabine chemotherapy from November through January 2020 with a follow-up MRI showing stable disease. On 02/25/2020 she began second line chemotherapy with modified FOLFOX. During subsequent followup she required dose reductions and treatment delays for cytopenias, but she did show evidence of response. Her most recent chemotherapy cycle began on 07/07/2020. She underwent radiation concurrently with capecitabine chemotherapy at [facility] from 08/03/2020 through 08/26/2020, total dose 6000 cGy to the abdomen (liver) administered in 15 fractions and 6000 cGy to an upper pelvic lymph node, also administered in 15 fractions. During subsequent follow-up she had persistent fever and she had very marginal performance status. Thus far she has had no further treatment. Her CT scans of the chest, abdomen, and pelvis on 10/31/2020 showed no evidence of residual, recurrent, or metastatic disease. She will continue expectant management. 2. Her CT pulmonary angiogram on 09/14/2020 showed evidence of bilateral pneumonia. As of her CT scans on 10/31/2020 the pneumonia appeared to be completely resolved. 3. On 10/31/2020 she was admitted to the hospital with hepatic encephalopathy in association with acute GI bleeding. Her ammonia level was significantly elevated, and her CT showed evidence of liver cirrhosis. Her EGD showed areas of diffuse oozing from the gastric antral mucosa which were cauterized. Also noted were nonbleeding gastric ulcers. Her apixaban was discontinued, and she underwent placement of an inferior vena cava filter. As of 11/10/2020 she was significantly anemic with hemoglobin 7.5 g, and she was transfused PRBC. Her stool FIT was postive. As of 11/14/2019 when hemoglobin was adequate 9.4 g, but it is now back down to 8.0 g. With that finding, the probability is very high that she is having ongoing GI blood loss. She will be transfused another 2 units PRBC today. I have contacted Dr. Billy, and he has agreed to see her tomorrow for further GI evaluation. At that time, I also will repeat a CT abdomen/pelvis. In the meantime, she continues treatment with rifaximin and lactulose for the hepatic encephalopathy, and she also is on GI prophylaxis with Protonix 40 mg twice daily. Signed By: Gabe Hall M.D. <<Signature on File>>
== END 2020-11-16 06:26 | disposition home or self-care (01) ==
LOC: ONCMED 06:27
PROVIDERS: PCP Family Medicine; Visit Provider Internal Medicine Medical Oncology
DX: C22.1 Intrahepatic bile duct carcinoma (principal); J18.9 Pneumonia, unspecified organism; K76.0 Fatty (change of) liver, not elsewhere classified; K74.60 Unspecified cirrhosis of liver; E03.9 Hypothyroidism, unspecified; Z85.42 Personal history of malignant neoplasm of other parts of uterus; Z95.2 Presence of prosthetic heart valve; Z79.899 Other long term (current) drug therapy; Z92.3 Personal history of irradiation
CPT/HCPCS: 36430; 80053; 82140; 85025; 86850; 86900; 86920; 99214; J1940; J7050; P9016

== ENCOUNTER 2020-11-17 09:49 | Outpatient (CLI) | payer MEDICARE, BC, SELFPAY ==
--- NOTE | 2020-11-17 10:01 | CT_ITS ---
WS: [id number] CT ABDOMEN AND PELVIS WITH CONTRAST HISTORY: Cirrhosis. TECHNIQUE: Imaging performed of the abdomen and pelvis with IV contrast. Single phase imaging of the abdomen. Coronal and sagittal reformats are submitted. All CT scans at [facility] use at least one of these dose optimization techniques: automated exposure control; mA and/or kV adjustment per patient size (includes targeted exams where dose is matched to clinical indication); or iterativ e reconstruction. IV CONTRAST: Omnipaque 300; 95 mL IV. Oral contrast: Yes. DLP: 1962.7 mGy.cm COMPARISON: 10/31/2020 Lower thorax: Lung bases are clear. Heart is normal size. Small hiatal hernia. Liver/biliary system: Liver is markedly shrunken with a nodular surface consistent with cirrhosis. Mi nimal enlargement of the caudate. Area of decreased attenuation with some very mild peripheral enhanc ement involving the medial segment LEFT lobe of the liver measuring 2.6 x 2.2 cm. There is mild bulgi ng of the contour of the liver. There is additional surface area of decreased attenuation along the a nterior RIGHT lobe of the liver. By history patient has had a prior liver mass. This could be recurre nt. This was probably present on the study of 10/31/2020 but better seen today. No bile duct dilatation . Pneumobilia the central liver. Gallbladder: Normally distended gallbladder with a small amount of air. Pancreas: Marked atrophy of the pancreas. There is a small amount of air in the head of the pancreas and common bile duct insertion site. Spleen: Normal size spleen. No mass or infarct. Adrenal glands: Normal. Right kidney: Mild atrophy. No obstruction. Left kidney: Mild atrophy with no obstruction. Aorta: Normal size aorta with moderate atherosclerotic plaque. IVC is normal size and does contain an IVC filter below the level of the renal veins. Lymphadenopathy: None. Free fluid: There is a moderate amount of ascites throughout the abdomen and pelvis and diffuse soft tissue anasarca which is new since 10/31/2020. There was a very small amount of ascites in the pelvis p rior examination. No peritoneal enhancement. GI tract: No GI tract obstruction. Abdominal wall: Diffuse soft tissue anasarca. Pelvis: Prior hysterectomy. Free fluid in the pelvis. Urinary bladder is minimally distended. Bones: Unremarkable. CT/CT abdomen pelvis w con* [id number] IMPRESSION: 1. Interval development of a large amount of ascites since 10/31/2020. 2. Severe cirrhosis. 3. Hypoechoic mass with minimal peripheral enhancement in the medial segment L EFT lobe of the liver. This is the site of a previously described hepatic mass. Recurrent neoplasm is not excluded. There are additional low-attenuation nodul es along the anterior surface of the RIGHT lobe of the liver. 4. Small amount of air in the gallbladder and pneumobilia in the central liver . 5. No peritoneal implants or adenopathy identified. 6. Marked anasarca.
[2020-11-17] MEDS: iohexol 300 mg/mL 100 mL Btl IV (11:48)
[2020-11-17] MEDS: iohexol 300 mg/mL 50 mL Btl PO (11:49)
== END 2020-11-17 09:50 | disposition home or self-care (01) ==
LOC: RAD 09:54
PROVIDERS: PCP Family Medicine; Visit Provider Internal Medicine Medical Oncology
DX: K74.60 Unspecified cirrhosis of liver (principal); Z20.822 Contact with and (suspected) exposure to COVID-19; R16.0 Hepatomegaly, not elsewhere classified; R60.1 Generalized edema
CPT/HCPCS: 74177; 87635

== ENCOUNTER 2020-11-19 09:00 | Day surgery (SDC) | payer MEDICARE, BC, SELFPAY ==
[2020-11-18 13:27] VITALS: BMI 30.9
--- NOTE | 2020-11-19 09:19 | ANES.PREANE2 ---
Pre-Anesthetic Assessment Pre-Anesthetic Assessment: Height/Weight: Height 1.78 m Weight 97.976 kg Preop Diagnosis: recatl hemorrhage Proposed Procedure: Operation Date: 11/19/20 11:00 Proposed Procedures p EGD/colon 14087 [id number] K62.5(Not Applicable) - Blue Billy MD s Colonoscopy(Not Applicable) - Blue Billy MD Familial anesthetic complications: none Was Beta Mae taken within 24 hours: N/A Was Clonidine taken within 24 hours: N/A Last intake: > 8 hrs Social: Social History: No alcohol and No tobacco Exam: Pre-Anes Outpt Exam: alert, oriented x 3, clear to auscultation bilaterally and regular rate & rhythm Airway: Cervical ROM: WNL MP: 2 Dentition: Chipped (R side top) Pulmonary: Comments: Has never taken albuterol - she isn't sure why she was given it CV/HEM: CV/HEM: CHF Comments: HX bioprosthetic valve (Aortic) platelets 74K Hepatic: Hepatic: None reported (Liver cancer) Comments: ascites - is supposed to have her belly drained today Metabolic: Metabolic: Thyroid Anesthetic Plan: ASA status: 4 Risk of > 500 ml blood loss (7ml/kg in children): No Other Pertinent Information: Patient needs to have paracentesis performed before her endoscopy PFSH Anesthesia PFSH: Medical History Cholangiocarcinoma Endometrial cancer Hypothyroid Liver cirrhosis Pneumonia Rotator cuff arthropathy Thyroid cancer Uterine cancer Valvular heart disease Surgical History Bioprosthetic aortic valve replacement during current hospitalization H/O laparoscopy H/O lumpectomy History of hysterectomy History of liver biopsy History of salpingo-oophorectomy History of thyroidectomy, total Hx of cataract surgery Hx of tonsillectomy Family History Father Cancer Lung Cancer Brother CAD (coronary artery disease) Social History Smoking and tobacco status: never smoked Second hand smoke exposure: No Smoking risk assessment/counseling performed?: No Alcohol intake: never Counseling given: No Counseling given: No Lives independently: Yes Household members: spouse Marital status: Current gender identity: Female Data Anesthesia Cardiac Studies: No Data to Display
[2020-11-19 10:20] VITALS: BP 145/73; PULSE 71; RESP 18; TEMP 36.7; O2SAT 97
[2020-11-19] MEDS: sodium chloride 0.9% 1,000 ML 30 ML IV (10:35)
--- NOTE | 2020-11-19 11:06 | US_ITS ---
WS: [id number] Abdominal ultrasound, limited. History: Evaluate for ascites. Comparison: None. All 4 quadrants are imaged by ultrasound to evaluate for ascites. Large amount of ascites in all 4 qu adrants. Abdominal wall is marked for Dr. Barney prior to paracentesis. US/US abdomen lmt fluid [id number] IMPRESSION: Large amount of ascites.
--- NOTE | 2020-11-19 11:22 | SUR.PREOP ---
patient states port accessed in doctor Rafael s office by his nurse this am.
--- NOTE | 2020-11-19 12:35 | PM.ACPR ---
Acute Procedures Paracentesis: Time out performed: Yes Indication: Ascites Procedure: diagnostic paracentesis Location: [facility]Q Local anesthetic used: lidocaine 1% Amount of anesthesia used (ml): 10 Bedside ultrasound used: yes, Ascites confirmed and location marked Preparation: sterile prep and drape Amount of fluid obtained (ml): 4,700 Fluid: cloudy Post procedure exam: awake, alert, normal BP and normal HR Patient tolerated procedure: well and no complications Complications: none Additional comments: The fluid was sent for appropriate studies.
[2020-11-19 14:42] VITALS: BP 133/73; PULSE 74; RESP 18; TEMP 36.6; O2SAT 95
[2020-11-19 14:53] VITALS: BP 154/72; PULSE 71; RESP 18; TEMP 36.6; O2SAT 97
--- NOTE | 2020-11-20 14:29 | W.PM.OPSUD ---
Surgery/Procedure H&P Update DATE OF PROCEDURE: November 19, 2020 DATE H&P PERFORMED: 11/17/20 H&P UPDATE INFORMATION: I have reviewed H&P completed within last 30 days, I have examined patient prior to procedure and No changes to prior documentation PREOP DIAGNOSIS: recatl hemorrhage PLANNED PROCEDURE: Operation Date: 11/19/20 11:00 Proposed Procedures p EGD/colon 00947 [id number] K62.5(Not Applicable) - Blue Billy MD s Colonoscopy(Not Applicable) - Blue Billy MD
== END 2020-11-19 15:38 | disposition home or self-care (01) ==
PROVIDERS: PCP Family Medicine; Visit Provider Surgery
PROC: 0DJ08ZZ Inspection of Upper Intestinal Tract, Via Natural or Artificial Opening Endoscopic (ICD-10-PCS; CPT 43235; principal; 2020-11-19 11:00)
PROC: 0DJD8ZZ Inspection of Lower Intestinal Tract, Via Natural or Artificial Opening Endoscopic (ICD-10-PCS; CPT 45378; 2020-11-19 11:00)
DX: K62.5 Hemorrhage of anus and rectum (principal); D50.9 Iron deficiency anemia, unspecified; Z92.3 Personal history of irradiation; K22.2 Esophageal obstruction; K44.9 Diaphragmatic hernia without obstruction or gangrene; K29.70 Gastritis, unspecified, without bleeding; K57.30 Diverticulosis of large intestine without perforation or abscess without bleeding; K64.3 Fourth degree hemorrhoids; R18.8 Other ascites; I50.9 Heart failure, unspecified; Z85.05 Personal history of malignant neoplasm of liver; E03.9 Hypothyroidism, unspecified
CPT/HCPCS: 43255; 45384; 76705; 96360; 96361; J2704; J7030

== ENCOUNTER 2020-11-20 07:46 | Outpatient (RCR) | payer MEDICARE, BC, SELFPAY ==
[2020-11-19 09:05] LABS: Basophils % 0.5 %; Eosinophils # 0.2 10^3/uL (0.0-0.8); Eosinophils % 3.5 %; Hematocrit 29.6 % (37.0-47.0); Hemoglobin 9.7 g/dL (11.5-15.3); Lymphocytes # 1.1 10^3/uL (0.8-4.8); Lymphocytes % 17.8 %; Mean Corpuscular HGB Conc 32.8 g/dL (30.0-36.0); Mean Corpuscular Hemoglobin 31.6 pg (28.0-34.0); Mean Corpuscular Volume 96.4 fL (81-99); Monocytes # 0.6 10^3/uL (0.2-0.9); Monocytes % 9.9 %; Neutrophils # 4.24 10^3/uL (1.8-7.7); Nucleated Red Blood Cells % 0 %; Platelet Count 74 10^3/cmm (130-400); Red Blood Count 3.07 10^6/uL (4.1-5.3); Red Cell Distribution Width 17.6 % (12.1-15.1); White Blood Count 6.2 10^3/uL (4.0-10.0)
[2020-11-19 09:12] LABS: INR 1.18 (0.8-1.2)
[2020-11-19 09:23] LABS: Alanine Aminotransferase 42 U/L (0-33); Albumin Level 2.6 g/dL (3.5-5.2); Alkaline Phosphatase 262 IU/L (35-105); Anion Gap 11.9 (5-19); Aspartate Amino Transferase 87 U/L (0-32); Blood Urea Nitrogen 15 mg/dL (8-23); Calcium 7.4 mg/dL (8.5-10.5); Carbon Dioxide 25 mmol/L (22-29); Chloride 104 mmol/L (98-107); Globulin 2.5 g/dL (1.3-4.6); Glucose 118 mg/dL (65-115); Osmolality Calculated 286 mOsm/kg (285-295); Potassium 3.9 mmol/L (3.5-5.1); Sodium 137 mmol/L (136-145); Total Bilirubin 0.9 mg/dL (0.15-1.2); Total Protein 5.1 g/dL (6.6-8.7)
[2020-11-19 10:28] VITALS: BP 145/73; PULSE 71; RESP 18; TEMP 36.7; O2SAT 97
[2020-11-19 10:34] VITALS: BMI 30.9
--- NOTE | 2020-11-19 10:36 | SUR.PREOP ---
patient states her port was accessed this morning at doctor Rafael s office by his nurse.
[2020-11-19 12:56] LABS: Body Fluid Polynuclear #Cells 0.006; Body Fluid WBC 113 /uL; Monocytes # Body Fluid 0.107; RBC, Body Fluid 0 10^3/uL
[2020-11-19 13:53] LABS: Apprearance, Body Fluid CLEAR; Color, Body Fluid COLORLESS
[2020-11-19 13:54] LABS: Albumin Body Fluid 0.5 g/dL; Amylase Body Fluid 6 U/L; Total Protein Body Fluid 0.4 g/dL
--- NOTE | 2020-11-19 14:11 | SUR.PREOP ---
Patient transfered to GI for EGD and colonoscopy.
[2020-11-19 14:14] LABS: Body Fluid Specific Gravity 1.025
[2020-11-20 08:40] LABS: Basophils % 0.5 %; Eosinophils # 0.2 10^3/uL (0.0-0.8); Hemoglobin 9.5 g/dL (11.5-15.3); Lymphocytes # 0.8 10^3/uL (0.8-4.8); Lymphocytes % 13.6 %; Mean Corpuscular HGB Conc 31.7 g/dL (30.0-36.0); Mean Corpuscular Hemoglobin 30.8 pg (28.0-34.0); Mean Corpuscular Volume 97.4 fL (81-99); Mean Platelet Volume 10.7 fL (7.4-10.4); Monocytes # 0.6 10^3/uL (0.2-0.9); Monocytes % 9.8 %; Neutrophils # 4.37 10^3/uL (1.8-7.7); Neutrophils % 72.8 %; Nucleated Red Blood Cells % 0 %; Platelet Count 84 10^3/cmm (130-400); Red Blood Count 3.08 10^6/uL (4.1-5.3); Red Cell Distribution Width 17.3 % (12.1-15.1)
== END 2020-11-23 23:59 | disposition home or self-care (01) ==
LOC: ONCMED 07:46
PROVIDERS: Internal Medicine; PCP Family Medicine; Visit Provider Internal Medicine Medical Oncology
DX: C22.1 Intrahepatic bile duct carcinoma (principal); D62 Acute posthemorrhagic anemia; Z79.899 Other long term (current) drug therapy
CPT/HCPCS: 36415; 36591; 80053; 80500; 82042; 82150; 82945; 83986; 84157; 84315; 85025; 85610; 86850; 86900; 87015; 87070; 87075; 87116; 87205; 87206; 87801; 88112; 88305; 89050

== ENCOUNTER 2020-12-21 08:31 | Outpatient (RCR) | payer MEDICARE, BC, SELFPAY ==
[2020-11-24 09:43] LABS: Basophils # 0.1 10^3/uL (0.0-0.1); Basophils % 0.9 %; Eosinophils # 0.2 10^3/uL (0.0-0.8); Eosinophils % 2.2 %; Hematocrit 24.9 % (37.0-47.0); Hemoglobin 8.1 g/dL (11.5-15.3); Lymphocytes % 14.6 %; Mean Corpuscular HGB Conc 32.5 g/dL (30.0-36.0); Mean Corpuscular Hemoglobin 30.9 pg (28.0-34.0); Mean Platelet Volume 10.8 fL (7.4-10.4); Monocytes # 0.7 10^3/uL (0.2-0.9); Monocytes % 10.8 %; Neutrophils # 4.83 10^3/uL (1.8-7.7); Neutrophils % 71.2 %; Nucleated Red Blood Cells % 0 %; Platelet Count 90 10^3/cmm (130-400); Red Blood Count 2.62 10^6/uL (4.1-5.3); Red Cell Distribution Width 16.5 % (12.1-15.1); White Blood Count 6.8 10^3/uL (4.0-10.0)
[2020-11-24 09:59] LABS: Ammonia 54 umol/L (11-51)
[2020-11-24 10:09] LABS: Alanine Aminotransferase 28 U/L (0-33); Albumin Level 2.2 g/dL (3.5-5.2); Alkaline Phosphatase 245 IU/L (35-105); Anion Gap 13.3 (5-19); Aspartate Amino Transferase 64 U/L (0-32); Blood Urea Nitrogen 18 mg/dL (8-23); Carbon Dioxide 26 mmol/L (22-29); Chloride 98 mmol/L (98-107); Globulin 2.6 g/dL (1.3-4.6); Glucose 127 mg/dL (65-115); Osmolality Calculated 281 mOsm/kg (285-295); Potassium 3.3 mmol/L (3.5-5.1); Sodium 134 mmol/L (136-145); Total Bilirubin 0.8 mg/dL (0.15-1.2); Total Protein 4.8 g/dL (6.6-8.7)
[2020-11-26] MEDS: diphenhydrAMINE 25 mg Capsule PO (08:30)
[2020-11-26] MEDS: acetaminophen 325 mg Tablet 650 MG PO (08:30)
[2020-11-26] MEDS: sodium chloride 0.9% 250 ML 999 ML IV (08:30)
[2020-11-26] MEDS: FUROsemide 10 mg/mL SDV 2mL 20 MG IV (11:55)
[2020-11-26 12:00] VITALS: BP 124/78; PULSE 78; RESP 18; TEMP 36.8; O2SAT 97
[2020-11-27 09:10] LABS: Basophils # 0.1 10^3/uL (0.0-0.1); Basophils % 0.5 %; Eosinophils # 0.1 10^3/uL (0.0-0.8); Eosinophils % 1.5 %; Hematocrit 30.7 % (37.0-47.0); Hemoglobin 10.2 g/dL (11.5-15.3); Lymphocytes # 1.2 10^3/uL (0.8-4.8); Mean Corpuscular HGB Conc 33.2 g/dL (30.0-36.0); Mean Corpuscular Hemoglobin 30.2 pg (28.0-34.0); Mean Corpuscular Volume 90.8 fL (81-99); Mean Platelet Volume 10.5 fL (7.4-10.4); Monocytes # 1.1 10^3/uL (0.2-0.9); Monocytes % 11.7 %; Neutrophils # 7.12 10^3/uL (1.8-7.7); Nucleated Red Blood Cells % 0 %; Platelet Count 96 10^3/cmm (130-400); Red Blood Count 3.38 10^6/uL (4.1-5.3); Red Cell Distribution Width 19.4 % (12.1-15.1); White Blood Count 9.6 10^3/uL (4.0-10.0)
[2020-11-27 09:29] LABS: Alanine Aminotransferase 24 U/L (0-33); Albumin Level 2.2 g/dL (3.5-5.2); Alkaline Phosphatase 226 IU/L (35-105); Anion Gap 13.1 (5-19); Aspartate Amino Transferase 65 U/L (0-32); Blood Urea Nitrogen 18 mg/dL (8-23); Calcium 6.9 mg/dL (8.5-10.5); Carbon Dioxide 26 mmol/L (22-29); Chloride 97 mmol/L (98-107); Globulin 2.9 g/dL (1.3-4.6); Glucose 128 mg/dL (65-115); Osmolality Calculated 280 mOsm/kg (285-295); Potassium 3.1 mmol/L (3.5-5.1); Sodium 133 mmol/L (136-145); Total Bilirubin 0.9 mg/dL (0.15-1.2); Total Protein 5.1 g/dL (6.6-8.7)
[2020-12-01 11:03] LABS: Basophils % 0.5 %; Eosinophils # 0.1 10^3/uL (0.0-0.8); Eosinophils % 1.5 %; Hematocrit 28.5 % (37.0-47.0); Hemoglobin 9.3 g/dL (11.5-15.3); Lymphocytes # 1.3 10^3/uL (0.8-4.8); Lymphocytes % 16.3 %; Mean Corpuscular HGB Conc 32.6 g/dL (30.0-36.0); Mean Corpuscular Hemoglobin 30.8 pg (28.0-34.0); Mean Corpuscular Volume 94.4 fL (81-99); Mean Platelet Volume 9.9 fL (7.4-10.4); Monocytes # 0.8 10^3/uL (0.2-0.9); Monocytes % 10.8 %; Neutrophils # 5.46 10^3/uL (1.8-7.7); Neutrophils % 70.4 %; Nucleated Red Blood Cells % 0 %; Platelet Count 84 10^3/cmm (130-400); Red Blood Count 3.02 10^6/uL (4.1-5.3); Red Cell Distribution Width 18.6 % (12.1-15.1); White Blood Count 7.8 10^3/uL (4.0-10.0)
[2020-12-04] VITALS (9 sets, daily range): BP systolic 110–138; BP diastolic 67–76; PULSE 96–98; RESP 18; TEMP 36.6–37.1; O2SAT 94–97
[2020-12-04 08:49] LABS: Basophils % 0.4 %; Eosinophils # 0.1 10^3/uL (0.0-0.8); Hematocrit 24.5 % (37.0-47.0); Hemoglobin 7.9 g/dL (11.5-15.3); Lymphocytes # 0.9 10^3/uL (0.8-4.8); Lymphocytes % 12.9 %; Mean Corpuscular HGB Conc 32.2 g/dL (30.0-36.0); Mean Corpuscular Volume 93.2 fL (81-99); Mean Platelet Volume 10.8 fL (7.4-10.4); Monocytes # 0.8 10^3/uL (0.2-0.9); Monocytes % 11.4 %; Neutrophils # 5.09 10^3/uL (1.8-7.7); Neutrophils % 73.7 %; Nucleated Red Blood Cells % 0 %; Platelet Count 97 10^3/cmm (130-400); Red Blood Count 2.63 10^6/uL (4.1-5.3); Red Cell Distribution Width 18.3 % (12.1-15.1); White Blood Count 6.9 10^3/uL (4.0-10.0)
[2020-12-04 08:59] LABS: Alanine Aminotransferase 26 U/L (0-33); Albumin Level 2.4 g/dL (3.5-5.2); Alkaline Phosphatase 237 IU/L (35-105); Anion Gap 14.8 (5-19); Aspartate Amino Transferase 71 U/L (0-32); Blood Urea Nitrogen 28 mg/dL (8-23); Calcium 7.5 mg/dL (8.5-10.5); Carbon Dioxide 24 mmol/L (22-29); Chloride 97 mmol/L (98-107); Globulin 2.5 g/dL (1.3-4.6); Glucose 134 mg/dL (65-115); Osmolality Calculated 281 mOsm/kg (285-295); Potassium 3.8 mmol/L (3.5-5.1); Sodium 132 mmol/L (136-145); Total Bilirubin 0.7 mg/dL (0.15-1.2); Total Protein 4.9 g/dL (6.6-8.7)
[2020-12-04 09:02] LABS: Ammonia 41 umol/L (11-51)
[2020-12-04] MEDS: acetaminophen 325 mg Tablet 650 MG PO (11:15)
[2020-12-04] MEDS: diphenhydrAMINE 25 mg Capsule PO (11:15)
[2020-12-04] MEDS: sodium chloride 0.9% 250 ML 999 ML IV (11:15)
[2020-12-04] MEDS: FUROsemide 10 mg/mL SDV 2mL 20 MG IV (13:25)
--- NOTE | 2020-12-04 14:24 | ONC FU_ITS ---
Dr. Hall Patient Follow-Up Note Patient: Lexie Sylvester Unit #: [id number]: 1945 Dicatated By: Gabe Hall M.D.Date of Visit:Dec 04, 2020 Onc Med Follow-up/Prog Note Chief Complaint: Cholangiocarcinoma. 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 She has previously been treated for endometrial cancer and for thyroid cancer. In October 2019 she had presented to the emergency room with jaundice. Her initial CT scan showed an ill-defined inhomogeneous hypodense mass in the left lobe of the liver measuring 5.8 cm. There is mild intrahepatic ductal dilatation. Her ERCP showed no definite filling defects in the bile ducts. Abdominal MRI showed infiltrative mass in the left lobe of the liver measuring 8.1 x 5.5 cm. It was noted to be contiguous with the anterior gallbladder wall. There was marked hepatomegaly with nodular hepatic contour suggesting underlying cirrhosis. There was markedly dilated left sided intrahepatic bile ducts measuring up to 1.1 cm in diameter. Needle biopsy of the liver on 11/20/2019 showed cirrhosis with marked bile ductular proliferation and neutrophilic inflammation. There was no malignancy identified. She had further evaluation at [facility] where she underwent diagnostic laparoscopy with multiple liver biopsies on 12/03/2019. She was noted to have a mass involving segment 4 of the liver in a background of liver cirrhosis. Pathology on the liver mass showed poorly differentiated adenocarcinoma. Pathology on biopsies from the right lobe of the liver showed bridging fibrosis. Overall, the findings were felt to be consistent with cholangiocarcinoma with underlying liver cirrhosis. On 12/09/2019 she had medical oncology consultation with Dr. Jose Luis Lopez, following which she began a course of treatment with cisplatin/gemcitabine. A repeat MRI on 02/17/2020, following completion of 3 cycles of chemotherapy, showed stable disease. She then sought treatment at [facility] in [place], [place]. She subsequently began second line chemotherapy with a modified FOLFOX regimen. During her further follow-up she did require some treatment delays and dose reductions due to cytopenias, but she did show some response to the FOLFOX chemotherapy. Her most recent FOLFOX cycle began on 07/07/2020. She then returned to [facility] where she underwent radiation concurrently with capecitabine for chemosensitization. She completed radiation on 08/26/2020. Total dose was 6000 cGy to the abdomen (liver) administered in 15 fractions and 6000 cGy to an upper pelvic lymph node, also administered in 15 fractions. She returned to see Dr. Lopez on 09/14/2020. At that point she was having fever, cough, and shortness of breath. Her CT pulmonary angiogram showed no evidence of pulmonary thromboembolism. There were scattered patchy infiltrates primarily involving the upper lobes with a peripheral distribution. Similar changes were noted to a lesser extent within the lung bases, right greater than left. There was no associated adenopathy. The findings appeared most compatible with underlying pneumonia. She began on empiric antibiotic coverage with Levaquin. She was seen here initially on 09/25/2020, as she desired to try and received at least some of her follow-up care locally. At that point she still had very marginal performance status, but she was beginning to show some recovery. Subsequent to that visit, she did see Dr. Bermeo for pulmonary consultation. On 10/31/2020 she was admitted to [facility] after presenting to our emergency room with altered mental status. Approximately 1 week earlier she had been diagnosed with bilateral lower extremity deep vein thrombosis, for which she had been started on anticoagulation with apixaban. She was determined to have hepatic encephalopathy in association with acute GI bleeding. Her ammonia level was significantly elevated at 154 ???mol/L. CT of the chest showed no evidence of pulmonary embolism, and there were no acute pulmonary infiltrates. The liver showed findings consistent with cirrhosis. There was no evidence of mass lesions in the liver and there was no evidence of metastatic disease in the abdomen/pelvis. During that hospitalization at [facility] she underwent EGD. She was found to have areas of diffuse oozing from the gastric antral mucosa which were cauterized. Also noted were nonbleeding gastric ulcers. She was taken off apixan, and she underwent placement of an inferior vena cava filter. She was discharged home on a treatment regimen which included lactulose and rifaximin. She also was on Protonix 40 mg twice daily. She was seen her for followup on 11/10/2020. Her hemoglobin was low at 7.5 g. Her ammonia level was mildly elevated at 47 ???mol/L. She was given a PRBC transfusion. Her repeat CBC on 11/13/2020 showed adequate hemoglobin 9.4 g. During that time she also had a stool FIT, which was positive. During subsequent follow-up here she remained transfusion dependent. Her repeat CT abdomen/pelvis on 11/17/2020 showed markedly shrunken liver with nodular surface, consistent with cirrhosis. There was an area of decreased attenuation with some very mild peripheral enhancement involving the medial segment left lobe of the liver measuring 2.6 x 2.2 cm. There was an additional surface area of decreased attenuation along the anterior right lobe of the liver. The appearance was suggestive of possible recurrent neoplasm. There was a large amount of ascites and there was evidence of marked anasarca, but there were peritoneal implants or other evidence of metastatic disease. She then underwent EGD and colonoscopy on 11/19/2020. The colonoscopy showed grade 4 hemorrhoids and there were small patches of mucosal erythema in the transverse colon, felt to be likely secondary to radiation. There is no active bleeding. The EGD showed gastritis involving the entire antrum and pylorus, felt to be likely secondary to radiation. With those findings, she continued medical management and transfusion support. She is seen for a follow-up visit. She is still weak generally, but she is able to walk to the bathroom and she tries to get up and do some walking at least every hour. She continues to have a lot of nausea, and her appetite is not good. She does not have fever or night sweats. She has not had sore throat or difficulty swallowing. She is short of breath at times. She occasionally has pain in the area under her left breast. She otherwise does not have chest pain. She is not having acid reflux symptoms. She has been taking lactulose four times a day for the hepatic failure. Her stools lately have been a little more firm and they have been more brown than black. Bladder function remains adequate, though she has not had as much urine output lately. She has no significant joint or bone pain. She does not complain of headache. She has some mild orthostatic lightheadedness. She has neuropathy in her hands, but that is unchanged. Medications: [place] Thyroid 1 (120 mg) Tablet Oral daily, B Complex 50 1 Tablet Oral daily, [facility] Fish Oil 1 Capsule (of 1000 mg) Oral daily, Docusate Sodium 1 Tablet (of 100 mg) Oral b.i.d. PRN, Furosemide 1 Tablet (of 40 mg) Oral daily, HYDROcodone-Acetaminophen 1 Tablet (of 5-325 mg) Oral four times a day PRN, K-Tab 1 (20 meq) Tablet, controlled release Oral b.i.d., Lactulose 30 mL (of 10 g/15mL) Solution Oral q 6 hours PRN, Mometasone Furoate 1 Applicator (of 0.1 %) Cream Topical daily PRN, Pantoprazole Sodium 1 Tablet (of 40 mg) Tablet, enteric coated Oral daily, Xifaxan 1 Tablet (of 550 mg) Oral b.i.d. Allergies: oxyCODONE HCl and traMADol HCl. Vital Signs: Performed on Dec 04, 2020 09:40 Height - 180.00 in Temperature - 98.3 F (LOW) Pulse - 98 /min Respiration - 18 /min BP - 104/68 mm(hg) O2 Sat - 96 % Pain - 0 Physical Examination: Constitutional - She appears weak generally, but somewhat better, Eyes - Sclerae nonicteric. Conjunctivae clear, ENMT - No lesions noted in the oral cavity, Hematologic/Lymphatic - No cervical, clavicular, or axillary adenopathy, Respiratory - Lungs sound clear, Cardiovascular - Heart rhythm is irregular. There is a II/ systolic murmur. There is no gallop or rub noted, Abdomen - Mildly distended but soft. Liver does not appear enlarged. Spleen is not palpable. There is no abdominal mass noted. She appears to have some ascites. There is no inguinal adenopathy noted, Extremities - Mild edema, Neurologic - No focal neurologic deficits noted. Lab/Imaging: Test performed on Dec 04, 2020 08:25 Ammonia 41 umol/L Sodium 132 mmol/L Potassium 3.8 mmol/L Chloride 97 mmol/L CO2 24 mmol/L Anion Gap 14.8 BUN 28 mg/dL Creatinine 1.0 mg/dL Cr Clearance (Est) 76.0600 mL/min Glucose 134 mg/dL Osmolality - Calculated 281 mOsm/kg Calcium 7.5 mg/dL Protein, Total 4.9 g/dL Albumin 2.4 g/dL Globulin 2.5 g/dL Bilirubin, Total 0.7 mg/dL ALT (SGPT) 26 U/L AST (SGOT) 71 U/L Alkaline Phosphatase 237 IU/L Leukocyte Reduced RBC [id number] OP RCLR XM COMPATIBLE WBC 6.9 10 3/uL RBC 2.63 10 6/uL HGB 7.9 g/dL HCT 24.5 % MCV 93.2 fL MCH 30.0 pg MCHC 32.2 g/dL RDW 18.3 % Platelet Count 97 10 3/cmm MPV 10.8 fL Neutrophils 5.09 10 3/uL Lymphocytes 0.9 10 3/uL Monocytes 0.8 10 3/uL Eosinophils 0.1 10 3/uL Basophils 0.0 10 3/uL Neutrophil % 73.7 % Lymphocyte % 12.9 % Monocyte % 11.4 % Eosinophil % 1.0 % Basophils % 0.4 % NRBC % 0 % Anti-D Positive / 4+ Blood Type OP Antibody Screen (Gel) NEGATIVE Problem List: 1. Intrahepatic cholangiocarcinoma, stage IV, initially diagnosed in November 2019. 2. There was evidence of underlying liver cirrhosis by MRI and by liver biopsy. 3. She was diagnosed with bilateral lower extremity deep vein thrombosis in October 2020. 4. She underwent total thyroidectomy and radioactive iodine ablation for thyroid cancer in 2010. She has subsequent hypothyroidism. 5. She had previous hysterectomy/bilateral salpingo-oophorectomy for endometrial cancer. 6. She has history of valvular heart disease for which she underwent bioprosthetic aortic valve replacement in 2013. Problems Addressed with this Encounter and Plan: 1. Patient with intrahepatic cholangiocarcinoma, stage IV, initially diagnosed in November 2019. She had treatment with cisplatin/gemcitabine chemotherapy from November through January 2020 with a follow-up MRI showing stable disease. On 02/25/2020 she began second line chemotherapy with modified FOLFOX. During subsequent followup she required dose reductions and treatment delays for cytopenias, but she did show evidence of response. Her most recent chemotherapy cycle began on 07/07/2020. She then underwent radiation concurrently with capecitabine chemotherapy at [facility] from 08/03/2020 through 08/26/2020, total dose 6000 cGy to the abdomen (liver) administered in 15 fractions and 6000 cGy to an upper pelvic lymph node, also administered in 15 fractions. During subsequent follow-up she had persistent fever and she had very marginal performance status. Her CT scans of the chest, abdomen, and pelvis on 10/31/2020 showed no evidence of residual, recurrent, or metastatic disease. Her repeat CT abdomen/pelvis on 11/17/2020 did show a hypoechoic mass with minimal peripheral enhancement in the medial segment left lower lobe, suggestive of possible recurrent neoplasm. There was an additional low-attenuation nodule along the anterior surface of the right lobe of the liver. There was no obvious metastatic disease. Thus far she has had no further treatment. For now she will continue expectant management. She obviously will require ongoing surveillance. 2. She was found to have underlying cirrhosis by MRI and by liver biopsy. She now has evidence of associated hepatic encephalopathy. She is currently on management with lactulose and rifaximin. 3. She was diagnosed with bilateral lower extremity deep vein thrombosis in October 2020. She initially began on anticoagulation with apixaban. It was stopped as of 10/31/2020 when she was hospitalized with hepatic encephalopathy in association with acute GI bleeding. She underwent placement of inferior vena cava filter during that hospitalization. We have been notified that the inferior vena cava filter is due to be removed in 1 month. 4. 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 By EGD, it appears to be due to gastritis secondary to her radiation. She continues on medical management for the gastritis, and I will continue to transfuse her as needed. 5. She has very marginal performance status and she has very limited resources for assistance at home, as her is also not in good health and they have no other family members in the area. Her situation is further complicated by the fact that they care for a son who is incapacitated due to autism. She does qualify for homebound status, and I will put in a request for home health services. I also will check and see what other assistance may be available for them. Signed By: Gabe Hall M.D. <<Signature on File>>
--- NOTE | 2020-12-07 08:14 | PC.NURSE ---
This Nurse Verified this unit of blood for patient on 12/04/20 at 1345: Lexie Sylvester 47. UNIT# [id number], O POS, ANTIB NEG, Wristband [id number],Leukocyte reduced RBC, Crossmatch comp, Exp. 12/31/20. Pt verification ubnable to be documented in TAR, due to out of time. Blood was kept in cooler in ONC prior to use. No abnormalities within blood. Blood was administered within 20 minutes of being out of cooler. Blood was infused prior to 4 hours. No infusion reactions from patient. Yomi TERRY ([facility]) .
[2020-12-08 09:52] LABS: Basophils # 0.1 10^3/uL (0.0-0.1); Basophils % 0.8 %; Eosinophils # 0.1 10^3/uL (0.0-0.8); Eosinophils % 1.5 %; Hemoglobin 9.8 g/dL (11.5-15.3); Lymphocytes % 13.1 %; Mean Corpuscular HGB Conc 32.7 g/dL (30.0-36.0); Mean Corpuscular Hemoglobin 29.7 pg (28.0-34.0); Mean Corpuscular Volume 90.9 fL (81-99); Mean Platelet Volume 10.1 fL (7.4-10.4); Monocytes # 0.9 10^3/uL (0.2-0.9); Neutrophils # 5.74 10^3/uL (1.8-7.7); Neutrophils % 73.2 %; Nucleated Red Blood Cells % 0 %; Platelet Count 108 10^3/cmm (130-400); Red Cell Distribution Width 17.3 % (12.1-15.1); White Blood Count 7.8 10^3/uL (4.0-10.0)
[2020-12-10 09:07] LABS: Basophils % 0.6 %; Eosinophils # 0.1 10^3/uL (0.0-0.8); Eosinophils % 1.5 %; Hematocrit 26.1 % (37.0-47.0); Hemoglobin 8.6 g/dL (11.5-15.3); Lymphocytes # 0.9 10^3/uL (0.8-4.8); Lymphocytes % 13.2 %; Mean Corpuscular Volume 90.9 fL (81-99); Mean Platelet Volume 10.2 fL (7.4-10.4); Monocytes # 0.8 10^3/uL (0.2-0.9); Monocytes % 11.6 %; Neutrophils # 4.88 10^3/uL (1.8-7.7); Neutrophils % 72.7 %; Nucleated Red Blood Cells % 0 %; Platelet Count 96 10^3/cmm (130-400); Red Blood Count 2.87 10^6/uL (4.1-5.3); Red Cell Distribution Width 17.2 % (12.1-15.1); White Blood Count 6.7 10^3/uL (4.0-10.0)
[2020-12-14 09:29] LABS: Basophils # 0.1 10^3/uL (0.0-0.1); Basophils % 0.7 %; Eosinophils # 0.1 10^3/uL (0.0-0.8); Eosinophils % 1.1 %; Hematocrit 25.8 % (37.0-47.0); Hemoglobin 8.3 g/dL (11.5-15.3); Lymphocytes # 1.1 10^3/uL (0.8-4.8); Lymphocytes % 14.9 %; Mean Corpuscular HGB Conc 32.2 g/dL (30.0-36.0); Mean Corpuscular Hemoglobin 29.6 pg (28.0-34.0); Mean Corpuscular Volume 92.1 fL (81-99); Mean Platelet Volume 10.6 fL (7.4-10.4); Monocytes % 13.2 %; Neutrophils # 5.03 10^3/uL (1.8-7.7); Neutrophils % 68.9 %; Nucleated Red Blood Cells % 0 %; Platelet Count 131 10^3/cmm (130-400); Red Cell Distribution Width 17.3 % (12.1-15.1); White Blood Count 7.3 10^3/uL (4.0-10.0)
--- NOTE | 2020-12-14 10:25 | US_ITS ---
WS: [id number] Abdominal ultrasound, limited. History: Evaluate for ascites. Comparison: 11/19/2020 All 4 quadrants are imaged by ultrasound to evaluate for ascites. Moderate to large amount of ascites in all 4 quadrants. The ascites has actually improved since 11/19/2020. Surface of the liver is irregular suggestive of cirrhosis. US/US abdomen lmt fluid [id number] IMPRESSION: Moderate ascites with mild improvement since 11/19/2020.
[2020-12-14] MEDS: acetaminophen 325 mg Tablet PO (12:45)
[2020-12-14] MEDS: diphenhydrAMINE 25 mg Capsule PO (12:45)
[2020-12-14] MEDS: sodium chloride 0.9% 250 ML 999 ML IV (12:45)
[2020-12-17 09:20] LABS: Basophils % 0.5 %; Eosinophils # 0.1 10^3/uL (0.0-0.8); Eosinophils % 1.8 %; Hematocrit 24.7 % (37.0-47.0); Hemoglobin 7.9 g/dL (11.5-15.3); Lymphocytes # 0.9 10^3/uL (0.8-4.8); Lymphocytes % 13.5 %; Mean Corpuscular Volume 90.8 fL (81-99); Mean Platelet Volume 10.3 fL (7.4-10.4); Neutrophils # 4.59 10^3/uL (1.8-7.7); Neutrophils % 68.9 %; Nucleated Red Blood Cells % 0 %; Platelet Count 115 10^3/cmm (130-400); Red Blood Count 2.72 10^6/uL (4.1-5.3); Red Cell Distribution Width 17.7 % (12.1-15.1); White Blood Count 6.7 10^3/uL (4.0-10.0)
[2020-12-17 09:30] LABS: Ammonia 45 umol/L (11-51)
[2020-12-17 09:46] LABS: Alanine Aminotransferase 29 U/L (0-33); Albumin Level 2.2 g/dL (3.5-5.2); Alkaline Phosphatase 217 IU/L (35-105); Anion Gap 11.8 (5-19); Aspartate Amino Transferase 74 U/L (0-32); Blood Urea Nitrogen 30 mg/dL (8-23); Carbon Dioxide 26 mmol/L (22-29); Chloride 98 mmol/L (98-107); Globulin 2.5 g/dL (1.3-4.6); Glucose 193 mg/dL (65-115); Osmolality Calculated 285 mOsm/kg (285-295); Potassium 3.8 mmol/L (3.5-5.1); Sodium 132 mmol/L (136-145); Thyroid Stimulating Hormone 12.82 uIU/mL (0.27-4.20); Total Bilirubin 0.7 mg/dL (0.15-1.2); Total Protein 4.7 g/dL (6.6-8.7)
[2020-12-17] MEDS: sodium chloride 0.9% 250 ML 999 ML IV (12:00)
[2020-12-17] MEDS: diphenhydrAMINE 25 mg Capsule PO (12:00)
[2020-12-17] MEDS: acetaminophen 325 mg Tablet PO (12:03)
[2020-12-17] MEDS: FUROsemide 10 mg/mL SDV 2mL 20 MG IV (15:24)
[2020-12-17 17:10] VITALS: BP 130/54; PULSE 88; RESP 18; TEMP 36.6; O2SAT 98
[2020-12-21 09:05] LABS: Basophils % 0.6 %; Eosinophils # 0.1 10^3/uL (0.0-0.8); Eosinophils % 1.5 %; Hematocrit 28.6 % (37.0-47.0); Hemoglobin 9.1 g/dL (11.5-15.3); Lymphocytes # 1.1 10^3/uL (0.8-4.8); Lymphocytes % 16.2 %; Mean Corpuscular HGB Conc 31.8 g/dL (30.0-36.0); Mean Corpuscular Volume 91.1 fL (81-99); Mean Platelet Volume 9.8 fL (7.4-10.4); Monocytes % 14.7 %; Neutrophils # 4.47 10^3/uL (1.8-7.7); Neutrophils % 66.6 %; Nucleated Red Blood Cells % 0 %; Platelet Count 99 10^3/cmm (130-400); Red Blood Count 3.14 10^6/uL (4.1-5.3); Red Cell Distribution Width 17.1 % (12.1-15.1); White Blood Count 6.7 10^3/uL (4.0-10.0)
== END 2020-12-23 23:59 | disposition home or self-care (01) ==
LOC: ONCMED 08:31
PROVIDERS: Nurse Practitioner; PCP Family Medicine; Visit Provider Internal Medicine Medical Oncology
DX: C22.1 Intrahepatic bile duct carcinoma (principal); D62 Acute posthemorrhagic anemia; K74.69 Other cirrhosis of liver; K72.10 Chronic hepatic failure without coma; I82.403 Acute embolism and thrombosis of unspecified deep veins of lower extremity, bilateral; E03.9 Hypothyroidism, unspecified; Z95.2 Presence of prosthetic heart valve; Z90.722 Acquired absence of ovaries, bilateral; Z79.899 Other long term (current) drug therapy; Z92.3 Personal history of irradiation; Z92.21 Personal history of antineoplastic chemotherapy
CPT/HCPCS: 36415; 36430; 36591; 76705; 80053; 82140; 84443; 85025; 86850; 86900; 86920; 99215; J1940; J7050; P9016

== ENCOUNTER 2020-12-24 16:46 | Outpatient (RCR) | payer MEDICARE, BC, SELFPAY ==
[2020-12-24 17:43] LABS: Basophils % 0.4 %; Eosinophils % 0.1 %; Hematocrit 22.9 % (37.0-47.0); Hemoglobin 7.1 g/dL (11.5-15.3); Lymphocytes # 0.8 10^3/uL (0.8-4.8); Lymphocytes % 9.8 %; Mean Corpuscular Hemoglobin 29.2 pg (28.0-34.0); Mean Corpuscular Volume 94.2 fL (81-99); Mean Platelet Volume 10.4 fL (7.4-10.4); Monocytes # 0.9 10^3/uL (0.2-0.9); Monocytes % 11.2 %; Neutrophils % 78.1 %; Nucleated Red Blood Cells % 0 %; Platelet Count 123 10^3/cmm (130-400); Red Blood Count 2.43 10^6/uL (4.1-5.3); Red Cell Distribution Width 17.8 % (12.1-15.1); White Blood Count 7.9 10^3/uL (4.0-10.0)
== END 2020-12-24 17:00 | disposition home or self-care (01) ==
LOC: ONCMED 16:46
PROVIDERS: PCP Family Medicine; Visit Provider Internal Medicine Medical Oncology
DX: K62.5 Hemorrhage of anus and rectum (principal)
CPT/HCPCS: 36415; 85025

== ENCOUNTER 2020-12-24 17:18 | Inpatient (IN) | payer MEDICARE, BC, SELFPAY ==
[2020-12-24] VITALS (7 sets, daily range): BP systolic 99–124; BP diastolic 54–71; PULSE 89–100; RESP 18; TEMP 36.4–36.6; O2SAT 92–98; BMI 31.7
--- NOTE | 2020-12-24 18:17 | W.ED.GIBLEED ---
HPI - GI Bleed General: Chief complaint: GI Bleed Stated complaint: active rectal bleeding, had surgery this morning Time Seen by Provider: 12/24/20 18:04 Source: patient Mode of arrival: ambulatory Limitations: no limitations History of Present Illness: HPI Narrative: 75-year-old female with a history of liver cancer who just finished chemo little over a month ago. She has been having GI bleed since then has had to have transfusions. States that today she went to the bathroom had a large amount of bright red blood in her stool. She had her blood drawn it was at 7 1. States she is been feeling very weak as well. Denies any worsening improving factors. Associated symptoms: Denies chills, easy bruising, fever(s), headache(s) or rash Review of Systems Const: Denies: fever(s), chills, body aches or change in appetite Eyes: Denies: blurry vision or eye discomfort ENMT: Denies: throat pain or dental pain Card: Denies: chest pain Resp: Denies: dyspnea GI: Reports: hematochezia : Denies: dysuria Musc: Denies: neck pain or back pain Skin/Breast: Denies: rash Neuro: Denies: headache(s) Psych: Denies: depression Александр/Lymph: Denies: easy bruising All/Imm: Denies: urticaria PFSH ED PFSH: Medical History Anemia Cholangiocarcinoma Endometrial cancer Hypothyroid Liver cirrhosis Pneumonia Rotator cuff arthropathy Thyroid cancer Uterine cancer Valvular heart disease Surgical History H/O esophagogastroduodenoscopy (11/19/20) H/O laparoscopy H/O lumpectomy History of hysterectomy History of liver biopsy History of salpingo-oophorectomy History of thyroidectomy, total Hx of cataract surgery Hx of tonsillectomy S/P AVR (aortic valve replacement) Status post colonoscopy (11/19/20) Family History Father Cancer Lung Cancer Brother CAD (coronary artery disease) Social History Smoking and tobacco status: never smoked Second hand smoke exposure: No Smoking risk assessment/counseling performed?: No Alcohol intake: never Counseling given: No Counseling given: No Lives independently: Yes Household members: spouse Marital status: Current gender identity: Female Physical Exam Const: COMMON NORMALS: patient oriented x3 and healthy appearing GENERAL APPEARANCE: ill appearing HENMT: COMMON NORMALS: normocephalic and atraumatic HEAD & SCALP: normocephalic and atraumatic Eye: COMMON NORMALS: Equal, round and reactive pupils present and EOMs intact bilaterally PUPIL: Yes Equal, round and reactive pupils present Neck/C-Spine: COMMON NORMALS: full ROM and supple Chest: COMMONS NORMALS: normal inspection of the chest and normal palpation of entire chest wall Resp: COMMON NORMALS: normal respiratory effort, No retractions, No use of accessory muscles and clear to auscultation bilaterally AUSCULTATION: clear to auscultation bilaterally Cardio: COMMON NORMALS: regular rate, regular rhythm and No murmurs present (Cardio) RATE: regular rate RHYTHM: regular rhythm GI: COMMON NORMALS: Normal to inspection, nondistended, normoactive bowel sounds present, Soft to palpation, non-tender and no masses PALPATION: Yes Soft to palpation Extremity: COMMON NORMALS: normal to inspection and full ROM Neuro: COMMON NORMALS: patient oriented x3, moves all extremities and no focal motor deficits Psych: COMMON NORMALS: mental status grossly normal, Normal thought process present and cooperative THOUGHT PROCESS: Normal thought process present Skin: COMMON NORMALS: no rashes or lesions noted and no wounds NARRATIVE SKIN EXAM: skin is pale GENERAL SKIN EXAM: no rashes or lesions noted Course Vital Signs: Vital signs: Vital Signs Temperature 97.6 F 12/24/20 17:48 Pulse Rate 97 12/24/20 19:46 Respiratory Rate 18 12/24/20 19:46 Blood Pressure 99/54 12/24/20 19:46 Pulse Oximetry 96 12/24/20 19:46 MDM - GI Bleed MDM Narrative: Medical decision making narrative: Patient presents with a GI bleed. Patient had blood drawn and she is anemic. Her bleeding is slowed but will admit to monitor her hemoglobin and patient transfused 2 units. Lab Data: Labs: Lab Results 12/24/20 Range/Units 17:06 Blood Type O Positive Rho(D) Type Positive / 4+ Antibody Screen Negative Crossmatch See Detail Discharge Plan Discharge Patient Disposition: Admitted As Inpatient Admit Provider: Bharati Brown Clinical Impression: Anemia, Lower gastrointestinal hemorrhage Condition: Stable Coding Level of Care Code ED [employer] Mk1 Operator for Chg Fwd Exam Comprehensive
--- NOTE | 2020-12-24 20:11 | P.HP_ITS ---
Providers/Chief Complaint Primary Care Provider: Phil Cisneros MD Chief Complaint: active rectal bleeding, had surgery this morning History of Present Illness Lexie Sylvestre is a 75 year old female with history of stage IV cholang iocarcinoma,, history of liver cirrhosis, lower extremity DVT initially was put on Eliquis now status post IVC filter placement, thyroid cancer status post thyroidectomy with subsequent hypothyroidism, history of endometrial cancer status post hysterectomy BSO, bioprosthetic aortic valve replacement 2013 presented today with chief complaint of bright bleed per rectum. 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 Patient is stating that her last chemotherapy session was in October and since then she has been noticing dark-colored stools but in last 48 hours this has changed and she noticed bright bleed per rectum. Today he noticed a large chunk of blood in toilet bowl and decided to come to the hospital for further evaluation. Of note, she was at [facility] for removal of IVC filter today the morning. She called her oncologist who coordinated her care with Dr. Hall and recommended her to go to the nearest ER for blood.. Today her hemoglobin at [facility] was 7.2. She was not given any blood transfusion. She is denying syncopal events, chest pain, shortness of breath but endorsing fatigue, lethargy and loose stool today. No active abdominal pain, nausea or vomiting Diagnosis in the ER revealed hemoglobin 7.1, systolic blood pressure 123 mmHg, she was awake and alert, family at the bedside, 2 units PRBC requested, leukoreduced Review of Systems Const: Reports: body aches and fatigue; Denies: fever(s) or chills Eyes: Denies: change in vision ENMT: Denies: throat pain Card: Denies: chest pain Resp: Denies: dyspnea GI: Reports: hematochezia and melena; Denies: abdominal pain : Denies: flank pain Musc: Denies: neck pain Skin/Breast: Denies: rash Neuro: Denies: headache(s) Psych: Denies: anxiety Endo: Denies: polyuria Александр/Lymph: Denies: easy bruising All/Imm: Denies: urticaria Medications/Allergies Home Medications Medication Instructions Recorded Confirmed Last Taken Type ergocalciferol (vitamin D2) 50,000 unit PO Q7D 10/31/20 12/24/20 12/21/20 History furosemide 80 mg PO DAILY@0700 10/31/20 12/24/20 12/23/20 History ondansetron 8 mg PO Q8H PRN 10/31/20 12/24/20 Unknown History pantoprazole 40 mg PO DAILY@0700 10/31/20 12/24/20 12/23/20 History Xifaxan 550 mg PO BID@0700,1900 11/18/20 12/24/20 12/23/20 History Vitamin B-6 1 tab PO DAILY@0700 12/24/20 12/24/20 12/23/20 History lactulose See Rx Instructions .ROUTE .COMPLEX 12/24/20 12/24/20 12/23/20 History omeprazole 40 mg PO DAILY@0700 12/24/20 12/24/20 12/23/20 History potassium chloride 20 meq PO DAILY@0700 12/24/20 12/24/20 12/23/20 History thyroid (pork) [[place] Thyroid] 180 mg PO DAILY@0700 12/24/20 12/24/20 12/23/20 History Allergies Allergy/AdvReac Type Severity Reaction Status Date / Time oxycodone Allergy ADR-Nausea Verified 12/15/20 14:55 tramadol Allergy ADR-Nausea Verified 12/15/20 14:55 PFSH Acute PFSH: Medical History Anemia Cholangiocarcinoma Endometrial cancer Hypothyroid Liver cirrhosis Pneumonia Rotator cuff arthropathy Thyroid cancer Uterine cancer Valvular heart disease Surgical History H/O esophagogastroduodenoscopy (11/19/20) H/O laparoscopy H/O lumpectomy History of hysterectomy History of liver biopsy History of salpingo-oophorectomy History of thyroidectomy, total Hx of cataract surgery Hx of tonsillectomy S/P AVR (aortic valve replacement) Status post colonoscopy (11/19/20) Family History Father Cancer Lung Cancer Brother CAD (coronary artery disease) Social History Smoking and tobacco status: never smoked Second hand smoke exposure: No Smoking risk assessment/counseling performed?: No Alcohol intake: never Counseling given: No Counseling given: No Lives independently: Yes Household members: spouse Marital status: Current gender identity: Female Vitals/I&O/Wt Last Vital Signs Temp 97.6 F 12/24/20 17:48 Pulse 97 12/24/20 19:46 Resp 18 12/24/20 19:46 BP 99/54 12/24/20 19:46 Pulse Ox 96 12/24/20 19:46 Weight last 48 hrs Weight 97.522 kg Physical Exam Narrative: EXAM NARRATIVE: Very cooperative and pleasant elderly female Laying in her bed without any active discomfort S1, S2, loud S2 sinus rhythm systolic blood pressure 123 mmHg No active abdominal pain or signs of peritonitis, Bilateral breath sounds without adventitious rhonchi or crackles EOMI, PERRLA GCS 15 Awake alert oriented x3 Appropriate mood and affect No joint swelling No sign of cellulitis Clinically does look dehydrated with dry mucous membranes A&P Assessment and plan (1) Hematochezia: Status: Acute (2) Anemia: Status: Acute Additional A&P Information Bright bleed per rectum/hematochezia Hemoglobin 7.1 Systolic blood pressure 122/70 mmHg No abdominal pain Protonix 40 IV twice daily, n.p.o. 2 units PRBC leukoreduced Previous history of gastric ulcer bleeding status post cauterization Transfusion dependent anemia She will need EGD in the morning Notified and consulted Dr. Billy Her IVC filter was removed today, no abdominal pain or signs of hematoma, apparently her hemoglobin was 7.2 which was tested at [facility] however she was not given any blood transfusion before removal of IVC filter Full code DVT prophylaxis contraindicated would use SCDs N.p.o. Attestations Medical Necessity Statement*: Anticipating stay in the hospital greater than 2 midnights will need EGD for GI bleed Time Spent in Patient Care: (>than 50% of time spent in counselling and/or direct pt care on unit) . 30mins Coding Level of Care Code Acute Veterinary Milk Specialist for [facility] Fwd Diagnoses Hematochezia K92.1 Anemia D64.9
--- NOTE | 2020-12-24 20:53 | PC.NURSE ---
report to Melissa TORRES
--- NOTE | 2020-12-24 22:59 | PC.NURSE ---
ADMIT Pt was received from ER. Reports has been having bright red blood from her bowels. Has history of chemo & radiation txs. First unit of PRBC's has been started by RN. Consent was signed. Pt denies pain or discomfort. Daughter at bedside
[2020-12-25] VITALS (17 sets, daily range): BP systolic 103–127; BP diastolic 58–76; PULSE 78–91; RESP 16–18; TEMP 36.4–36.7; O2SAT 91–97
[2020-12-25] MEDS: pantoprazole 40 mg SDV IVP ×3 (01:46→23:17)
[2020-12-25] MEDS: sodium chloride 0.9% (100 ml) 100 ML 125 ML ×2 (01:58→01:59)
--- NOTE | 2020-12-25 02:07 | PC.NURSE ---
TRANSFUSION Second unit of PRBC's now infusing. Flower first well. Is pleasant and talkative.
--- NOTE | 2020-12-25 05:09 | PC.NURSE ---
ROUNDING Just finished with second unit of PRBC's. Tolerated transfusion well. Incont of urine. No BM's since admission. Daughter remains at bedside. NPO except ice chips and sips.
[2020-12-25 06:35] LABS: Basophils % 0.4 %; Eosinophils # 0.1 10^3/uL (0.0-0.8); Eosinophils % 1.1 %; Hematocrit 25.4 % (37.0-47.0); Hemoglobin 8.3 g/dL (11.5-15.3); Lymphocytes # 1.1 10^3/uL (0.8-4.8); Mean Corpuscular HGB Conc 32.7 g/dL (30.0-36.0); Mean Corpuscular Hemoglobin 29.6 pg (28.0-34.0); Mean Corpuscular Volume 90.7 fL (81-99); Mean Platelet Volume 10.6 fL (7.4-10.4); Monocytes % 13.4 %; Neutrophils # 5.07 10^3/uL (1.8-7.7); Neutrophils % 69.4 %; Nucleated Red Blood Cells % 0 %; Platelet Count 92 10^3/cmm (130-400); Red Cell Distribution Width 15.9 % (12.1-15.1); White Blood Count 7.3 10^3/uL (4.0-10.0)
[2020-12-25 06:50] LABS: Anion Gap 12.1 (5-19); Blood Urea Nitrogen 40 mg/dL (8-23); Calcium 7.5 mg/dL (8.5-10.5); Carbon Dioxide 28 mmol/L (22-29); Chloride 97 mmol/L (98-107); Glucose 130 mg/dL (65-115); Osmolality Calculated 288 mOsm/kg (285-295); Potassium 4.1 mmol/L (3.5-5.1); Sodium 133 mmol/L (136-145)
[2020-12-25] MEDS: folic acid 1 mg Tablet PO (09:29)
[2020-12-25] MEDS: cyanocobalamin 1,000 mcg Tablet 1000 MCG PO (09:29)
[2020-12-25] MEDS: sucralfate 1 gm/10 mL Oral Liq UDC PO ×3 (10:20→22:13)
[2020-12-25] MEDS: lactulose oral liq 20 gm/30 mL UDC PO ×3 (10:20→22:13)
[2020-12-25 10:37] LABS: Hematocrit 25.3 % (37.0-47.0); Hemoglobin 8.5 g/dL (11.5-15.3)
--- NOTE | 2020-12-25 11:51 | PC.CHAP ---
Pastoral Care Encounter/Spiritual Assessment Type of Contact [] Declined retail cosmetics sales beauty advisor visit [] Patient/Family/Request visit [] Outpatient visit [] Follow-up visit [] Physician referral [] Code/Alert [xx] Routine visit [] Staff referral [] Actively dying [] Patient sleeping [] Family support [] [] Out of room [] Palliative care [] [] Receiving care in room [] Pre-surgical visit [] Trauma [] Long length of stay [] ICU visit [] Other: Relational/Emotional Strength [xx] Patient feels connected with others/family/visitors/staff [] Distress [] Loneliness/isolation [] Abandonment Spirituality of Patient [xx] Person of [place] [xx] Attends Catholic of their [place] [xx] Believes in Prayer [xx] Reads Bible or Church materials [] There are Spiritual issues to be addressed Employment Interviewer Interventions [xx] Prayer [xx] Active listening [xx] Non-anxious presence [] Spiritual/emotional support [] Crisis/trauma care [] Spiritual counseling [] Bereavement support [] Provided bereavement packet [] Provided Bible/devotional materials [] Provided toy/stuffed animal, coloring book to patient or family member [] Provided Communion [] Anointing/[place] [] Salvation [xx] Completed spiritual assessment [] Other: Impact on Illness or Injury [] Angry [] Fearful [] Anxious [] Often cries [] Exhaustion [] Unable to work [] Unable to attend moravian [] Unable to walk/stand [] Unable to read [] Unable to drive [] Unable to eat/drink [] Unable to sleep [] Unable to be with family [] Patient intubated [] Other: Summary Patient's daughter, Noelle, present visiting her mother. Patient and daughter were pleasant and talkative. Patient feeling somewhat better Time spent with patient 7 minutes
--- NOTE | 2020-12-25 13:25 | P.PN_ITS ---
Subjective Subjective: Interval history: Patient was seen this morning, her daughters at bedside, she tells me that she had one episode of bloody bowel this morning, recently had an EGD and colonoscopy by Dr. Billy, with findings of Schatzki's ring, gastritis, with hemorrhoids, diverticulosis. Currently she tells me that she really wants to get up out of bed, she does not want to lay around, she recently had her IVC filter removed, and she does not want to develop a blood clot Vitals/I&O/Wt Last Vital Signs Temp 97.7 F 12/25/20 07:58 Pulse 80 12/25/20 10:34 Resp 16 12/25/20 07:58 BP 110/62 12/25/20 07:58 Pulse Ox 94 12/25/20 10:34 12/24/20 12/25/20 12/25/20 22:59 06:59 14:59 Intake Total 0 / 0 900 / 900 Balance 0 / 0 900 / 900 Weight last 48 hrs Weight 97.522 kg Physical Exam Const: COMMON NORMALS: no acute distress and patient oriented x3 Chest: OTHER: chest port in place Resp: COMMON NORMALS: normal respiratory effort, No retractions, No use of accessory muscles and clear to auscultation bilaterally AUSCULTATION: clear to auscultation bilaterally Cardio: COMMON NORMALS: regular rate, regular rhythm, S1 normal heart sound present and S2 normal heart sound present RATE: regular rate RHYTHM: regular rhythm HEART SOUNDS: S1 normal heart sound present and S2 normal heart sound present GI: COMMON NORMALS: Normal to inspection, nondistended, normoactive bowel sounds present, Soft to palpation and non-tender PALPATION: Yes Soft to palpation Extremity: COMMON NORMALS: no pedal edema Neuro: COMMON NORMALS: patient oriented x3 Data : 12/25/20 10:30 12/25/20 06:25 A&P Assessment and plan (1) Hematochezia: Status: Acute (2) Anemia: Status: Acute Additional A&P Information Bright bleed per rectum/hematochezia Hemoglobin 8.5 Check hemoglobin every 4 hours, monitor hemodynamics closely Hold IV fluids due to concerns for fluid overload, mild bilateral extremity edema recently had an EGD and colonoscopy with finding of Schatzki's ring, gastritis, diverticulosis, with hemorrhoids Platelet count 92,000, INR pending blood pressure 110/62, no abdominal pain Protonix 40 IV twice daily, Carafate, n.p.o. Status post 2 units PRBC leukoreduced Previous history of gastric ulcer bleeding status post cauterization Transfusion dependent anemia She will need EGD in the morning Notified and consulted Dr. Billy Her IVC filter was removed today, no abdominal pain or signs of hematoma, ultrasound of bilateral lower extremities was performed and did not show DVT, apparently her hemoglobin was 7.2 which was tested at [facility] however she was not given any blood transfusion before removal of IVC filter History of cholangiocarcinoma, status post chemoradiation, followed through [facility], next follow-up in January History of bilateral lower extremity DVTs, initially on anticoagulation, stopped due to GI bleed, with IVC filter placement, now subsequent removal Has transfusion dependent anemia, second ongoing GI blood loss, thought to be secondary to gastritis secondary to radiation therapy History of liver cirrhosis, by liver biopsy and MRI, with hepatic encephalopathy, on lactulose and rifaximin Full code DVT prophylaxis contraindicated would use SCDs N.p.o. Attestations Medical Necessity Statement*: Patient requires hospitalization for anemia, concerns for lower GI bleed, Coding Level of Care Code Acute Levers Lace Machine Operator for [facility] Fwd Diagnoses Hematochezia K92.1 Anemia D64.9
[2020-12-25 14:36] LABS: Hematocrit 25.8 % (37.0-47.0); Hemoglobin 8.5 g/dL (11.5-15.3)
[2020-12-25 14:49] LABS: INR 1.25 (0.8-1.2)
[2020-12-25 14:57] LABS: Ammonia 97 umol/L (11-51)
[2020-12-25 18:19] LABS: Hematocrit 24.8 % (37.0-47.0)
--- NOTE | 2020-12-25 18:22 | P.CONIM_ITS ---
Providers/Reason For Consult Consulting Physician/Specialty*: General Surgery Dr. Billy Reason for Consult*: Anemia Attending Physician: Brandon Fountain MD Primary Care Provider: Phil Cisneros MD History of Present Illness History of Present Illness Lexie Sylvester is a 75 year old female with history of stage IV cholangiocarcinoma, liver cirrhosis and lower extremity DVT on Eliquis who presents with a hemoglobin of 7.1. Patient also had a bloody bowel movement but she denies any chest pain, abdominal pain, shortness of breath, hematemesis or melena. I had performed an EGD and colonoscopy on her back in October 2020 which had shown radiation-induced gastritis. At that point after discussion with Dr. Hall it was decided to manage her with transfusions as needed Review of Systems General: Reports: 10 or more systems reviewed and unremarkable except in HPI and below Meds/Allergies Home Medications and Allergies Home Medications Medication Instructions Recorded Confirmed Last Taken Type ergocalciferol (vitamin D2) 50,000 unit PO Q7D 10/31/20 12/24/20 12/21/20 History furosemide 80 mg PO DAILY@0700 10/31/20 12/24/20 12/23/20 History ondansetron 8 mg PO Q8H PRN 10/31/20 12/24/20 Unknown History pantoprazole 40 mg PO DAILY@0700 10/31/20 12/24/20 12/23/20 History Xifaxan 550 mg PO BID@0700,1900 11/18/20 12/24/20 12/23/20 History Vitamin B-6 1 tab PO DAILY@0700 12/24/20 12/24/20 12/23/20 History lactulose See Rx Instructions .ROUTE .COMPLEX 12/24/20 12/24/20 12/23/20 History omeprazole 40 mg PO DAILY@00 12/24/20 12/24/20 12/23/20 History potassium chloride 20 meq PO DAILY@69912/24/20 12/24/20 12/23/20 History thyroid (pork) [[place] Thyroid] 180 mg PO DAILY@0700 12/24/20 12/24/20 12/23/20 History Allergies Allergy/AdvReac Type Severity Reaction Status Date / Time oxycodone Allergy ADR-Nausea Verified 12/15/20 14:55 tramadol Allergy ADR-Nausea Verified 12/15/20 14:55 Current Medications Current Medications Generic Name Dose Route Start Last Admin Trade Name Freq PRN Reason Stop Dose Admin Cyanocobalamin 1,000 mcg 12/25/20 09:00 12/25/20 09:29 Cyanocobalamin 1,000 Mcg Tablet PO 1,000 mcg DAILY GIRISH Administration Folic Acid 1 mg 12/25/20 09:00 12/25/20 09:29 Folic Acid 1 Mg Tablet PO 1 mg DAILY GIRISH Administration Lactulose 20 gm 12/25/20 10:00 12/25/20 18:08 Lactulose Oral Liq 20 Gm/30 Ml Udc PO 20 gm Q6H GIRISH Administration Pantoprazole Sodium 40 mg 12/24/20 23:00 12/25/20 11:31 Pantoprazole 40 Mg Sdv IVP 40 mg Q12H GIRISH Administration Rifaximin 550 mg 12/25/20 07:00 12/25/20 18:11 Rifaximin 550 Mg Tablet PO 550 mg BID@0700,1900 GIRISH Administration Protocol Sucralfate 1 gm 12/25/20 11:00 12/25/20 18:09 Sucralfate 1 Gm/10 Ml Oral Liq Udc PO 1 gm AC&BEDTIME GIRISH Administration PFSH Acute PFSH: Medical History Anemia Cholangiocarcinoma Endometrial cancer Hypothyroid Liver cirrhosis Pneumonia Rotator cuff arthropathy Thyroid cancer Uterine cancer Valvular heart disease Surgical History H/O esophagogastroduodenoscopy (11/19/20) H/O laparoscopy H/O lumpectomy History of hysterectomy History of liver biopsy History of salpingo-oophorectomy History of thyroidectomy, total Hx of cataract surgery Hx of tonsillectomy S/P AVR (aortic valve replacement) Status post colonoscopy (11/19/20) Family History Father Cancer Lung Cancer Brother CAD (coronary artery disease) Social History Smoking and tobacco status: never smoked Second hand smoke exposure: No Smoking risk assessment/counseling performed?: No Alcohol intake: never Counseling given: No Counseling given: No Lives independently: Yes Household members: spouse Marital status: Current gender identity: Female Vitals/I&O/Wt Last Vital Signs Temp 97.5 F L 12/25/20 13:45 Pulse 78 12/25/20 13:45 Resp 17 12/25/20 13:45 BP 103/58 12/25/20 13:45 Pulse Ox 96 12/25/20 13:45 12/25/20 12/25/20 12/25/20 06:59 14:59 22:59 Intake Total 900 / 900 Balance 900 / 900 Weight last 48 hrs Weight 215 lb Physical Exam Narrative: EXAM NARRATIVE: HEENT: Normocephalic Eye: Sclera /conjunctiva normal Abdomen: Soft to palpation Neurological: Oriented to place person and time Skin: Intact, no lesions appreciated on gross exam A&P Assessment and plan (1) Hematochezia: Patient is noted to be anemic and had an episode of hematochezia. The bleeding is most likely secondary to radiation-induced gastritis. She can be managed conservatively and at this point there is no justification to repeat the EGD since she is not having significant active bleeding Status: Acute (2) Ascites: We will consider obtaining ultrasound and possible ultrasound-guided drainage of ascites. The last drainage was just over a month ago. Status: Acute Consult Attestations Medical Necessity Statement: As per attending physician Coding Level of Care Code Acute Hydrological Technical Officer for [facility] Fwd Diagnoses Hematochezia K92.1 Ascites R18.8
[2020-12-25 22:32] LABS: Hematocrit 25.2 % (37.0-47.0); Hemoglobin 8.2 g/dL (11.5-15.3)
[2020-12-26] VITALS (7 sets, daily range): BP systolic 104–131; BP diastolic 67–77; PULSE 86–95; RESP 16–19; TEMP 36.5–37; O2SAT 94–97
[2020-12-26 02:17] LABS: Hematocrit 23.9 % (37.0-47.0); Hemoglobin 7.8 g/dL (11.5-15.3)
[2020-12-26] MEDS: lactulose oral liq 20 gm/30 mL UDC PO ×3 (04:50→18:01)
[2020-12-26 05:15] LABS: Basophils % 0.4 %; Eosinophils # 0.2 10^3/uL (0.0-0.8); Eosinophils % 2.1 %; Hemoglobin 8.3 g/dL (11.5-15.3); Lymphocytes # 1.3 10^3/uL (0.8-4.8); Lymphocytes % 15.5 %; Mean Corpuscular HGB Conc 33.2 g/dL (30.0-36.0); Mean Corpuscular Volume 90.3 fL (81-99); Mean Platelet Volume 10.3 fL (7.4-10.4); Monocytes # 0.9 10^3/uL (0.2-0.9); Monocytes % 11.1 %; Neutrophils # 5.71 10^3/uL (1.8-7.7); Neutrophils % 70.7 %; Nucleated Red Blood Cells % 0 %; Platelet Count 103 10^3/cmm (130-400); Red Blood Count 2.77 10^6/uL (4.1-5.3); Red Cell Distribution Width 16.2 % (12.1-15.1); White Blood Count 8.1 10^3/uL (4.0-10.0)
[2020-12-26 05:29] LABS: Ammonia 68 umol/L (11-51)
[2020-12-26 05:35] LABS: INR 1.28 (0.8-1.2)
[2020-12-26 06:25] LABS: Alanine Aminotransferase 33 U/L (0-33); Albumin Level 2.1 g/dL (3.5-5.2); Alkaline Phosphatase 199 IU/L (35-105); Anion Gap 11.9 (5-19); Aspartate Amino Transferase 87 U/L (0-32); Blood Urea Nitrogen 37 mg/dL (8-23); Calcium 7.4 mg/dL (8.5-10.5); Carbon Dioxide 28 mmol/L (22-29); Chloride 95 mmol/L (98-107); Creatinine Clr Calc Pharmacy 55.7662; Globulin 2.3 g/dL (1.3-4.6); Glucose 133 mg/dL (65-115); Magnesium 2.1 mg/dL (1.7-2.3); NT Pro B Type Natriuretic Pept 325 pg/mL (0-125); Osmolality Calculated 283 mOsm/kg (285-295); Phosphorus 3.4 mg/dL (2.5-4.5); Potassium 3.9 mmol/L (3.5-5.1); Sodium 131 mmol/L (136-145); Total Bilirubin 0.8 mg/dL (0.15-1.2); Total Protein 4.4 g/dL (6.6-8.7)
--- NOTE | 2020-12-26 06:38 | PC.NURSE ---
PER CHARGE NURSE PATIENTS 0600 H AND H WAS NOT DRAWN DUE TO MORNING LABS BEING DRAWN AT 0432 AND RESULTING SHORTLY THEREAFTER. PLEASE SEE MORNING LAB RESULTS FOR VALUES.
[2020-12-26] MEDS: thyroid 60 mg Tablet 180 MG PO (07:36)
[2020-12-26] MEDS: sucralfate 1 gm/10 mL Oral Liq UDC PO ×4 (07:36→20:51)
[2020-12-26] MEDS: folic acid 1 mg Tablet PO (10:21)
[2020-12-26] MEDS: cyanocobalamin 1,000 mcg Tablet 1000 MCG PO (10:21)
[2020-12-26] MEDS: pantoprazole 40 mg SDV IVP ×2 (12:20→23:04)
--- NOTE | 2020-12-26 12:36 | PM.PN ---
Subjective Subjective: Interval history: Patient denies any abdominal pain, tolerating regular diet, no further GI bleeding Vitals/I&O/Wt Last Vital Signs Temp 98.0 F 12/26/20 11:00 Pulse 90 12/26/20 11:00 Resp 18 12/26/20 11:00 BP 112/71 12/26/20 11:00 Pulse Ox 96 12/26/20 11:00 12/25/20 12/26/20 12/26/20 22:59 06:59 14:59 Intake Total 240 / 240 240 / 240 Balance 240 / 240 240 / 240 Weight last 48 hrs Weight 215 lb Physical Exam Narrative: EXAM NARRATIVE: Abdomen: Soft, nontender, distended, Data : 12/26/20 04:32 12/26/20 04:32 A&P Assessment and plan (1) Hematochezia: Patient has history of radiation-induced gastritis noted on EGD performed couple of months ago. At this point managed conservatively with blood transfusion and PPI therapy. We will hold off on an EGD unless there is any evidence of active GI bleed. Status: Acute (2) Ascites: Patient will need paracentesis Status: Acute Attestations Medical Necessity Statement*: As per primary Coding Level of Care Code Acute Lubrication Worker for [facility] Diagnoses Hematochezia K92.1 Ascites R18.8
[2020-12-26] MEDS: FUROsemide 10 mg/mL SDV 2mL 20 MG IVP (12:59)
--- NOTE | 2020-12-26 13:10 | PM.PN ---
Subjective Subjective: Interval history: Patient was seen this morning, she tells that she did have one episode of black bowel movement this morning, no lightheadedness, no dizziness, is on a regular diet, she tells me that she feels uncomfortable going home today, as she just does not feel well she does not have appropriate help at home Vitals/I&O/Wt Last Vital Signs Temp 98.0 F 12/26/20 11:00 Pulse 90 12/26/20 11:00 Resp 18 12/26/20 11:00 BP 112/71 12/26/20 11:00 Pulse Ox 96 12/26/20 11:00 12/25/20 12/26/20 12/26/20 22:59 06:59 14:59 Intake Total 240 / 240 240 / 240 Balance 240 / 240 240 / 240 Weight last 48 hrs Weight 97.522 kg Physical Exam Const: COMMON NORMALS: no acute distress and patient oriented x3 Chest: OTHER: Port in place Resp: COMMON NORMALS: normal respiratory effort, No retractions, No use of accessory muscles and clear to auscultation bilaterally AUSCULTATION: clear to auscultation bilaterally Cardio: COMMON NORMALS: regular rate, regular rhythm, S1 normal heart sound present and S2 normal heart sound present RATE: regular rate RHYTHM: regular rhythm HEART SOUNDS: S1 normal heart sound present and S2 normal heart sound present GI: COMMON NORMALS: Normal to inspection, nondistended, normoactive bowel sounds present, Soft to palpation and non-tender PALPATION: Yes Soft to palpation Extremity: COMMON NORMALS: no pedal edema Neuro: COMMON NORMALS: patient oriented x3 Psych: COMMON NORMALS: mental status grossly normal Data : 12/26/20 04:32 12/26/20 04:32 A&P Assessment and plan (1) Hematochezia: Status: Acute (2) Anemia: Status: Acute Additional A&P Information Bright bleed per rectum/hematochezia Hemoglobin 8.3 One episode of black bowel movement this morning Check hemoglobin every 6 hours, monitor hemodynamics closely Hold IV fluids due to concerns for fluid overload, mild bilateral extremity edema, on 2 l, will give 20 mg of Lasix recently had an EGD and colonoscopy with finding of Schatzki's ring, gastritis, diverticulosis, with hemorrhoids Platelet count 103,000, INR 1.28 blood pressure 110/62, no abdominal pain Protonix 40 IV twice daily, Carafate, on a general diet Status post 2 units PRBC leukoreduced Previous history of gastric ulcer bleeding status post cauterization 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 Billy Her IVC filter was removed today, no abdominal pain or signs of hematoma, ultrasound of bilateral lower extremities was performed and did not show DVT, apparently her hemoglobin was 7.2 which was tested at [facility] however she was not given any blood transfusion before removal of IVC filter History of cholangiocarcinoma, status post chemoradiation, followed through [facility], next follow-up in January History of bilateral lower extremity DVTs, initially on anticoagulation, stopped due to GI bleed, with IVC filter placement, now subsequent removal, SCDs, PT OT Has transfusion dependent anemia, second ongoing GI blood loss, thought to be secondary to gastritis secondary to radiation therapy History of liver cirrhosis, by liver biopsy and MRI, with hepatic encephalopathy, on lactulose and rifaximin Abdominal ultrasound shows large ascites, patient tells me that it is not causing shortness of breath, she does have abdominal distention, does not feel tight, for now we will hold off on paracentesis unless required, last time she had a paracentesis was over a month ago Full code DVT prophylaxis contraindicated would use SCDs General diet Attestations Medical Necessity Statement*: Patient requires hospitalization for anemia, hematochezia Coding Level of Care Code Acute Senior Principal Process Engineer for [facility] Diagnoses Hematochezia K92.1 Anemia D64.9
[2020-12-26 13:36] LABS: Hematocrit 25.8 % (37.0-47.0); Hemoglobin 8.2 g/dL (11.5-15.3)
--- NOTE | 2020-12-26 18:25 | USR_ITS ---
PROCEDURE INFORMATION: Exam: US Abdomen, Limited; Right Upper Quadrant Exam date and time: 12/26/2020 6:25 PM Age: 75 years old Clinical indication: Bloating; Additional info: Liver cirhosis TECHNIQUE: Imaging protocol: US abdomen. Real time ultrasound with image documentation. Limited exam focused on the right upper quadrant. COMPARISON: US abdomen t fluid [id number] 12/14/2020 10:35 AM FINDINGS: Liver: There is a lobulated nodular contour of the liver which is consistent with hepatic cirrhosis. No liver masses are demonstrated. Gallbladder: The gallbladder is contracted with thickened wall. The gallbladder wall measures 4.2 mm in thickness. There is no pericholecystic fluid. Multiple stones are present in the contracted gallbladder. Common bile duct: The bile ducts are normal. The common duct measures 5.9 mm in diameter. Pancreas: Visualized pancreas is unremarkable. Right kidney: There is right renal cortical atrophy. There is no hydronephrosis or calcification. Aorta: The aorta is unremarkable. Inferior vena cava: The inferior vena cava is unremarkable. Intraperitoneal space: There is a large volume ascites throughout the abdomen. US/US liver [id number] IMPRESSION: 1. Large ascites. 2. Hepatic cirrhosis. 3. Cholelithiasis.
[2020-12-26 18:59] LABS: Hematocrit 24.5 % (37.0-47.0)
[2020-12-26 19:13] LABS: Ammonia 79 umol/L (11-51)
[2020-12-27] VITALS (16 sets, daily range): BP systolic 102–146; BP diastolic 55–81; PULSE 93–106; RESP 16–19; TEMP 36.4–37.2; O2SAT 92–96
[2020-12-27 01:38] LABS: Hematocrit 22.5 % (37.0-47.0); Hemoglobin 7.5 g/dL (11.5-15.3)
[2020-12-27 06:27] LABS: Basophils % 0.3 %; Eosinophils # 0.2 10^3/uL (0.0-0.8); Eosinophils % 1.7 %; Hematocrit 23.8 % (37.0-47.0); Hemoglobin 7.6 g/dL (11.5-15.3); Lymphocytes # 1.3 10^3/uL (0.8-4.8); Lymphocytes % 15.2 %; Mean Corpuscular HGB Conc 31.9 g/dL (30.0-36.0); Mean Corpuscular Hemoglobin 29.7 pg (28.0-34.0); Mean Platelet Volume 10.2 fL (7.4-10.4); Monocytes # 1.1 10^3/uL (0.2-0.9); Monocytes % 12.1 %; Neutrophils # 6.18 10^3/uL (1.8-7.7); Neutrophils % 70.1 %; Nucleated Red Blood Cells % 0 %; Platelet Count 85 10^3/cmm (130-400); Red Blood Count 2.56 10^6/uL (4.1-5.3); Red Cell Distribution Width 16.5 % (12.1-15.1); White Blood Count 8.8 10^3/uL (4.0-10.0)
[2020-12-27] MEDS: sucralfate 1 gm/10 mL Oral Liq UDC PO ×4 (06:40→21:51)
[2020-12-27] MEDS: thyroid 60 mg Tablet 180 MG PO (06:41)
[2020-12-27 06:42] LABS: Ammonia 124 umol/L (11-51)
[2020-12-27 06:49] LABS: Alanine Aminotransferase 34 U/L (0-33); Albumin Level 1.9 g/dL (3.5-5.2); Alkaline Phosphatase 208 IU/L (35-105); Aspartate Amino Transferase 73 U/L (0-32); Blood Urea Nitrogen 35 mg/dL (8-23); Carbon Dioxide 26 mmol/L (22-29); Chloride 97 mmol/L (98-107); Globulin 2.4 g/dL (1.3-4.6); Glucose 177 mg/dL (65-115); NT Pro B Type Natriuretic Pept 327 pg/mL (0-125); Osmolality Calculated 280 mOsm/kg (285-295); Phosphorus 3.3 mg/dL (2.5-4.5); Sodium 129 mmol/L (136-145); Total Bilirubin 0.6 mg/dL (0.15-1.2); Total Protein 4.3 g/dL (6.6-8.7)
[2020-12-27 06:50] LABS: INR 1.19 (0.8-1.2)
[2020-12-27 06:52] LABS: Creatinine Clr Calc Pharmacy 55.7662
[2020-12-27 07:01] LABS: Potassium 4.4 mmol/L (3.5-5.1)
[2020-12-27 07:02] LABS: Anion Gap 10.4 (5-19)
[2020-12-27] MEDS: folic acid 1 mg Tablet PO (09:20)
[2020-12-27] MEDS: cyanocobalamin 1,000 mcg Tablet 1000 MCG PO (09:20)
[2020-12-27] MEDS: lactulose oral liq 20 gm/30 mL UDC PO (09:20)
--- NOTE | 2020-12-27 09:53 | PC.SOCIAL ---
IMM UPDATE IMM updated with patient. Left copy at bedside. Verbalized understanding. Initialed, dated, timed and placed in chart.
[2020-12-27] MEDS: pantoprazole 40 mg SDV IVP ×2 (10:13→22:07)
[2020-12-27] MEDS: sodium chloride 0.9% (100 ml) 100 ML ×2 (10:49→16:17)
--- NOTE | 2020-12-27 13:18 | P.PN_ITS ---
Subjective Subjective: Interval history: This morning patient was seen, she sitting up in a chair, she is alert oriented x3, her ammonia level is 126, she did not take her lactulose overnight, she did have one episode of bloody bowel movement this morning, no lightheadedness, no dizziness, patient tells me that she can make at home, her is oxygen dependent, and is chronically ill, she also has an autistic son, her daughter yesterday went back to [place], she does have [place] home [facility] care, patient work with physical therapy, and physical therapy found that she was a high risk to go home, high fall risk, recommended short-term rehab Vitals/I&O/Wt Last Vital Signs Temp 98.0 F 12/27/20 11:50 Pulse 101 H 12/27/20 11:50 Resp 18 12/27/20 11:50 BP 119/74 12/27/20 11:50 Pulse Ox 93 12/27/20 11:50 12/26/20 12/27/20 12/27/20 22:59 06:59 14:59 Intake Total 480 / 960 850 / 850 Balance 480 / 960 850 / 850 Physical Exam Const: COMMON NORMALS: no acute distress and patient oriented x3 Chest: OTHER: Port in place Resp: COMMON NORMALS: normal respiratory effort, No retractions, No use of accessory muscles and clear to auscultation bilaterally AUSCULTATION: clear to auscultation bilaterally Cardio: COMMON NORMALS: regular rate, regular rhythm, S1 normal heart sound present and S2 normal heart sound present RATE: regular rate RHYTHM: regular rhythm HEART SOUNDS: S1 normal heart sound present and S2 normal heart sound present GI: COMMON NORMALS: Normal to inspection, nondistended, normoactive bowel sounds present, Soft to palpation and non-tender PALPATION: Yes Soft to palpation Extremity: COMMON NORMALS: no pedal edema Neuro: COMMON NORMALS: patient oriented x3 Psych: COMMON NORMALS: mental status grossly normal Data : 12/27/20 05:50 12/27/20 05:50 A&P Assessment and plan (1) Hematochezia: Status: Acute (2) Anemia: Status: Acute Additional A&P Information Bright bleed per rectum/hematochezia Hemoglobin 7.6 Will transfuse 2 units PRBC One episode of black bowel movement this morning Check hemoglobin every 6 hours, monitor hemodynamics closely Hold IV fluids due to concerns for fluid overload, mild bilateral extremity edema, on 2 l, will give 20 mg of Lasix recently had an EGD and colonoscopy with finding of Schatzki's ring, gastritis, diverticulosis, with hemorrhoids Platelet count 85,000 , INR 1.19 blood pressure 110/62, no abdominal pain Protonix 40 IV twice daily, Carafate, on a general diet Status post 2 units PRBC leukoreduced, now total 4 units Previous history of gastric ulcer bleeding status post cauterization 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 Billy Her IVC filter was removed today, no abdominal pain or signs of hematoma, ultrasound of bilateral lower extremities was performed and did not show DVT, apparently her hemoglobin was 7.2 which was tested at [facility] however she was not given any blood transfusion before removal of IVC filter History of cholangiocarcinoma, status post chemoradiation, followed through [facility], next follow-up in January History of bilateral lower extremity DVTs, initially on anticoagulation, stopped due to GI bleed, with IVC filter placement, now subsequent removal, SCDs, PT OT Has transfusion dependent anemia, second ongoing GI blood loss, thought to be secondary to gastritis secondary to radiation therapy History of liver cirrhosis, by liver biopsy and MRI, with hepatic encephalopathy, on lactulose and rifaximin Abdominal ultrasound shows large ascites, patient tells me that it is not causing shortness of breath, she does have abdominal distention, does not feel tight, for now we will hold off on paracentesis unless required, last time she had a paracentesis was over a month ago Disposition, unsafe to go home, assessed by physical therapy, high fall risk, alert oriented x3, answers all questions appropriate, her is oxygen dependent, son is autistic, daughter is in [place], does have [place], can make decisions for self, discussed risks of going home, risk of falls, significant morbidity and mortality associated complications, she voiced unders tanding all questions answered, for now she wants to talk to her daughter, Full code DVT prophylaxis contraindicated would use SCDs General diet Attestations Medical Necessity Statement*: Patient requires hospitalization for right red blood per rectum, GI bleed, ascites, Coding Level of Care Code Acute Business Records Manager for Chg Fwd Diagnoses Hematochezia K92.1 Anemia D64.9
[2020-12-27] MEDS: lactulose oral liq 20 gm/30 mL UDC 40 GM PO (16:17)
--- NOTE | 2020-12-27 23:53 | CTR_ITS ---
PROCEDURE INFORMATION: Exam: CT Head Without Contrast Exam date and time: 12/27/2020 11:53 PM Age: 75 years old Clinical indication: Injury or trauma; Blunt trauma (contusions or hematomas); Without loss of consciousness; Patient HX: Backwards fall from chair denies loc; Additional info: Fell TECHNIQUE: Imaging protocol: Computed tomography of the head without contrast. Radiation optimization: All CT scans at this facility use at least one of these dose optimization techniques: automated exposure control; mA and/or kV adjustment per patient size (includes targeted exams where dose is matched to clinical indication); or iterative reconstruction. COMPARISON: CT head wo con* [id number] 10/31/2020 4:05 PM RADIATION DOSE METRICS: Total DLP (mGy-cm): 840.7 FINDINGS: Brain: Mild patient motion occurs during the examination. No hemorrhage or evidence of acute infarction is seen. Cerebral ventricles: No ventriculomegaly. Paranasal sinuses: Visualized sinuses are unremarkable. No fluid levels. Mastoid air cells: Visualized mastoid air cells are well aerated. Bones/joints: Unremarkable. No acute fracture. Soft tissues: Mild soft tissue swelling is present in the right parietal scalp. CT/CT head wo con* [id number] IMPRESSION: No acute intracranial abnormality Radiation Dose CTDIVOL = (mGy): DLP = 840.7 (mGy-cm)
[2020-12-28] VITALS (7 sets, daily range): BP systolic 120–142; BP diastolic 66–83; PULSE 95–109; RESP 17–22; TEMP 36.5–36.9; O2SAT 92–97
--- NOTE | 2020-12-28 01:12 | PC.NURSE ---
Chair broke Patient was hollering Help when entering the room patient was flipped over in her recliner. The recliner back had broke causing patient to flip over. Patient stated she was fine but did have a knot on the side of her head. Vitals taken and doctor notified. Ct scan was done.
[2020-12-28] MEDS: lactulose oral liq 20 gm/30 mL UDC 40 GM PO ×4 (01:17→21:50)
[2020-12-28 06:01] LABS: Basophils # 0.1 10^3/uL (0.0-0.1); Basophils % 0.5 %; Eosinophils # 0.2 10^3/uL (0.0-0.8); Hematocrit 29.4 % (37.0-47.0); Hemoglobin 9.7 g/dL (11.5-15.3); Lymphocytes % 9.2 %; Mean Corpuscular Hemoglobin 29.8 pg (28.0-34.0); Mean Corpuscular Volume 90.2 fL (81-99); Mean Platelet Volume 10.3 fL (7.4-10.4); Monocytes # 1.3 10^3/uL (0.2-0.9); Monocytes % 11.2 %; Neutrophils # 8.61 10^3/uL (1.8-7.7); Neutrophils % 76.6 %; Nucleated Red Blood Cells % 0 %; Platelet Count 81 10^3/cmm (130-400); Red Blood Count 3.26 10^6/uL (4.1-5.3); Red Cell Distribution Width 16.6 % (12.1-15.1); White Blood Count 11.2 10^3/uL (4.0-10.0)
[2020-12-28 06:08] LABS: INR 1.18 (0.8-1.2)
[2020-12-28] MEDS: sucralfate 1 gm/10 mL Oral Liq UDC PO ×4 (06:09→21:50)
[2020-12-28] MEDS: thyroid 60 mg Tablet 180 MG PO (06:09)
[2020-12-28 06:14] LABS: Ammonia 78 umol/L (11-51)
[2020-12-28 06:25] LABS: Alanine Aminotransferase 40 U/L (0-33); Alkaline Phosphatase 250 IU/L (35-105); Anion Gap 13.4 (5-19); Aspartate Amino Transferase 90 U/L (0-32); Blood Urea Nitrogen 34 mg/dL (8-23); Calcium 8.3 mg/dL (8.5-10.5); Carbon Dioxide 27 mmol/L (22-29); Chloride 98 mmol/L (98-107); Globulin 2.7 g/dL (1.3-4.6); Glucose 176 mg/dL (65-115); Magnesium 1.9 mg/dL (1.7-2.3); NT Pro B Type Natriuretic Pept 499 pg/mL (0-125); Osmolality Calculated 290 mOsm/kg (285-295); Phosphorus 3.3 mg/dL (2.5-4.5); Potassium 4.4 mmol/L (3.5-5.1); Sodium 134 mmol/L (136-145); Total Bilirubin 1.6 mg/dL (0.15-1.2); Total Protein 4.7 g/dL (6.6-8.7)
--- NOTE | 2020-12-28 09:54 | XRR_ITS ---
PROCEDURE INFORMATION: Exam: XR Cervical Spine Exam date and time: 12/28/2020 9:54 AM Age: 75 years old Clinical indication: Pain and injury or trauma; Fall; Blunt trauma; Neck pain; Injury date: 12/27 TECHNIQUE: Imaging protocol: XR of the cervical spine. Views: 2 or 3 views. COMPARISON: CT head wo con* [id number] 12/28/2020 12:15 AM FINDINGS: Bones/joints: Normal. No acute fracture. Normal alignment. The 6th and 7th cervical vertebral bodies are not visible on the lateral view. Incidentally noted is evidence of metallic sternotomy wires Soft tissues: Unremarkable. There is a central line in place on the right side extending into the SVC. XR/XR cervical spine 3V* [id number] IMPRESSION: 1. Generalized osteopenia of the dorsal spine without abnormality. 2. The C6 and C7 vertebral bodies are not visible on lateral view 3. Right central line is in the SVC 4. Incidentally noted is sternotomy changes
--- NOTE | 2020-12-28 09:54 | XRR_ITS ---
PROCEDURE INFORMATION: Exam: XR Thoracic Spine Exam date and time: 12/28/2020 9:54 AM Age: 75 years old Clinical indication: Pain and injury or trauma; Fall; Blunt trauma (contusions or hematomas); Pain in thoracic spine TECHNIQUE: Imaging protocol: XR of the thoracic spine. Views: 3 views. COMPARISON: CT abdomen pelvis w con* [id number] 11/17/2020 11:36 AM FINDINGS: Bones/joints: Generalized osteopenia is seen. No acute fracture. Normal alignment. Metallic sternotomy wires are in place. Soft tissues: Unremarkable. There is a right central line extending into the SVC. XR/XR thoracic spine 3V* [id number] IMPRESSION: 1. Severe osteopenia of the dorsal spine. 2. Negative for acute bony abnormalities. 3. Right central line is in the SVC 4. Status post sternotomy
--- NOTE | 2020-12-28 09:54 | XRR_ITS ---
PROCEDURE INFORMATION: Exam: XR Lumbosacral Spine Exam date and time: 12/28/2020 9:54 AM Age: 75 years old Clinical indication: Injury or trauma; Fall; Blunt trauma (contusions or hematomas); Injury date: 12/27; Injury details: Pt's chair broke and she fell TECHNIQUE: Imaging protocol: XR of the lumbosacral spine. Views: 2 or 3 views. COMPARISON: CT abdomen pelvis w con* [id number] 11/17/2020 11:36 AM FINDINGS: Bones/joints: There is severe osteopenia and osteoarthritis seen in the spine. No acute fracture. Normal alignment. Soft tissues: Unremarkable. XR/XR lumbar spine 2-3V* [id number] IMPRESSION: 1. Generalized osteopenia and osteoarthritis. 2. Otherwise No acute findings.
[2020-12-28] MEDS: spironolactone 25 mg Tablet PO (10:08)
[2020-12-28] MEDS: FUROsemide 40 mg Tablet 20 MG PO (10:09)
[2020-12-28] MEDS: folic acid 1 mg Tablet PO (10:13)
[2020-12-28] MEDS: cyanocobalamin 1,000 mcg Tablet 1000 MCG PO (10:13)
[2020-12-28] MEDS: pantoprazole 40 mg SDV IVP ×2 (11:23→22:58)
--- NOTE | 2020-12-28 13:14 | PM.PN ---
Subjective Subjective: Interval history: Last night patient was sitting in her chair, when the chair gave way, and she fell to the floor, her head hit the floor and the IV pole base, no loss of consciousness, no significant bleeding, CT of the head was negative for any acute bleed, she has no complaints of hip pain, no knee pain, no significant bruising, but does have mid back pain, but minimal currently, is currently she sitting in a wheelchair, no headache, no blurry vision, no nausea, no vomiting, alert oriented x3, just work with physical therapy Patient yesterday spoke to her daughter, and they have decided that she needs to go to a prison for short-term rehab, patient is agreeable, understands is important Yesterday evening, patient was a bit frustrated with nursing staff, she wanted to be transferred, she wanted to transfer to [facility], I did call [facility] for the transfer, however after speaking with the social services coordinator who spoke with a physician, did not feel that a transfer was necessary at this point, and declined, patient was made aware this Vitals/I&O/Wt Last Vital Signs Temp 97.8 F 12/28/20 12:00 Pulse 95 12/28/20 12:00 Resp 18 12/28/20 12:00 BP 120/70 12/28/20 12:00 Pulse Ox 97 12/28/20 12:00 12/27/20 12/28/20 12/28/20 22:59 06:59 14:59 Intake Total 1070 / 1920 120 / 120 Balance 1070 / 1920 120 / 120 Physical Exam Const: COMMON NORMALS: no acute distress and patient oriented x3 Chest: OTHER: Port in place Resp: COMMON NORMALS: normal respiratory effort, No retractions, No use of accessory muscles and clear to auscultation bilaterally AUSCULTATION: clear to auscultation bilaterally Cardio: COMMON NORMALS: regular rate, regular rhythm, S1 normal heart sound present and S2 normal heart sound present RATE: regular rate RHYTHM: regular rhythm HEART SOUNDS: S1 normal heart sound present and S2 normal heart sound present GI: COMMON NORMALS: Normal to inspection, nondistended, normoactive bowel sounds present and Soft to palpation PALPATION: Yes Soft to palpation Back/Pelvis: OTHER: Paraspinal tenderness at T8 Extremity: COMMON NORMALS: no pedal edema Neuro: COMMON NORMALS: patient oriented x3 Psych: COMMON NORMALS: mental status grossly normal Data : 12/28/20 05:31 07 05:31 A&P Assessment and plan (1) Hematochezia: Status: Acute (2) Anemia: Status: Acute Additional A&P Information Bright bleed per rectum/hematochezia Hemoglobin 9.7 Status post 4 units PRBC No episodes of bloody movement overnight Check hemoglobin every 6 hours, monitor hemodynamics closely Hold IV fluids due to concerns for fluid overload, mild bilateral extremity edema, on 2 l, will start on 25 mg of spironolactone with 40 mg of Lasix daily recently had an EGD and colonoscopy with finding of Schatzki's ring, gastritis, diverticulosis, with hemorrhoids Platelet count 81,000 , INR 1.18 blood pressure 110/62, no abdominal pain Protonix 40 IV twice daily, Carafate, on a general diet Previous history of gastric ulcer bleeding status post cauterization 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 Billy, conservative manage Her IVC filter was removed today, no abdominal pain or signs of hematoma, ultrasound of bilateral lower extremities was performed and did not show DVT, apparently her hemoglobin was 7.2 which was tested at [facility] however she was not given any blood transfusion before removal of IVC filter History of cholangiocarcinoma, status post chemoradiation, followed through [facility], next follow-up in January History of bilateral lower extremity DVTs, initially on anticoagulation, stopped due to GI bleed, with IVC filter placement, now subsequent removal, SCDs, PT OT Has transfusion dependent anemia, second ongoing GI blood loss, thought to be secondary to gastritis secondary to radiation therapy History of liver cirrhosis, by liver biopsy and MRI, pneumonia 79, with hepatic encephalopathy, on lactulose and rifaximin Abdominal ultrasound shows large ascites, patient tells me that it is not causing shortness of breath, she does have abdominal distention, does not feel tight, for now we will hold off on paracentesis unless required, last time she had a paracentesis was over a month ago Disposition, unsafe to go home, assessed by physical therapy, high fall risk, alert oriented x3, answers all questions appropriate, her is oxygen dependent, son is autistic, daughter is in [place], does have [place], can make decisions for self, discussed risks of going home, risk of falls, significant morbidity and mortality associated complications, she voiced understanding all questions answered, for now she wants to talk to her daughter, -Has agreed to go to nursing facility, will discuss with case management Fall, CT of the head no acute bleed, will do x-ray of her spine, [place] for pain, PT OT Full code DVT prophylaxis contraindicated would use SCDs General diet Attestations Medical Necessity Statement*: Patient requires hospitalization for anemia, liver cirrhosis, ascites, fall, Coding Level of Care Code Acute Mechanical Maintenance for g Fwd Diagnoses Hematochezia K92.1 Anemia D64.9
--- NOTE | 2020-12-28 14:21 | PC.NUTR ---
Nutrition reassessment: Pt and family member with several complaints at time of RD visit. Reported pt is not receiving awilda as requested with trays, yet also stated dietary staff had not been asking her for meal preferences except for recent meal(s). (therefore unclear when they would have requested the lemon). Also reported that nursing staff not checking on patient frequently and not meeting pt's requests. Notified nursing staff of statements. Spoke with dietary staff regarding need to obtain pt preferences--staff stated pt did not answer the phone (unclear how many times this occurred). Have entered telephone order per Dr. Fountain for water with lemon at meals, as well as butter pecan Ensure with meals. Informed pt that if she doesn't like this supplement flavor we can try others. Other dietary preferences for pt remain in place. See RD assessment for further details. Note: When discussing supplement options with pt and family member, this RD noted that pt has had elevated glucose and may consider Glucerna. Family member stated that they are not concerned about her blood sugar, nor is her physician, and that they preferred Ensure or other supplements (not lower carb). Pt did not seem to confirm/deny this statement.
[2020-12-28] MEDS: ondansetron 2 mg/ML SDV 2 mL 4 MG IVP (16:21)
[2020-12-29] VITALS (7 sets, daily range): BP systolic 108–126; BP diastolic 66–76; PULSE 93–104; RESP 18–19; TEMP 36.4–36.9; O2SAT 90–96
[2020-12-29] MEDS: lactulose oral liq 20 gm/30 mL UDC 40 GM PO ×3 (03:37→20:39)
[2020-12-29 06:14] LABS: Basophils # 0.1 10^3/uL (0.0-0.1); Basophils % 0.5 %; Eosinophils # 0.3 10^3/uL (0.0-0.8); Eosinophils % 3.1 %; Hematocrit 29.3 % (37.0-47.0); Hemoglobin 8.8 g/dL (11.5-15.3); Lymphocytes # 0.8 10^3/uL (0.8-4.8); Lymphocytes % 8.3 %; Mean Platelet Volume 11.6 fL (7.4-10.4); Monocytes # 1.4 10^3/uL (0.2-0.9); Monocytes % 14.8 %; Neutrophils # 6.64 10^3/uL (1.8-7.7); Neutrophils % 72.5 %; Nucleated Red Blood Cells % 0 %; Platelet Count 72 10^3/cmm (130-400); Red Blood Count 2.93 10^6/uL (4.1-5.3); Red Cell Distribution Width 17.1 % (12.1-15.1); White Blood Count 9.2 10^3/uL (4.0-10.0)
[2020-12-29 06:33] LABS: Alanine Aminotransferase 38 U/L (0-33); Albumin Level 1.9 g/dL (3.5-5.2); Alkaline Phosphatase 239 IU/L (35-105); Anion Gap 13.4 (5-19); Aspartate Amino Transferase 90 U/L (0-32); Blood Urea Nitrogen 33 mg/dL (8-23); Calcium 7.7 mg/dL (8.5-10.5); Carbon Dioxide 25 mmol/L (22-29); Chloride 102 mmol/L (98-107); Globulin 2.4 g/dL (1.3-4.6); Glucose 158 mg/dL (65-115); Magnesium 2.1 mg/dL (1.7-2.3); Osmolality Calculated 293 mOsm/kg (285-295); Phosphorus 3.6 mg/dL (2.5-4.5); Potassium 4.4 mmol/L (3.5-5.1); Sodium 136 mmol/L (136-145); Total Bilirubin 0.7 mg/dL (0.15-1.2); Total Protein 4.3 g/dL (6.6-8.7)
[2020-12-29] MEDS: thyroid 60 mg Tablet 180 MG PO (08:36)
[2020-12-29] MEDS: sucralfate 1 gm/10 mL Oral Liq UDC PO ×4 (08:36→20:39)
[2020-12-29] MEDS: folic acid 1 mg Tablet PO (08:37)
[2020-12-29] MEDS: FUROsemide 40 mg Tablet 20 MG PO (08:37)
[2020-12-29] MEDS: spironolactone 25 mg Tablet PO (08:37)
[2020-12-29] MEDS: cyanocobalamin 1,000 mcg Tablet 1000 MCG PO (08:37)
[2020-12-29] MEDS: pantoprazole 40 mg SDV IVP ×2 (13:30→23:07)
--- NOTE | 2020-12-29 14:16 | PM.PN ---
Subjective Subjective: Interval history: Patient was seen this morning, no falls overnight, no bloody or black stools, she still waiting to hear back from her daughter, but is quite hesitant about going to a retirement, no worsening abdominal pain, Vitals/I&O/Wt Last Vital Signs Temp 97.7 F 12/29/20 11:53 Pulse 93 12/29/20 11:53 Resp 18 12/29/20 11:53 BP 110/66 12/29/20 11:53 Pulse Ox 96 12/29/20 11:53 12/28/20 12/29/20 12/29/20 22:59 06:59 14:59 Intake Total 720 / 840 240 / 1080 720 / 720 Output Total 100 / 100 Balance 620 / 740 240 / 980 720 / 720 Physical Exam Const: COMMON NORMALS: no acute distress and patient oriented x3 Chest: OTHER: Port in place Resp: COMMON NORMALS: normal respiratory effort, No retractions, No use of accessory muscles and clear to auscultation bilaterally AUSCULTATION: clear to auscultation bilaterally Cardio: COMMON NORMALS: regular rate, regular rhythm, S1 normal heart sound present and S2 normal heart sound present RATE: regular rate RHYTHM: regular rhythm HEART SOUNDS: S1 normal heart sound present and S2 normal heart sound present GI: COMMON NORMALS: Normal to inspection, nondistended, normoactive bowel sounds present and Soft to palpation INSPECTION: Yes abdominal distension PALPATION: Yes Soft to palpation Extremity: COMMON NORMALS: no pedal edema Neuro: COMMON NORMALS: patient oriented x3 Psych: COMMON NORMALS: mental status grossly normal Data : 12/29/20 05:11 12/29/20 05:11 A&P Assessment and plan (1) Hematochezia: Status: Acute (2) Anemia: Status: Acute Additional A&P Information Bright bleed per rectum/hematochezia Hemoglobin 8.8 Status post 4 units PRBC No episodes of bloody movement overnight Check hemoglobin every 6 hours, monitor hemodynamics closely Hold IV fluids due to concerns for fluid overload, mild bilateral extremity edema, on 2 l, will start on 25 mg of spironolactone with 40 mg of Lasix daily recently had an EGD and colonoscopy with finding of Schatzki's ring, gastritis, diverticulosis, with hemorrhoids Platelet count 72,000 , INR 1.18 No abdominal pain Protonix 40 IV twice daily, Carafate, on a general diet Previous history of gastric ulcer bleeding status post cauterization 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 Billy, conservative manage Her IVC filter was removed today, no abdominal pain or signs of hematoma, ultrasound of bilateral lower extremities was performed and did not show DVT, apparently her hemoglobin was 7.2 which was tested at [facility] however she was not given any blood transfusion before removal of IVC filter History of cholangiocarcinoma, status post chemoradiation, followed through [facility], next follow-up in January History of bilateral lower extremity DVTs, initially on anticoagulation, stopped due to GI bleed, with IVC filter placement, now subsequent removal, SCDs, PT OT Has transfusion dependent anemia, second ongoing GI blood loss, thought to be secondary to gastritis secondary to radiation therapy History of liver cirrhosis, by liver biopsy and MRI, with hepatic encephalopathy, on lactulose and rifaximin Abdominal ultrasound shows large ascites, patient tells me that it is not causing shortness of breath, she does have abdominal distention, does not feel tight, for now we will hold off on paracentesis unless required, last time she had a paracentesis was over a month ago Disposition, unsafe to go home, assessed by physical therapy, high fall risk, alert oriented x3, answers all questions appropriate, her is oxygen dependent, son is autistic, daughter is in [place], does have [employer], can make decisions for self, discussed risks of going home, risk of falls, significant morbidity and mortality associated complications, she voiced understanding all questions answered, for now she wants to talk to her daughter, -Now quite hesitant about going to nursing facility, daughter is working on this, showcase maker is working on this Fall, CT of the head no acute bleed, will do x-ray of spine no acute fracture, [place] for pain, PT OT Full code DVT prophylaxis contraindicated would use SCDs General diet Attestations Medical Necessity Statement*: Patient requires hospitalization for transfusion dependent anemia, lower GI bleed, Coding Level of Care Code Acute Federal Judge for Chg Fwd Diagnoses Hematochezia K92.1 Anemia D64.9
[2020-12-29] MEDS: ondansetron 2 mg/ML SDV 2 mL 4 MG IVP ×2 (14:56→21:31)
[2020-12-29] MEDS: FUROsemide 10 mg/mL SDV 4mL 40 MG IVP (17:50)
[2020-12-30] MEDS: ondansetron 2 mg/ML SDV 2 mL 4 MG IVP ×2 (02:49→11:14)
--- NOTE | 2020-12-30 03:04 | PC.NURSE ---
shift note patient angry early in the shift, verbalized having been waiting for someone to get her and take her to have fluids removed from abdomen, patient denied declining and insistent that she will always do what doctor feels needs to be done for her to get better, patient began having emisis, consistency resembles curdled milk and yellow fluid. zofran administered by RN, RN explained to daughter who was on the phone at time that issue of having parasynthesis will be address in the morning and patient will be monitored closely. patient pacified at that time, nausea had resolved and patient rested, 0300 patient awakened and verbalized feeling nausea and feels she is going to throw up, zofran administered by RN
[2020-12-30 04:00] VITALS: BP 108/61; PULSE 88; RESP 16; TEMP 36.8; O2SAT 95
[2020-12-30] MEDS: lactulose oral liq 20 gm/30 mL UDC 40 GM PO ×4 (04:16→23:07)
[2020-12-30 06:01] LABS: Alanine Aminotransferase 42 U/L (0-33); Albumin Level 1.9 g/dL (3.5-5.2); Alkaline Phosphatase 250 IU/L (35-105); Anion Gap 11.6 (5-19); Aspartate Amino Transferase 89 U/L (0-32); Blood Urea Nitrogen 38 mg/dL (8-23); Calcium 7.8 mg/dL (8.5-10.5); Carbon Dioxide 27 mmol/L (22-29); Chloride 99 mmol/L (98-107); Globulin 2.6 g/dL (1.3-4.6); Glucose 175 mg/dL (65-115); Osmolality Calculated 289 mOsm/kg (285-295); Phosphorus 3.9 mg/dL (2.5-4.5); Potassium 4.6 mmol/L (3.5-5.1); Sodium 133 mmol/L (136-145); Total Bilirubin 0.7 mg/dL (0.15-1.2); Total Protein 4.5 g/dL (6.6-8.7)
[2020-12-30] MEDS: sucralfate 1 gm/10 mL Oral Liq UDC PO ×4 (06:15→20:54)
[2020-12-30] MEDS: thyroid 60 mg Tablet 180 MG PO (06:16)
[2020-12-30 07:42] VITALS: BP 125/73; PULSE 99; RESP 20; TEMP 36.7; O2SAT 94
[2020-12-30 08:37] VITALS: PULSE 97; O2SAT 93
[2020-12-30 10:04] LABS: Basophils % 0.4 %; Eosinophils # 0.3 10^3/uL (0.0-0.8); Eosinophils % 2.6 %; Hematocrit 28.5 % (37.0-47.0); Hemoglobin 9.2 g/dL (11.5-15.3); Lymphocytes # 1.1 10^3/uL (0.8-4.8); Lymphocytes % 10.2 %; Mean Corpuscular HGB Conc 32.3 g/dL (30.0-36.0); Mean Corpuscular Hemoglobin 29.9 pg (28.0-34.0); Mean Corpuscular Volume 92.5 fL (81-99); Mean Platelet Volume 10.5 fL (7.4-10.4); Monocytes # 1.7 10^3/uL (0.2-0.9); Monocytes % 16.5 %; Neutrophils # 7.15 10^3/uL (1.8-7.7); Neutrophils % 69.6 %; Nucleated Red Blood Cells % 0 %; Platelet Count 94 10^3/cmm (130-400); Red Blood Count 3.08 10^6/uL (4.1-5.3); Red Cell Distribution Width 16.5 % (12.1-15.1); White Blood Count 10.3 10^3/uL (4.0-10.0)
--- NOTE | 2020-12-30 10:27 | PC.CHAP ---
Pastoral Care Encounter/Spiritual Assessment Type of Contact [] Declined wall to wall carpet installer visit [] Patient/Family/Request visit [] Outpatient visit [] Follow-up visit [] Physician referral [] Code/Alert [x] Routine visit [] Staff referral [] Actively dying [] Patient sleeping [] Family support [] [] Out of room [] Palliative care [] [] Receiving care in room [] Pre-surgical visit [] Trauma [] Long length of stay [] ICU visit [] Other: Relational/Emotional Strength [x] Patient feels connected with others/family/visitors/staff [] Distress [] Loneliness/isolation [] Abandonment Spirituality of Patient [x] Person of [place] [x] Attends Sabianism of their [place] [x] Believes in Prayer [x] Reads Bible or Spiritism materials [] There are Spiritual issues to be addressed Global Marketing Intern Interventions [x] Prayer [x] Active listeningx [] Non-anxious presence [x] Spiritual/emotional support [] Crisis/trauma care [] Spiritual counseling [] Bereavement support [] Provided bereavement packet [] Provided Bible/devotional materials [] Provided toy/stuffed animal, coloring book to patient or family member [] Provided Communion [] Anointing/[place] [] Salvation [x] Completed spiritual assessment [] Other: Impact on Illness or Injury [] Angry [] Fearful [] Anxious [] Often cries [] Exhaustion [] Unable to work [] Unable to attend mormon [] Unable to walk/stand [] Unable to read [] Unable to drive [] Unable to eat/drink [] Unable to sleep [] Unable to be with family [] Patient intubated [] Other: Summary Time spent with patient 10min
[2020-12-30] MEDS: pantoprazole 40 mg SDV IVP ×2 (10:39→23:12)
[2020-12-30] MEDS: spironolactone 25 mg Tablet PO (10:39)
[2020-12-30] MEDS: cyanocobalamin 1,000 mcg Tablet 1000 MCG PO (10:40)
[2020-12-30] MEDS: folic acid 1 mg Tablet PO (10:40)
[2020-12-30] MEDS: FUROsemide 40 mg Tablet 20 MG PO (10:40)
[2020-12-30 11:13] VITALS: BP 124/71; PULSE 87; RESP 20; TEMP 36.6; O2SAT 94
--- NOTE | 2020-12-30 11:14 | ECG_ITS ---
[facility] ED Test Date: 2020-12-30 Pat Name: Lexie Sylvester Department: Room: 256 Gender: Female Subgrade Tester: : [id number] Requested By: Ortega Puente Order Number: [id number] Morgan MD: Sade Barraza M.D. Measurements Intervals [place] Rate: 96 P: 19 IA: 155 QRS: -33 QRSD: 114 T: 43 QT: 354 QTc: 447 Interpretive Statements SINUS RHYTHM WITH SINUS ARRHYTHMIA MARKED LEFT AXIS DEVIATION [QRS AXIS < -30] LOW QRS VOLTAGE IN PRECORDIAL LEADS [QRS DEFLECTION < 1.0 mV IN CHEST LEADS] ANTEROSEPTAL MYOCARDIAL INFARCTION [40+ ms Q WAVE IN V1-V4], OF INDETERMINATE AGE Compared to ECG 10/31/2020 16:42:18 Low QRS voltage now present Sinus tachycardia no longer present Ventricular premature complex(es) no longer present Myocardial infarct finding still present Electronically Signed On 01-01-2021 6:18:54 CDT by Sade Barraza M.D. [id number]
[2020-12-30] MEDS: metoclopramide 5 mg/mL SDV 2 mL 10 MG IVP (13:02)
[2020-12-30] MEDS: HYDROcodone-acetaminophen 5-325 mg Tablet 1 TAB PO (13:21)
--- NOTE | 2020-12-30 15:20 | PC.OT ---
OT tx attempted x2 today. Pt not feeling well and states I can't move with all this fluid in my belly . She complains of pain and nausea.Nursing providing medications and pt now sleeping. Family requests therapy to be held at this time.
[2020-12-30 15:42] VITALS: BP 123/72; PULSE 93; RESP 16; TEMP 36.4
--- NOTE | 2020-12-30 18:05 | P.PN_ITS ---
Subjective Subjective: Interval history: 75 year old female with history of endometrial cancer s/p hysterectomy/BSO, thyroid cancer s/p thyroidectomy, hypothyroidism, stage IV cholangiocarcinoma, liver cirrhosis with subsequent thrombocytopenia, hepatic encephalopathy, ascites s/p recent paracentesis on 11/19 yielding 4.7L of fluid, lower extremity DVT initially was put on Eliquis now status hx of post IVC filter, bioprosthetic aortic valve replacement 2013 who presented today with chief complaint of bright bleed per rectum. Patient was recently seen by general surgery for this and taken for an EGD which was shown Schatzkis ring at 35 cm, hiatal hernia, radiation gastritis. Colonoscopy showedSmall patches of mucosal erythema likely secondary to radiation without any evidence of bleeding and grade 4 hemorrhoids.Laboratory workup upon arrival showed a WBC of 7.9, hemoglobin of 7.1 which was a decrease from 9.1 on 12/21, hematocrit of 25.2 platelet count of 92.Sodium 133, potassium 4.1, chloride 97, bicarb 28, BUN 40 and creatinine of 1.0. Ammonia of 97.Imaging studies included a right upper quadrant ultrasound which showed evidence of large ascites, hepatic cirrhosis and cholelithiasis.CT head was also performed which did not show any evidence of acute intracranial abnormality. Cervical spinal, thoracic, lumbar x-ray did not show any acute fractures however osteopenia was noted. General surgery was consulted. Patient was transfused 4 units of PRBC. Hemoglobin remained stable and improved to 9.2. 12/30/20 Patient continued to complain of abdominal distension leading to pain. Stated she felt her ascites was getting worse. Also complaining of generalized weakness, nausea and nonbloody emesis. No recurrent episodes of bright red blood per rectum. Hemoglobin remains stable. No fever or chills. Medications: Reviewed: Yes Vitals/I&O/Wt Last Vital Signs Temp 97.5 F L 12/30/20 15:42 Pulse 93 12/30/20 15:42 Resp 16 12/30/20 15:42 BP 123/72 12/30/20 15:42 Pulse Ox 94 12/30/20 11:13 12/30/20 12/30/20 12/30/20 06:59 14:59 22:59 Intake Total 480 / 1760 360 / 360 Balance 480 / 1760 360 / 360 Physical Exam Const: COMMON NORMALS: no acute distress and patient oriented x3 Chest: OTHER: Port in place Resp: COMMON NORMALS: normal respiratory effort, No retractions, No use of accessory muscles and clear to auscultation bilaterally AUSCULTATION: clear to auscultation bilaterally Cardio: COMMON NORMALS: regular rate, regular rhythm, S1 normal heart sound present and S2 normal heart sound present RATE: regular rate RHYTHM: regular rhythm HEART SOUNDS: S1 normal heart sound present and S2 normal heart sound present GI: COMMON NORMALS: Soft to palpation; negative for Normal to inspection, nondistended, normoactive bowel sounds present INSPECTION: Yes abdominal distension PALPATION: Yes Soft to palpation Back/Pelvis: OTHER: Paraspinal tenderness at T8 Extremity: COMMON NORMALS: no pedal edema Neuro: COMMON NORMALS: patient oriented x3 Psych: COMMON NORMALS: mental status grossly normal Data : 12/30/20 09:52 12/30/20 05:02 A&P Assessment and plan (1) Hematochezia: Status: Acute (2) Anemia: Status: Acute Additional A&P Information H/H stable GS consult Recent egd/colonoscopy Ascietes Plan for paracentesis in am Full code DVT prophylaxis contraindicated would use SCDs General diet Attestations Medical Necessity Statement*: Continue current hospitaliation for management of worsening ascietes. Time Spent in Patient Care: Greater than 35 minutes (>than 50% of time spent in counselling and/or direct pt care on unit) . Coding Level of Care Code Acute Campus Recruiting Intern for Chg Fwd Exam Detailed Diagnoses Hematochezia K92.1 Anemia D64.9
[2020-12-30 20:00] VITALS: BP 142/84; PULSE 95; RESP 18; TEMP 36.8; O2SAT 95
[2020-12-31] VITALS: BP 121/78; PULSE 92; RESP 17; TEMP 36.5; O2SAT 95
[2020-12-31 04:00] VITALS: BP 125/72; PULSE 92; RESP 17; TEMP 36.6; O2SAT 94
--- NOTE | 2020-12-31 04:44 | PC.NURSE ---
shift note patient in bed, rested, npo since midnight in prep for parasynthesis, daughter at bedside, had 3 loose stools, yellow in color no blood noted, incontinent of bladder. patient more calm this shift.
[2020-12-31 06:29] LABS: Basophils % 0.5 %; Eosinophils # 0.3 10^3/uL (0.0-0.8); Eosinophils % 3.9 %; Hematocrit 27.3 % (37.0-47.0); Hemoglobin 8.5 g/dL (11.5-15.3); Lymphocytes # 0.9 10^3/uL (0.8-4.8); Lymphocytes % 11.5 %; Mean Corpuscular HGB Conc 31.1 g/dL (30.0-36.0); Mean Corpuscular Hemoglobin 29.1 pg (28.0-34.0); Mean Corpuscular Volume 93.5 fL (81-99); Mean Platelet Volume 10.3 fL (7.4-10.4); Monocytes # 1.3 10^3/uL (0.2-0.9); Monocytes % 16.7 %; Neutrophils # 4.98 10^3/uL (1.8-7.7); Neutrophils % 66.7 %; Nucleated Red Blood Cells % 0 %; Platelet Count 85 10^3/cmm (130-400); Red Blood Count 2.92 10^6/uL (4.1-5.3); Red Cell Distribution Width 16.6 % (12.1-15.1); White Blood Count 7.5 10^3/uL (4.0-10.0)
[2020-12-31 06:46] LABS: Ammonia 56 umol/L (11-51)
[2020-12-31 06:51] LABS: Alanine Aminotransferase 49 U/L (0-33); Alkaline Phosphatase 281 IU/L (35-105); Anion Gap 10.3 (5-19); Aspartate Amino Transferase 115 U/L (0-32); Blood Urea Nitrogen 37 mg/dL (8-23); Calcium 7.9 mg/dL (8.5-10.5); Carbon Dioxide 29 mmol/L (22-29); Chloride 99 mmol/L (98-107); Globulin 2.6 g/dL (1.3-4.6); Glucose 171 mg/dL (65-115); Magnesium 2.1 mg/dL (1.7-2.3); Osmolality Calculated 291 mOsm/kg (285-295); Phosphorus 3.9 mg/dL (2.5-4.5); Potassium 4.3 mmol/L (3.5-5.1); Sodium 134 mmol/L (136-145); Total Bilirubin 0.7 mg/dL (0.15-1.2); Total Protein 4.6 g/dL (6.6-8.7)
[2020-12-31 08:00] VITALS: BP 102/56; PULSE 93; RESP 18; TEMP 36.9; O2SAT 93
[2020-12-31 09:06] LABS: INR 1.16 (0.8-1.2)
--- NOTE | 2020-12-31 11:03 | PC.SOCIAL ---
*IMM UPDATE* Gave patient IMM update. Provided copy of pg 2 of IMM. Verbalized understanding. 12/31/20 @ 0932 Initialed, dated, timed and placed in chart.
[2020-12-31] MEDS: pantoprazole 40 mg SDV IVP (11:39)
[2020-12-31] MEDS: lactulose oral liq 20 gm/30 mL UDC 40 GM PO (11:39)
[2020-12-31] MEDS: spironolactone 25 mg Tablet PO (11:40)
[2020-12-31] MEDS: FUROsemide 40 mg Tablet 80 MG PO (11:40)
[2020-12-31] MEDS: sucralfate 1 gm/10 mL Oral Liq UDC PO ×2 (11:40→17:26)
[2020-12-31] MEDS: cyanocobalamin 1,000 mcg Tablet 1000 MCG PO (11:40)
[2020-12-31] MEDS: folic acid 1 mg Tablet PO (11:40)
[2020-12-31] MEDS: thyroid 60 mg Tablet 180 MG PO (11:42)
[2020-12-31 11:46] LABS: Body Fluid Polynuclear #Cells 0.014; Body Fluid WBC 76 /uL; Monocytes # Body Fluid 0.062; RBC, Body Fluid 0 10^3/uL
[2020-12-31 11:54] VITALS: BP 107/50; PULSE 89; RESP 16; TEMP 36.4; O2SAT 93
--- NOTE | 2020-12-31 12:00 | US_ITS ---
WS: [id number] ULTRASOUND-GUIDED THERAPEUTIC AND DIAGNOSTIC PARACENTESIS Procedure, risks, and complications have been explained to the patient. Consent is obtained. Utilizing aseptic technique and 1% buffered lidocaine, a small dermatome was made through which a 5 F rench Yueh catheter was inserted. Approximately 7000 ml of clear peritoneal fluid was obtained witho ut difficulty. No complications encountered. Specimen collected for analysis as requested. US/US paracentesis abd w [id number] IMPRESSION: Uncomplicated paracentesis yielding 7000 ml of peritoneal fluid. Peritoneal fluid collected for analysis as requested.
[2020-12-31 12:02] LABS: Apprearance, Body Fluid CLEAR; Color, Body Fluid COLORLESS; PATH Referral YES
[2020-12-31 12:15] LABS: Albumin Body Fluid 0.3 g/dL; LDH Body Fluid 55 U/L; Total Protein Body Fluid 0.4 g/dL
--- NOTE | 2020-12-31 14:02 | PC.OT ---
OT treatment attempted twice. Patient was preparing for procedure the first time, and was eating lunch the second time. Patient expressed that she is discharging today and does not assistance at this time. Will attempt tomorrow if she is still here.
--- NOTE | 2020-12-31 14:39 | P.DS_ITS ---
Discharge Providers Date of Admission: 12/24/20 19:47 Date of Discharge: December 31, 2020 Attending Provider at Admission: Bharati Brown MD Attending Provider at Discharge: Ortega Puente Primary Care Provider: Phil Cisneros MD Diagnoses at Discharge Discharge Diagnosis (1) Hematochezia: Status: Resolved (2) Anemia: Status: Acute Reason for Visit Reason for Visit: active rectal bleeding, had surgery this morning Hospital Course Hospital Course 75 year old female with history of endometrial cancer s/p hysterectomy/BSO, thyroid cancer s/p thyroidectomy, hypothyroidism, stage IV cholangiocarcinoma, liver cirrhosis with subsequent thrombocytopenia, hepatic encephalopathy, ascites s/p recent paracentesis on 11/19 yielding 4.7L of fluid, lower extremity DVT initially was put on Eliquis now status hx of post IVC filter, bioprosthetic aortic valve replacement 2013 who presented today with chief complaint of bright bleed per rectum. Patient was recently seen by general surgery for this and taken for an EGD which was shown Schatzkis ring at 35 cm, hiatal hernia, radiation gastritis. Colonoscopy showedSmall patches of mucosal erythema likely secondary to radiation without any evidence of bleeding and grade 4 h emorrhoids.Laboratory workup upon arrival showed a WBC of 7.9, hemoglobin of 7.1 which was a decrease from 9.1 on 12/21, hematocrit of 25.2 platelet count of 92.Sodium 133, potassium 4.1, chloride 97, bicarb 28, BUN 40 and creatinine of 1.0. Ammonia of 97.Imaging studies included a right upper quadrant ultrasound which showed evidence of large ascites, hepatic cirrhosis and cholelithiasis.CT head was also performed which did not show any evidence of acute intracranial abnormality. Cervical spinal, thoracic, lumbar x-ray did not show any acute fractures however osteopenia was noted. General surgery was consulted. Patient was transfused 4 units of PRBC. Hemoglobin remained stable and improved > 8.0. Paitent did not have any recurrence of rectal bleed. Hospitalization was further complicated with complaint of increasing abdominal distension leading to pain. Stated she felt her ascites was getting worse. on 12/31 a US guided paracentesis yielding 7000 ml of peritoneal fluid. Post proc edure patient was stable and wanting discharge to SNF. She was accepted at [facility]. Case was reviewed with Dr. Cisneros. Physical Exam Const: COMMON NORMALS: no acute distress and patient oriented x3 Chest: OTHER: Port in place Resp: COMMON NORMALS: normal respiratory effort, No retractions, No use of accessory muscles and clear to auscultation bilaterally AUSCULTATION: clear to auscultation bilaterally Cardio: COMMON NORMALS: regular rate, regular rhythm, S1 normal heart sound present and S2 normal heart sound present RATE: regular rate RHYTHM: regular rhythm HEART SOUNDS: S1 normal heart sound present and S2 normal heart sound present GI: COMMON NORMALS: Soft to palpation; negative for Normal to inspection, nondistended, normoactive bowel sounds present INSPECTION: Yes abdominal distension PALPATION: Yes Soft to palpation Back/Pelvis: OTHER: Paraspinal tenderness at T8 Extremity: COMMON NORMALS: no pedal edema Neuro: COMMON NORMALS: patient oriented x3 Psych: COMMON NORMALS: mental status grossly normal Discharge Data Data Completed and Pending: Completed Studies During Hospitalization Category Date Time Status CT head wo con* 7 0450 Stat Cat Scan 12/27/20 23:53 Completed XR cervical spine 3V* [id number] Routine Exams 12/28/20 09:54 Completed XR lumbar spine 2 -3V* [id number] Routine Exams 12/28/20 09:54 Completed XR thoracic spine 3V* [id number] Routine Exams 12/28/20 09:54 Completed US liver [id number] Ro utine Ultrasound 12/26/20 18:25 [place] bd w [id number] Routine Ultrasound 12/31/20 12:00 Completed Pending at discharge Category Date Time Status Anaerobic Culture Routine Lab 12/30/20 18:02 Results Body Fluid Cultur e & GS Routine Lab 12/30/20 18:02 Results Labs from last 24 hours 12/31/20 12/31/20 12/31/20 10:40 08:46 06:10 WBC RBC Hgb Hct MCV MCH MCHC RDW Plt Count MPV Neut % (Auto) Lymph % (Auto) [place] % (Auto) Eos % (Auto) Baso % (Auto) Neut # (Auto) Lymph # (Auto) [place] # (Auto) Eos # (Auto) Baso # (Auto) Nucleated RBC % (a uto) Nucleated RBCs # Differential Comme nt Yes PT 15.10 H INR 1.16 Sodium 134 L Potassium 4.3 Chloride 99 Carbon Dioxide 29 Anion Gap 10.3 BUN 37 H Creatinine 0.9 GFR Calculation Not Reportable Glucose 171 H Calculated Osmolal ity 291 Calcium 7.9 L Phosphorus 3.9 Magnesium 2.1 Total Bilirubin 0.7 AST 115 H ALT 49 H Alkaline Phosphata se 281 H Ammonia Total Protein 4.6 L Albumin 2.0 L Globulin 2.6 Fluid Color Colorless Fluid Appearance Clear Fluid Specific Gra v 1.010 Fluid pH 8.0 Fluid WBC 76 Fluid RBC 0 Fld Polynuclear WB Cs # 0.014 Fld Polynuclear WB Cs % 18.400 Fl Mononucl WBCs # (Auto) 0.062 Fl Mononuclear % A uto 81.600 Fluid Glucose 195.0 Fluid Total Protei n 0.4 Fluid Albumin 0.3 Fluid LDH 55 12/31/20 12/31/20 06:10 06:10 WBC 7.5 RBC 2.92 L Hgb 8.5 L Hct 27.3 L MCV 93.5 MCH 29.1 MCHC 31.1 RDW 16.6 H Plt Count 85 L MPV 10.3 Neut % (Auto) 66.7 Lymph % (Auto) 11.5 [place] % (Auto) 16.7 Eos % (Auto) 3.9 Baso % (Auto) 0.5 Neut # (Auto) 4.98 Lymph # (Auto) 0.9 [place] # (Auto) 1.3 H Eos # (Auto) 0.3 Baso # (Auto) 0.0 Nucleated RBC % (a uto) 0 Nucleated RBCs # 0.0 Differential Comme nt PT INR Sodium Potassium Chloride Carbon Dioxide Anion Gap BUN Creatinine GFR Calculation Glucose Calculated Osmolal ity Calcium Phosphorus Magnesium Total Bilirubin AST ALT Alkaline Phosphata se Ammonia 56 H Total Protein Albumin Globulin Fluid Color Fluid Appearance Fluid Specific Gra v Fluid pH Fluid WBC Fluid RBC Fld Polynuclear WB Cs # Fld Polynuclear WB Cs % Fl Mononucl WBCs # (Auto) Fl Mononuclear % A uto Fluid Glucose Fluid Total Protei n Fluid Albumin Fluid LDH Vitals: Last Vital Signs Temp 97.6 F 12/31/20 11:54 Pulse 89 12/31/20 11:54 Resp 16 12/31/20 11:54 BP 107/50 12/31/20 11:54 Pulse Ox 93 12/31/20 11:54 Discharge Plan Discharge Patient Disposition: Xfer SNF Condition: Stable Prescriptions: New spironolactone 25 mg Tablet 25 mg PO DAILY Qty: 30 RF: 0 pyridoxine (vitamin B6) 25 mg tablet 25 mg PO DAILY Qty: 30 RF: 0 Continued furosemide 40 mg tablet 80 mg PO DAILY@0700 RF: 0 ondansetron 8 mg tablet,disintegrating 8 mg PO Q8H PRN (Reason: Nausea) RF: 0 ergocalciferol (vitamin D2) 1,250 mcg (50,000 unit) capsule 50,000 unit PO Q7D RF: 0 [place] Thyroid 180 mg tablet 180 mg PO DAILY@0700 RF: 0 potassium chloride 20 mEq tablet extended release 20 meq PO DAILY@0700 RF: 0 Xifaxan 550 mg tablet 550 mg PO BID@0700,1900 RF: 0 Changed pantoprazole 40 mg tablet,delayed release (DR/EC) 40 mg PO BID Qty: 30 RF: 0 lactulose 10 gram/15 mL solution 20 g PO TID 30 Days Qty: 1350 RF: 0 Discontinued omeprazole 40 mg capsule,delayed release(DR/EC) 40 mg PO DAILY@0700 RF: 0 Vitamin B-6 1 tab PO DAILY@0700 RF: 0 Discharge Orders: Discharge Order (Routine); Ordered 12/31/20 Ordered By: Ortega Puente Other Ambulatory Orders: Complete Blood Count w/Auto (Routine) Timeframe: 1 Week Location: Determined by Patient Ordered By: Ortega Puente Referrals: [facility] [Outside] Blue Billy MD [Physician] - 02/05/21 8:20 am Phil Cisneros MD [Primary Care Provider] - 1-3 days Discharge Diet: Usual diet Discharge Activity: Increase activity as tolerated Activity Restrictions/Additional Instructions: Return to Er if any recurrence of rectal bleed. Discharge Attestations Time Spent in Discharge Care*: greater than 30 min Specific Discharge Activities: educating patient, educating and/or supporting family/caregiver, discussing with pcp/other providers, documenting/other paperwork and evaluating patient/reviewing data Status at Discharge: Cognitive status at discharge: mildly impaired cognition , Behavioral status at discharge: cooperative , Functional status at discharge: other assisted ambulation Overall status at discharge: patient is progressing back to baseline Quality Metrics Clinical Quality Measures During this hospital stay, did patient experience: None Coding Level of Care Code Acute Chg FW DC note Exam Detailed Diagnoses Hematochezia K92.1 Anemia D64.9
[2020-12-31 16:00] VITALS: BP 101/49; PULSE 98; RESP 16; TEMP 36.8; O2SAT 93
[2020-12-31 18:16] VITALS: BP 107/62; PULSE 98; RESP 16; TEMP 36.8; O2SAT 93
== END 2020-12-31 18:00 | disposition skilled nursing facility (03) | DRG 378 ==
LOC: ER 20:21 → MEDSURG 20:44
PROVIDERS: Family Medicine; Admitting Provider Internal Medicine; Emergency Provider Emergency Medicine; PCP Family Medicine; Visit Provider Hospitalist
DX: K92.1 Melena (principal); C22.1 Intrahepatic bile duct carcinoma; D62 Acute posthemorrhagic anemia; R18.8 Other ascites; K74.60 Unspecified cirrhosis of liver; Z86.718 Personal history of other venous thrombosis and embolism; E89.0 Postprocedural hypothyroidism; Z85.850 Personal history of malignant neoplasm of thyroid; Z85.42 Personal history of malignant neoplasm of other parts of uterus; Z90.710 Acquired absence of both cervix and uterus; Z95.3 Presence of xenogenic heart valve; Z92.3 Personal history of irradiation; Z87.01 Personal history of pneumonia (recurrent); Z92.21 Personal history of antineoplastic chemotherapy; K22.2 Esophageal obstruction; K29.60 Other gastritis without bleeding; W88.1XXS Exposure to radioactive isotopes, sequela; K64.3 Fourth degree hemorrhoids; K57.90 Diverticulosis of intestine, part unspecified, without perforation or abscess without bleeding; Z90.722 Acquired absence of ovaries, bilateral; Z90.79 Acquired absence of other genital organ(s); K44.9 Diaphragmatic hernia without obstruction or gangrene; M85.88 Other specified disorders of bone density and structure, other site; K72.90 Hepatic failure, unspecified without coma; M54.6 Pain in thoracic spine; W07.XXXA Fall from chair, initial encounter; Y92.230 Patient room in hospital as the place of occurrence of the external cause
CPT/HCPCS: 36415; 36430; 36591; 49083; 70450; 72040; 72072; 72100; 76705; 80048; 80053; 80500; 82042; 82140; 82945; 83615; 83735; 83880; 83986; 84100; 84157; 84315; 85014; 85018; 85025; 85610; 86850; 86900; 86920; 87070; 87075; 87205; 89050; 93005; 97116; 97161; 97165; 97530; 97535; C9113; J1940; J2405; J2765; P9016; P9040

== ENCOUNTER 2021-01-01 17:27 | Outpatient (CLI) | payer MEDICARE, BC, SELFPAY ==
[2021-01-01 17:57] LABS: Basophils % 0.5 %; Eosinophils # 0.2 10^3/uL (0.0-0.8); Eosinophils % 2.1 %; Hematocrit 26.6 % (37.0-47.0); Hemoglobin 8.6 g/dL (11.5-15.3); Lymphocytes # 0.9 10^3/uL (0.8-4.8); Lymphocytes % 11.8 %; Mean Corpuscular HGB Conc 32.3 g/dL (30.0-36.0); Mean Corpuscular Volume 92.7 fL (81-99); Mean Platelet Volume 10.6 fL (7.4-10.4); Monocytes # 1.2 10^3/uL (0.2-0.9); Monocytes % 14.9 %; Neutrophils # 5.45 10^3/uL (1.8-7.7); Neutrophils % 70.2 %; Nucleated Red Blood Cells % 0 %; Platelet Count 91 10^3/cmm (130-400); Red Blood Count 2.87 10^6/uL (4.1-5.3); Red Cell Distribution Width 16.4 % (12.1-15.1); White Blood Count 7.8 10^3/uL (4.0-10.0)
== END 2021-01-01 17:28 | disposition home or self-care (01) ==
LOC: LAB 17:42
PROVIDERS: PCP Family Medicine; Visit Provider Family Medicine
DX: D64.9 Anemia, unspecified (principal)
CPT/HCPCS: 85025

== ENCOUNTER 2021-01-18 05:48 | Outpatient (RCR) | payer MEDICARE, BC, SELFPAY ==
[2021-01-04 11:20] LABS: Basophils # 0.1 10^3/uL (0.0-0.1); Basophils % 0.7 %; Eosinophils # 0.1 10^3/uL (0.0-0.8); Eosinophils % 0.7 %; Hemoglobin 8.5 g/dL (11.5-15.3); Lymphocytes # 0.9 10^3/uL (0.8-4.8); Lymphocytes % 8.4 %; Mean Corpuscular HGB Conc 31.5 g/dL (30.0-36.0); Mean Corpuscular Volume 92.2 fL (81-99); Mean Platelet Volume 10.6 fL (7.4-10.4); Monocytes # 1.3 10^3/uL (0.2-0.9); Monocytes % 11.9 %; Neutrophils % 77.8 %; Nucleated Red Blood Cells % 0 %; Platelet Count 111 10^3/cmm (130-400); Red Blood Count 2.93 10^6/uL (4.1-5.3); Red Cell Distribution Width 16.1 % (12.1-15.1); White Blood Count 10.5 10^3/uL (4.0-10.0)
[2021-01-04 11:42] LABS: Alanine Aminotransferase 51 U/L (0-33); Alkaline Phosphatase 314 IU/L (35-105); Anion Gap 15.2 (5-19); Aspartate Amino Transferase 90 U/L (0-32); Blood Urea Nitrogen 35 mg/dL (8-23); Calcium 7.1 mg/dL (8.5-10.5); Carbon Dioxide 25 mmol/L (22-29); Chloride 95 mmol/L (98-107); Globulin 2.8 g/dL (1.3-4.6); Glucose 203 mg/dL (65-115); Osmolality Calculated 284 mOsm/kg (285-295); Potassium 5.2 mmol/L (3.5-5.1); Sodium 130 mmol/L (136-145); Total Bilirubin 0.8 mg/dL (0.15-1.2); Total Protein 4.8 g/dL (6.6-8.7)
[2021-01-04 11:43] LABS: Ammonia 74 umol/L (11-51)
[2021-01-07 09:05] LABS: Basophils # 0.1 10^3/uL (0.0-0.1); Basophils % 0.5 %; Eosinophils # 0.2 10^3/uL (0.0-0.8); Eosinophils % 1.6 %; Hematocrit 25.3 % (37.0-47.0); Hemoglobin 8.3 g/dL (11.5-15.3); Lymphocytes # 1.1 10^3/uL (0.8-4.8); Lymphocytes % 9.9 %; Mean Corpuscular HGB Conc 32.8 g/dL (30.0-36.0); Mean Corpuscular Hemoglobin 29.9 pg (28.0-34.0); Monocytes # 1.5 10^3/uL (0.2-0.9); Monocytes % 13.7 %; Neutrophils % 73.4 %; Nucleated Red Blood Cells % 0 %; Platelet Count 129 10^3/cmm (130-400); Red Blood Count 2.78 10^6/uL (4.1-5.3); Red Cell Distribution Width 16.8 % (12.1-15.1); White Blood Count 10.8 10^3/uL (4.0-10.0)
[2021-01-07] MEDS: diphenhydrAMINE 25 mg Capsule PO (10:45)
[2021-01-07] MEDS: acetaminophen 325 mg Tablet PO (11:05)
[2021-01-07 11:20] VITALS: BP 120/74; PULSE 99; RESP 18; TEMP 36; O2SAT 98
[2021-01-07 11:35] VITALS: BP 121/76; PULSE 100; RESP 18; TEMP 36; O2SAT 98
[2021-01-07 12:05] VITALS: BP 122/74; PULSE 108; RESP 18; TEMP 36.6; O2SAT 98
[2021-01-07 12:50] VITALS: BP 121/70; PULSE 100; RESP 18; TEMP 36.4; O2SAT 97
[2021-01-07] MEDS: sodium chloride 0.9% 250 ML 999 ML IV (16:49)
[2021-01-11 09:26] LABS: Basophils # 0.1 10^3/uL (0.0-0.1); Basophils % 0.7 %; Eosinophils # 0.2 10^3/uL (0.0-0.8); Eosinophils % 2.3 %; Hematocrit 25.3 % (37.0-47.0); Hemoglobin 8.3 g/dL (11.5-15.3); Lymphocytes % 11.1 %; Mean Corpuscular HGB Conc 32.8 g/dL (30.0-36.0); Mean Corpuscular Hemoglobin 30.3 pg (28.0-34.0); Mean Corpuscular Volume 92.3 fL (81-99); Mean Platelet Volume 10.4 fL (7.4-10.4); Monocytes # 1.2 10^3/uL (0.2-0.9); Monocytes % 13.9 %; Neutrophils # 6.33 10^3/uL (1.8-7.7); Neutrophils % 71.7 %; Nucleated Red Blood Cells % 0 %; Platelet Count 107 10^3/cmm (130-400); Red Blood Count 2.74 10^6/uL (4.1-5.3); Red Cell Distribution Width 18.1 % (12.1-15.1); White Blood Count 8.8 10^3/uL (4.0-10.0)
[2021-01-11 09:46] LABS: Ammonia 51 umol/L (11-51)
[2021-01-11 10:07] LABS: Alanine Aminotransferase 33 U/L (0-33); Alkaline Phosphatase 294 IU/L (35-105); Anion Gap 14.2 (5-19); Aspartate Amino Transferase 71 U/L (0-32); Blood Urea Nitrogen 39 mg/dL (8-23); Calcium 7.3 mg/dL (8.5-10.5); Carbon Dioxide 25 mmol/L (22-29); Chloride 95 mmol/L (98-107); Globulin 2.8 g/dL (1.3-4.6); Glucose 163 mg/dL (65-115); Osmolality Calculated 283 mOsm/kg (285-295); Potassium 4.2 mmol/L (3.5-5.1); Sodium 130 mmol/L (136-145); Total Bilirubin 0.9 mg/dL (0.15-1.2); Total Protein 4.8 g/dL (6.6-8.7)
[2021-01-11] MEDS: diphenhydrAMINE 25 mg Capsule PO (12:00)
[2021-01-11] MEDS: sodium chloride 0.9% 250 ML 999 ML IV (12:00)
[2021-01-11] MEDS: acetaminophen 325 mg Tablet 650 MG PO (12:00)
[2021-01-18 09:32] LABS: Basophils # 0.1 10^3/uL (0.0-0.1); Basophils % 0.6 %; Eosinophils # 0.2 10^3/uL (0.0-0.8); Hematocrit 25.8 % (37.0-47.0); Hemoglobin 8.2 g/dL (11.5-15.3); Lymphocytes # 0.8 10^3/uL (0.8-4.8); Lymphocytes % 9.8 %; Mean Corpuscular HGB Conc 31.8 g/dL (30.0-36.0); Mean Corpuscular Hemoglobin 30.3 pg (28.0-34.0); Mean Corpuscular Volume 95.2 fL (81-99); Mean Platelet Volume 10.6 fL (7.4-10.4); Monocytes # 1.1 10^3/uL (0.2-0.9); Neutrophils # 6.26 10^3/uL (1.8-7.7); Nucleated Red Blood Cells % 0 %; Platelet Count 98 10^3/cmm (130-400); Red Blood Count 2.71 10^6/uL (4.1-5.3); Red Cell Distribution Width 18.7 % (12.1-15.1); White Blood Count 8.5 10^3/uL (4.0-10.0)
[2021-01-18] MEDS: acetaminophen 325 mg Tablet 650 MG PO (10:00)
[2021-01-18] MEDS: diphenhydrAMINE 25 mg Capsule PO (10:00)
--- NOTE | 2021-01-18 10:29 | PC.NURSE ---
Patient has right chest mediport accessed without s/s of complications
[2021-01-18 12:10] VITALS: BP 124/59; PULSE 100; RESP 18; O2SAT 97
[2021-01-18 12:25] VITALS: PULSE 103; RESP 18; TEMP 36.9; O2SAT 98
[2021-01-18 12:40] VITALS: PULSE 100; RESP 20; TEMP 36.8; O2SAT 98
[2021-01-18 13:50] VITALS: BP 133/66; PULSE 104; TEMP 36.8; O2SAT 94
[2021-01-18 14:05] VITALS: BP 116/59; PULSE 94; TEMP 36.8; O2SAT 97
[2021-01-18 14:20] VITALS: PULSE 90; TEMP 36.7; O2SAT 97
== END 2021-01-23 23:59 | disposition home or self-care (01) ==
LOC: ONCMED 05:48
PROVIDERS: PCP Family Medicine; Visit Provider Internal Medicine Medical Oncology
DX: C22.1 Intrahepatic bile duct carcinoma (principal); D62 Acute posthemorrhagic anemia; K72.10 Chronic hepatic failure without coma; K74.69 Other cirrhosis of liver; Z79.899 Other long term (current) drug therapy
CPT/HCPCS: 36415; 36430; 36591; 80053; 82140; 85025; 86850; 86900; 86920; J7050; P9016

== ENCOUNTER 2021-01-22 06:00 | Outpatient (CLI) | payer MEDICARE, BC, SELFPAY ==
[2021-01-22 12:47] LABS: Ammonia 33 umol/L (11-51)
== END 2021-01-22 06:01 | disposition home or self-care (01) ==
LOC: LAB 11-04 14:58
PROVIDERS: PCP Family Medicine; Visit Provider Nurse Practitioner Family
DX: C22.9 Malignant neoplasm of liver, not specified as primary or secondary (principal); D63.0 Anemia in neoplastic disease
CPT/HCPCS: 82140

== ENCOUNTER 2021-01-22 16:02 | Emergency (ER) | payer MEDICARE, BC, SELFPAY ==
[2021-01-22 16:08] VITALS: BP 128/75; PULSE 106; RESP 18; TEMP 36.8; O2SAT 94; BMI 35.7
[2021-01-22 16:18] VITALS: O2SAT 94
--- NOTE | 2021-01-22 16:18 | ED_ITS ---
HPI - GI Bleed General: Chief complaint: GI Bleed Stated complaint: rectal bleeding Time Seen by Provider: 01/22/21 16:18 History of Present Illness: HPI Narrative: 75-year-old female comes in today with complaints of blood in stool. Patient has a history of endometrial cancer with a hysterectomy and BSO, thyroid cancer with thyroidectomy, acquired hypothyroidism, stage IV cholangiocarcinoma, liver cirrhosis with thrombocytopenia, hepatic encephalopathy, ascites, paracentesis done lastly on 31 December with 7000 mL withdrawn, aortic valve replacement, IVC filter, hiatal hernia, history of radiation gastritis. Dr. Cisneros this patient's primary care provider. Last hospitalization was December 24. Patient is confused and a poor historian at this time. She reports that when she was helped up off the toilet the person that was helping her noticed blood in the stool. complaint: blood streaked stool Onset (ago): hour(s) Review of Systems General: Reports: 10 or more systems reviewed and unremarkable except in HPI and below GI: Reports: hematochezia PFSH ED PFSH: Medical History Anemia Cholangiocarcinoma Endometrial cancer Hypothyroid Liver cirrhosis Pneumonia Rotator cuff arthropathy Thyroid cancer Uterine cancer Valvular heart disease Surgical History H/O esophagogastroduodenoscopy (11/19/20) H/O laparoscopy H/O lumpectomy History of hysterectomy History of liver biopsy History of salpingo-oophorectomy History of thyroidectomy, total Hx of cataract surgery Hx of tonsillectomy S/P AVR (aortic valve replacement) Status post colonoscopy (11/19/20) Family History Father Cancer Lung Cancer Brother CAD (coronary artery disease) Social History Smoking and tobacco status: never smoked Second hand smoke exposure: No Smoking risk assessment/counseling performed?: No Alcohol intake: never Counseling given: No Counseling given: No Lives independently: Yes Household members: spouse Marital status: Current gender identity: Female Physical Exam Const: COMMON NORMALS: no acute distress and patient oriented x3 GENERAL APPEARANCE: cooperative HENMT: COMMON NORMALS: normocephalic, TM's normal bilaterally and Normal external nose present HEAD & SCALP: normal to inspection and normocephalic NOSE: Normal external nose present TYMPANIC MEMBRANE: TM's normal bilaterally MOUTH: Normal oral and palatal mucosa present THROAT: posterior oropharynx normal Eye: GENERAL EYE: appearance normal, both eyes and all related structures Neck/C-Spine: COMMON NORMALS: full ROM Lymph: LYMPHATIC: no lymphadenopathy noted Chest: COMMONS NORMALS: normal inspection of the chest Resp: COMMON NORMALS: normal respiratory effort EFFORT & INSPECTION: Yes able to speak in complete sentences Cardio: COMMON NORMALS: regular rate and regular rhythm RATE: regular rate RHYTHM: regular rhythm GI: COMMON NORMALS: non-tender RECTAL EXAM: External hemorrhoid(s) present and tenderness OTHER: Small amount of anum blood was noted to the hemorrhoidal tissue. Back/Pelvis: COMMON NORMALS: thoracic and lumbar spine normal to inspection Extremity: COMMON NORMALS: normal to inspection Neuro: COMMON NORMALS: patient oriented x3 and moves all extremities Psych: COMMON NORMALS: mental status grossly normal and cooperative Skin: COMMON NORMALS: no rashes or lesions noted GENERAL SKIN EXAM: no rashes or lesions noted Course Vital Signs: Vital signs: Vital Signs Temperature 98.3 F 01/22/21 16:08 Pulse Rate 106 H 01/22/21 16:08 Respiratory Rate 18 01/22/21 16:08 Blood Pressure 128/75 01/22/21 16:08 Pulse Oximetry 94 01/22/21 16:18 MDM - GI Bleed MDM Narrative: Medical decision making narrative: 75-year-old female comes in today for concerns of blood in the stool. Patient also has some ascites to the abdomen. On exam abdomen is rotund. Bowel sounds are dull. Respirations are even lungs are clear to auscultation. Heart rates regular. Some mild edema is noted to the lower extremities. Examination of the rectum notes gross external hemorrhoids with a small amount of blood. Patient has dark green stools. Differential diagnosis includes hemorrhoids, GI bleed, ascites. Laboratory values noted hemoglobin hematocrit that was improved from labs done on December 31. We also noted mild decline in sodium to 128 and creatinine at 1.3. Glucose is 205. CT scan noted a large amount of ascites and incidental findings that include esophageal varices and liver abnormalities. Reviewed this with Dr. Perez who recommended patient come back to interventional radiology for paracentesis when available. We will treat patient's hemorrhoids with Proctofoam and refer for paracentesis. Lab Data: Labs: Lab Results 01/22/21 01/22/21 01/22/21 Range/Units 17:35 17:35 17:35 WBC 9.1 (4.0-10.0) 10^3/ uL RBC 3.07 L (4.1-5.3) 10^6/u L Hgb 9.3 L (11.5-15.3) g/dL Hct 28.8 L (37.0-47.0) % MCV 93.8 (81-99) fL MCH 30.3 (28.0-34.0) pg MCHC 32.3 (30.0-36.0) g/dL RDW 18.0 H (12.1-15.1) % Plt Count 74 L (130-400) 10^3/c mm MPV 10.1 (7.4-10.4) fL Neut % (Auto) 76.9 % Lymph % (Auto) 8.1 % [place] % (Auto) 13.3 % Eos % (Auto) 0.8 % Baso % (Auto) 0.4 % Neut # (Auto) 7.02 (1.8-7.7) 10^3/u L Lymph # (Auto) 0.7 L (0.8-4.8) 10^3/u L [place] # (Auto) 1.2 H (0.2-0.9) 10^3/u L Eos # (Auto) 0.1 (0.0-0.8) 10^3/u L Baso # (Auto) 0.0 (0.0-0.1) 10^3/u L Nucleated RBC % (a uto) 0 % Nucleated RBCs # 0.0 /100WBC Sodium 128 L (136-145) mmol/L Potassium 4.0 (3.5-5.1) mmol/L Chloride 94 L (98-107) mmol/L Carbon Dioxide 23 (22-29) mmol/L Anion Gap 15.0 (5-19) BUN 40 H (8-23) mg/dL Creatinine 1.3 H (0.5-0.9) mg/dL GFR Calculation Not Reportable Glucose 205 H (65-115) mg/dL Calculated Osmolal ity 282 L (285-295) mOsm/k g Calcium 7.3 L (8.5-10.5) mg/dL Total Bilirubin 0.9 (0.15-1.2) mg/dL AST 64 H (0-32) U/L ALT 28 (0-33) U/L Alkaline Phosphata se 251 H (35-105) IU/L Ammonia 46 (11-51) umol/L Total Protein 4.6 L (6.6-8.7) g/dL Albumin 2.0 L (3.5-5.2) g/dL Globulin 2.6 (1.3-4.6) g/dL Discharge Plan Discharge Patient Disposition: Home Clinical Impression: Ascites Qualifiers: Ascites type: malignant Qualified Code(s): R18.0 - Malignant ascites Hemorrhoids Qualifiers: Hemorrhoid type: unspecified Qualified Code(s): K64.9 - Unspecified hemorrhoids Condition: Stable Prescriptions: New Proctofoam 1 % foam 1 applic AR BID Qty: 15 RF: 0 No Action furosemide 40 mg tablet 80 mg PO DAILY@0700 RF: 0 ondansetron 8 mg tablet,disintegrating 8 mg PO Q8H PRN (Reason: Nausea) RF: 0 ergocalciferol (vitamin D2) 1,250 mcg (50,000 unit) capsule 50,000 unit PO Q7D RF: 0 [place] Thyroid 180 mg tablet 180 mg PO DAILY@0700 RF: 0 potassium chloride 20 mEq tablet extended release 10 meq PO BID RF: 0 spironolactone 25 mg Tablet 25 mg PO DAILY Qty: 30 RF: 0 pantoprazole 40 mg tablet,delayed release (DR/EC) 40 mg PO BID Qty: 30 RF: 0 pyridoxine (vitamin B6) 25 mg tablet 25 mg PO DAILY Qty: 30 RF: 0 omeprazole 40 mg capsule,delayed release(DR/EC) 40 mg PO DAILY RF: 0 ferrous sulfate 325 mg (65 mg iron) tablet 325 mg PO BID RF: 0 docusate sodium 100 mg capsule 100 mg PO BID RF: 0 lactulose 10 gram/15 mL solution 30 ml feeding tube Q6H RF: 0 diclofenac sodium 1 % gel See Rx Instructions .ROUTE .COMPLEX RF: 0 Xifaxan 550 mg tablet 550 mg PO BID@0700,1900 RF: 0 Discharge Orders: Discharge ED (Routine); Ordered 01/22/21 Ordered By: Blake Cueva Referrals: Phil Cisneros MD [Primary Care Provider] - Discharge Diet: Usual diet Discharge Activity: Increase activity as tolerated Patient Instructions: Ascites (ED), Opioid Safety Activity Restrictions/Additional Instructions: Continue with routine care. Light diet. You will need to follow-up with interventional radiology on Monday for a paracentesis to remove the ascites, fluid in the abdominal cavity. Case management will contact you regarding the appointment. Monitor for fever or worsening bleeding. Return to the ER for any of these concerns. At this time your exam noted a hemorrhoid, CT scan did not indicate any other abnormality except the large amount of ascites and other k nown pathology. 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
--- NOTE | 2021-01-22 16:18 | CTR_ITS ---
PROCEDURE INFORMATION: Exam: CT Abdomen And Pelvis With Contrast Exam date and time: 01/22/2021 4:18 PM Age: 75 years old Clinical indication: Other: Rectal bleeding; Prior surgery; Surgery type: Hyst; Additional info: Rectal bleed TECHNIQUE: Imaging protocol: Computed tomography of the abdomen and pelvis with contrast. Radiation optimization: All CT scans at this facility use at least one of these dose optimization techniques: automated exposure control; mA and/or kV adjustment per patient size (includes targeted exams where dose is matched to clinical indication); or iterative reconstruction. Contrast material: VISI 320; Contrast volume: 95 ml; Contrast route: INTRAVENOUS (IV); COMPARISON: CT abdomen pelvis w con* [id number] 11/17/2020 11:36 AM RADIATION DOSE METRICS: Total DLP (mGy-cm): 2018.53 FINDINGS: Lungs: Mild basilar atelectasis. Pleural spaces: Small left pleural effusion. Liver: Small cirrhotic liver. 3.6 x 1.5 x 1.9 cm hypoechoic subcapsular nodule in the anterior left liver lobe is not significantly changed in size using the same measurement technique. Gallbladder and bile ducts: Normal. No calcified stones. No ductal dilation. Pancreas: Atrophic pancreas. Spleen: Normal. No splenomegaly. Adrenal glands: Normal. No mass. Kidneys and ureters: Cortical lesion in the posterior right kidney is too small to characterize but is most likely a cyst and is unchanged. No follow-up imaging is recommended. The left kidney is normal. Stomach and bowel: Small duodenal diverticulum. Mild diverticulosis of the colon. The stomach and small bowel are unremarkable. Appendix: The appendix is not visualized. No secondary signs of appendicitis. Intraperitoneal space: Massive ascites. Vasculature: Portal venous hypertension with gastroesophageal varices, recanalized umbilical vein. Arterial calcifications. No aneurysm. Arteries: Aortic valve prosthesis. Lymph nodes: Unremarkable. No enlarged lymph nodes. Urinary bladder: Unremarkable as visualized. Reproductive: The uterus and ovaries are absent. Bones/joints: Curvature and degenerative changes of the spine. No fracture identified. Median sternotomy changes. Benign bone island in the right femoral head. Soft tissues: Severe diffuse body wall edema. Small umbilical hernia containing ascites. CT/CT abdomen pelvis w con* [id number] IMPRESSION: 1. Cirrhotic liver with stable 3.6 cm left liver lobe nodule. Primary liver malignancy is not excluded. Consider further evaluation with liver MRI. 2. Portal venous hypertension with gastroesophageal varices. 3. Massive ascites. 4. Severe body wall edema. 5. Small left pleural effusion. COMMENTS: Consistent with the [employer]'s Incidental Findings Committee white paper (J Am Divya Radiol 2018): Any incidental renal lesion less than 1 cm or classified as too small to characterize, or any incidental cystic renal lesion characterized as simple-appearing, is likely benign. No follow-up imaging is recommended for these lesions per consensus recommendations based on imaging criteria. Radiation Dose CTDIVOL = (mGy): DLP = 2018.53 (mGy-cm)
[2021-01-22] MEDS: iodixanol 320 mg/mL 100mL Btl IV (16:54)
[2021-01-22 17:47] LABS: Basophils % 0.4 %; Eosinophils # 0.1 10^3/uL (0.0-0.8); Eosinophils % 0.8 %; Hematocrit 28.8 % (37.0-47.0); Hemoglobin 9.3 g/dL (11.5-15.3); Lymphocytes # 0.7 10^3/uL (0.8-4.8); Lymphocytes % 8.1 %; Mean Corpuscular HGB Conc 32.3 g/dL (30.0-36.0); Mean Corpuscular Hemoglobin 30.3 pg (28.0-34.0); Mean Corpuscular Volume 93.8 fL (81-99); Mean Platelet Volume 10.1 fL (7.4-10.4); Monocytes # 1.2 10^3/uL (0.2-0.9); Monocytes % 13.3 %; Neutrophils # 7.02 10^3/uL (1.8-7.7); Neutrophils % 76.9 %; Nucleated Red Blood Cells % 0 %; Platelet Count 74 10^3/cmm (130-400); Red Blood Count 3.07 10^6/uL (4.1-5.3); White Blood Count 9.1 10^3/uL (4.0-10.0)
[2021-01-22 18:08] LABS: Alanine Aminotransferase 28 U/L (0-33); Alkaline Phosphatase 251 IU/L (35-105); Ammonia 46 umol/L (11-51); Aspartate Amino Transferase 64 U/L (0-32); Blood Urea Nitrogen 40 mg/dL (8-23); Calcium 7.3 mg/dL (8.5-10.5); Carbon Dioxide 23 mmol/L (22-29); Chloride 94 mmol/L (98-107); Globulin 2.6 g/dL (1.3-4.6); Glucose 205 mg/dL (65-115); Osmolality Calculated 282 mOsm/kg (285-295); Sodium 128 mmol/L (136-145); Total Bilirubin 0.9 mg/dL (0.15-1.2); Total Protein 4.6 g/dL (6.6-8.7)
[2021-01-22 18:43] VITALS: BP 109/67; PULSE 95; RESP 17; O2SAT 94
--- NOTE | 2021-01-26 09:19 | DCPLANNER ---
development system efficiency manager had message to schedule an outpatient paracentesis for patient. Patient already has the procedure scheduled for 01.27.21 ordered from another provider.
== END 2021-01-22 19:48 | disposition home or self-care (01) ==
PROVIDERS: Emergency Provider Nurse Practitioner Family; PCP Family Medicine
DX: K64.4 Residual hemorrhoidal skin tags (principal); R18.0 Malignant ascites; E89.0 Postprocedural hypothyroidism; Z85.42 Personal history of malignant neoplasm of other parts of uterus; Z95.2 Presence of prosthetic heart valve; Z90.710 Acquired absence of both cervix and uterus
CPT/HCPCS: 74177; 80053; 82140; 85025; 99283; Q9967

== ENCOUNTER 2021-01-26 08:04 | Outpatient (RCR) | payer MEDICARE, BC, SELFPAY ==
[2021-01-26 09:12] LABS: Hematocrit 26.1 % (37.0-47.0); Hemoglobin 8.4 g/dL (11.5-15.3); Mean Corpuscular HGB Conc 32.2 g/dL (30.0-36.0); Mean Corpuscular Hemoglobin 30.5 pg (28.0-34.0); Mean Corpuscular Volume 94.9 fL (81-99); Mean Platelet Volume 10.3 fL (7.4-10.4); Platelet Count 71 10^3/cmm (130-400); Red Blood Count 2.75 10^6/uL (4.1-5.3); Red Cell Distribution Width 18.8 % (12.1-15.1); White Blood Count 27.4 10^3/uL (4.0-10.0)
[2021-01-26 09:23] LABS: Ammonia 81 umol/L (11-51)
[2021-01-26 09:31] LABS: Alanine Aminotransferase 29 U/L (0-33); Alkaline Phosphatase 248 IU/L (35-105); Anion Gap 17.5 (5-19); Aspartate Amino Transferase 61 U/L (0-32); Blood Urea Nitrogen 61 mg/dL (8-23); Calcium 7.4 mg/dL (8.5-10.5); Carbon Dioxide 20 mmol/L (22-29); Chloride 90 mmol/L (98-107); Globulin 2.6 g/dL (1.3-4.6); Glucose 165 mg/dL (65-115); Osmolality Calculated 277 mOsm/kg (285-295); Potassium 4.5 mmol/L (3.5-5.1); Sodium 123 mmol/L (136-145); Total Bilirubin 0.9 mg/dL (0.15-1.2); Total Protein 4.6 g/dL (6.6-8.7)
--- NOTE | 2021-01-26 09:51 | ONC FU_ITS ---
Dr. Hall Patient Follow-Up Note Patient: Lexie Sylvester Unit #: [id number]: 1945 Dicatated By: Gabe Hall M.D.Date of Visit:Jan 26, 2021 Onc Med Follow-up/Prog Note Chief Complaint: Cholangiocarcinoma. 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 She has previously been treated for endometrial cancer and for thyroid cancer. In October 2019 she had presented to the emergency room with jaundice. Her initial CT scan showed an ill-defined inhomogeneous hypodense mass in the left lobe of the liver measuring 5.8 cm. There is mild intrahepatic ductal dilatation. Her ERCP showed no definite filling defects in the bile ducts. Abdominal MRI showed infiltrative mass in the left lobe of the liver measuring 8.1 x 5.5 cm. It was noted to be contiguous with the anterior gallbladder wall. There was marked hepatomegaly with nodular hepatic contour suggesting underlying cirrhosis. There was markedly dilated left sided intrahepatic bile ducts measuring up to 1.1 cm in diameter. Needle biopsy of the liver on 11/20/2019 showed cirrhosis with marked bile ductular proliferation and neutrophilic inflammation. There was no malignancy identified. She had further evaluation at [facility] where she underwent diagnostic laparoscopy with multiple liver biopsies on 12/03/2019. She was noted to have a mass involving segment 4 of the liver in a background of liver cirrhosis. Pathology on the liver mass showed poorly differentiated adenocarcinoma. Pathology on biopsies from the right lobe of the liver showed bridging fibrosis. Overall, the findings were felt to be consistent with cholangiocarcinoma with underlying liver cirrhosis. On 12/09/2019 she had medical oncology consultation with Dr. Jose Luis Lopez, following which she began a course of treatment with cisplatin/gemcitabine. A repeat MRI on 02/17/2020, following completion of 3 cycles of chemotherapy, showed stable disease. She then sought treatment at [facility] in [place], [place]. She subsequently began second line chemotherapy with a modified FOLFOX regimen. During her further follow-up she did require some treatment delays and dose reductions due to cytopenias, but she did show some response to the FOLFOX chemotherapy. Her most recent FOLFOX cycle began on 07/07/2020. She then returned to [facility] where she underwent radiation concurrently with capecitabine for chemosensitization. She completed radiation on 08/26/2020. Total dose was 6000 cGy to the abdomen (liver) administered in 15 fractions and 6000 cGy to an upper pelvic lymph node, also administered in 15 fractions. She returned to see Dr. Lopez on 09/14/2020. At that point she was having fever, cough, and shortness of breath. Her CT pulmonary angiogram showed no evidence of pulmonary thromboembolism. There were scattered patchy infiltrates primarily involving the upper lobes with a peripheral distribution. Similar changes were noted to a lesser extent within the lung bases, right greater than left. There was no associated adenopathy. The findings appeared most compatible with underlying pneumonia. She began on empiric antibiotic coverage with Levaquin. She was seen here initially on 09/25/2020, as she desired to try and received at least some of her follow-up care locally. At that point she still had very marginal performance status, but she was beginning to show some recovery. Subsequent to that visit, she did see Dr. Bermeo for pulmonary consultation. On 10/31/2020 she was admitted to [facility] after presenting to our emergency room with altered mental status. Approximately 1 week earlier she had been diagnosed with bilateral lower extremity deep vein thrombosis, for which she had been started on anticoagulation with apixaban. She was determined to have hepatic encephalopathy in association with acute GI bleeding. Her ammonia level was significantly elevated at 154 ???mol/L. CT of the chest showed no evidence of pulmonary embolism, and there were no acute pulmonary infiltrates. The liver showed findings consistent with cirrhosis. There was no evidence of mass lesions in the liver and there was no evidence of metastatic disease in the abdomen/pelvis. During that hospitalization at [facility] she underwent EGD. She was found to have areas of diffuse oozing from the gastric antral mucosa which were cauterized. Also noted were nonbleeding gastric ulcers. She was taken off apixan, and she underwent placement of an inferior vena cava filter. She was discharged home on a treatment regimen which included lactulose and rifaximin. She also was on Protonix 40 mg twice daily. She was seen her for followup on 11/10/2020. Her hemoglobin was low at 7.5 g. Her ammonia level was mildly elevated at 47 ???mol/L. She was given a PRBC transfusion. Her repeat CBC on 11/13/2020 showed adequate hemoglobin 9.4 g. During that time she also had a stool FIT, which was positive. During subsequent follow-up here she remained transfusion dependent. Her repeat CT abdomen/pelvis on 11/17/2020 showed markedly shrunken liver with nodular surface, consistent with cirrhosis. There was an area of decreased attenuation with some very mild peripheral enhancement involving the medial segment left lobe of the liver measuring 2.6 x 2.2 cm. There was an additional surface area of decreased attenuation along the anterior right lobe of the liver. The appearance was suggestive of possible recurrent neoplasm. There was a large amount of ascites and there was evidence of marked anasarca, but there were peritoneal implants or other evidence of metastatic disease. She then underwent EGD and colonoscopy on 11/19/2020. The colonoscopy showed grade 4 hemorrhoids and there were small patches of mucosal erythema in the transverse colon, felt to be likely secondary to radiation. There is no active bleeding. The EGD showed gastritis involving the entire antrum and pylorus, felt to be likely secondary to radiation. With those findings, she continued medical management and transfusion support. On 01/23/2020 when she was seen in the emergency room with increasing fluid retention and ascites. Her CT abdomen/pelvis showed cirrhotic appearing liver with stable left hepatic lobe nodule measuring 3.6 cm. There was associated portal venous hypertension with gastroesophageal varices and there was massive ascites as well as severe body wall edema. She was noted to have some flecks of red blood in the stool, but her hemoglobin was adequate at 9.3 g. Her renal function was borderline but stable with BUN 40 and creatinine 1.3 mg/dL. They were not able to accommodate her for a paracentesis procedure. She was discharged home on 80 mg of furosemide together with 25 mg of spironolactone daily. She was prescribed Proctofoam for hemorrhoids. She is seen for a follow-up visit. She has been getting weaker, to the point that she can barely get up to the bathroom. She also has had falls at home. It has become increasingly difficult for her to get here for appointments. Her ECOG score is 3. Her appetite has not been good lately. She does not have fever or night sweats. He says it is sometimes hard for her to swallow. She has shortness of breath, and she does have oxygen available to use as needed. She does not complain of cough and she has not been having chest pain. She has been having more nausea, but it is adequately managed with Zofran. She continues to have some acid reflux. Her stools are loose with the lactulose, currently dosed at 30 mL 4 times daily. Bladder function remains adequate. Lately she has been having back pain. She does not complain of headache or dizziness, and she has no focal neurologic symptoms. Medications: [place] Thyroid 1 (120 mg) Tablet Oral daily, B Complex 50 1 Tablet Oral daily, [employer] Fish Oil 1 Capsule (of 1000 mg) Oral daily, Docusate Sodium 1 Tablet (of 100 mg) Oral b.i.d. PRN, Furosemide 1 Tablet (of 40 mg) Oral daily, HYDROcodone-Acetaminophen 1 Tablet (of 5-325 mg) Oral four times a day PRN, K-Tab 1 (20 meq) Tablet, controlled release Oral b.i.d., Lactulose 30 mL (of 10 g/15mL) Solution Oral q 6 hours PRN, Mometasone Furoate 1 Applicator (of 0.1 %) Cream Topical daily PRN, oxyCODONE HCl 1 - 2 Tablet (of 10 mg) Oral q 4 hours, Pantoprazole Sodium 1 Tablet (of 40 mg) Tablet, enteric coated Oral b.i.d., Xifaxan 1 Tablet (of 550 mg) Oral b.i.d. Allergies: oxyCODONE HCl and traMADol HCl. Vital Signs: Blood pressure is 99/65, pulse 99, respirations 18, temp 98.4 degrees, and oxygen saturation 98%. Physical Examination: Constitutional - She appears very weak generally, Eyes - Sclerae nonicteric. Conjunctivae clear, ENMT - No lesions noted in the oral cavity, Hematologic/Lymphatic - No cervical, clavicular, or axillary adenopathy, Respiratory - Lungs sound clear, Cardiovascular - Heart rhythm is irregular. There is a II/ systolic murmur. There is no gallop or rub noted, Abdomen - Distended with obvious ascites. Liver does not appear enlarged. Spleen is not palpable. There is no abdominal mass noted and there is no inguinal adenopathy noted, Extremities - There is mild lower extremity edema. There are multiple purpuric lesions on the arms, Neurologic - No focal neurologic deficits noted. Lab/Imaging: Her CBC is pending. Comprehensive metabolic profile shows further decline in the renal function with BUN 61 and creatinine 2.0 mg/dL. Potassium is in the upper normal range at 4.5 mmol/L. Problem List: 1. Intrahepatic cholangiocarcinoma, stage IV, initially diagnosed in November 2019. 2. There was evidence of underlying liver cirrhosis by MRI and by liver biopsy. 3. She was diagnosed with bilateral lower extremity deep vein thrombosis in October 2020. 4. She underwent total thyroidectomy and radioactive iodine ablation for thyroid cancer in 2010. She has subsequent hypothyroidism. 5. She had previous hysterectomy/bilateral salpingo-oophorectomy for endometrial cancer. 6. She has history of valvular heart disease for which she underwent bioprosthetic aortic valve replacement in 2013. Problems Addressed with this Encounter and Plan: 1. Patient with intrahepatic cholangiocarcinoma, stage IV, initially diagnosed in November 2019. She had treatment with cisplatin/gemcitabine chemotherapy from November through January 2020 with a follow-up MRI showing stable disease. On 02/25/2020 she began second line chemotherapy with modified FOLFOX. During subsequent followup she required dose reductions and treatment delays for cytopenias, but she did show evidence of response. Her most recent chemotherapy cycle began on 07/07/2020. She then underwent radiation concurrently with capecitabine chemotherapy at [facility] [place] from 08/03/2020 through 08/26/2020, total dose 6000 cGy to the abdomen (liver) administered in 15 fractions and 6000 cGy to an upper pelvic lymph node, also administered in 15 fractions. During subsequent follow-up she had persistent fever and she had very marginal performance status. Her CT scans of the chest, abdomen, and pelvis on 10/31/2020 showed no evidence of residual, recurrent, or metastatic disease. Her repeat CT abdomen/pelvis on 11/17/2020 did show a hypoechoic mass with minimal peripheral enhancement in the medial segment left lower lobe, suggestive of possible recurrent neoplasm. There was an additional low-attenuation nodule along the anterior surface of the right lobe of the liver. There was no obvious metastatic disease. Thus far she has had no further treatment. Her recent CT scan continue to show stable left hepatic lobe nodule. As such, she continues on expectant management for the cholangiocarcinoma. 2. She was found to have underlying cirrhosis by MRI and by liver biopsy. She has associated hepatic encephalopathy and she has recurrent ascites. Management of the ascites has been problematic due to relatively low blood pressure and to very marginal renal function. Recently there has been a significant decline in her performance status, and it has become increasingly difficult for her to get her for appointments. After discussion with the patient and family, she is going to see Dr. Billy now for consideration of placement of intraperitoneal catheter, as we will begin the process of transitioning her to palliative care. With the further decline in her renal function, I will have her stop the spironolactone and the potassium supplement. 3. She was diagnosed with bilateral lower extremity deep vein thrombosis in October 2020. She initially began on anticoagulation with apixaban. It was stopped as of 10/31/2020 when she was hospitalized with hepatic encephalopathy in association with acute GI bleeding. She has since then remained off anticoagulation, thus far with no evidence of any further thromboembolism. 4. 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 By EGD, it appears to be due to gastritis secondary to her radiation. She has continued on medical management for the gastritis, and she is being transfused as needed. Signed By: Gabe Hall M.D. <<Signature on File>>
[2021-01-26 10:28] LABS: Slide Review Slide Review Perform
[2021-01-26 10:52] LABS: Absolute Neutrophil 26.3 10^3/cmm (1.4-6.5); Absolute Segmented Neutrophil 21.1 10/cmm (1.6-7.1); Band Neutrophils Absolute 5.2 10^3/cmm (0.0-1.2); Eosinophils 0 %; Lymphocytes 1 %; Lymphocytes Absolute 1.1 10^3/cmm (1.2-3.4); Platelet Estimate Decreased (Normal); Segmented Neutrophils 77 %; Total Cells Counted 100 (0-100)
[2021-01-26 10:53] LABS: Anisocytosis Trace; Burr Cells 1+
[2021-01-26 10:54] LABS: Ovalocytes Trace; Tear Drop Cells Trace
[2021-01-26 12:16] LABS: INR 1.41 (0.8-1.2)
[2021-01-26 13:23] VITALS: BP 99/53; PULSE 92; RESP 22; TEMP 36.8; O2SAT 98
[2021-01-26 13:38] VITALS: BP 107/53; PULSE 94; TEMP 36.4; O2SAT 97
[2021-01-26 14:08] VITALS: BP 100/54; PULSE 90; TEMP 36.3; O2SAT 97
[2021-01-26 15:47] VITALS: BP 98/54; PULSE 92; RESP 20; TEMP 36.3
== END 2021-01-26 16:50 | disposition home or self-care (01) ==
LOC: ONCMED 08:04
PROVIDERS: PCP Family Medicine; Visit Provider Internal Medicine Medical Oncology
DX: C22.1 Intrahepatic bile duct carcinoma (principal); D62 Acute posthemorrhagic anemia; K72.10 Chronic hepatic failure without coma; K74.69 Other cirrhosis of liver; E03.9 Hypothyroidism, unspecified; Z95.2 Presence of prosthetic heart valve; Z86.718 Personal history of other venous thrombosis and embolism; Z85.42 Personal history of malignant neoplasm of other parts of uterus; Z90.710 Acquired absence of both cervix and uterus; Z79.899 Other long term (current) drug therapy; Z92.21 Personal history of antineoplastic chemotherapy
CPT/HCPCS: 36415; 36430; 80053; 82140; 85007; 85025; 85610; 86850; 86900; 86920; 87040; 87205; 87635; 96365; 99215; P9016

== ENCOUNTER 2021-01-26 16:53 | Inpatient (IN) | payer MEDICARE, BC, SELFPAY ==
[2021-01-26 17:07] VITALS: BP 106/67; PULSE 96; RESP 16; TEMP 36.4; O2SAT 92; BMI 36.8
[2021-01-26 17:14] VITALS: BP 111/84; PULSE 105; O2SAT 97
--- NOTE | 2021-01-26 17:15 | PC.NURSE ---
PT IS NOT ACTUALLY ALLERGIC TO OXYCODONE AND TRAMADOL, THEY JUST MAKE HER NAUSEOUS BUT SHE CAN TAKE THEM.
[2021-01-26 18:35] VITALS: BP 144/60; PULSE 104; RESP 30; O2SAT 97
--- NOTE | 2021-01-26 18:37 | XRR_ITS ---
PROCEDURE INFORMATION: Exam: XR Chest Exam date and time: 01/26/2021 6:37 PM Age: 75 years old Clinical indication: Other: Weak; Additional info: Weakness TECHNIQUE: Imaging protocol: XR of the chest. Views: 1 view. COMPARISON: CR XR chest 1V portable [id number] 10/31/2020 1:33 PM FINDINGS: Tubes, catheters and devices: Right IJ Port-A-Cath is stable in position with the tip in the SVC. Lungs: Decreased inspiration with bilateral lower lobe patchy atelectasis. Pleural spaces: Small bilateral pleural effusions. Heart/Mediastinum: Stable mild enlargement of the cardiac silhouette. Mediastinal contours are unremarkable. Bones/joints: Bones are diffusely osteopenic. Degenerative changes in the spine and shoulders. Osseous findings are stable. XR/XR chest 1V portable [id number] IMPRESSION: 1. Decreased inspiration with bilateral lower lobe patchy atelectasis. 2. Small bilateral pleural effusions. 3. Incidental/nonacute findings are listed in the report.
--- NOTE | 2021-01-26 18:38 | ECG_ITS ---
[facility] ED Test Date: 2021-01-26 Pat Name: Lexie Sylvester Department: Room: Gender: Female Underwriting Clerk: : 1945 Requested By: Brenda Webb Order Number: [id number] Morgan MD: Sade Barraza M.D. Measurements Intervals [place] Rate: 104 P: 36 MT: 150 QRS: -32 QRSD: 120 T: 67 QT: 325 QTc: 429 Interpretive Statements SINUS TACHYCARDIA WITH OCCASIONAL SUPRAVENTRICULAR PREMATURE COMPLEXES MARKED LEFT AXIS DEVIATION [QRS AXIS < -30] ANTEROSEPTAL MYOCARDIAL INFARCTION [40+ ms Q WAVE IN V1-V4], OF INDETERMINATE AGE Compared to ECG 12/30/2020 11:50:38 Sinus rhythm no longer present Sinus arrhythmia no longer present Myocardial infarct finding still present Electronically Signed On 01-27-2021 20:33:34 CDT by Sade Barraza M.D. [id number]
[2021-01-26 18:40] LABS: Add Urine Microscopic? NO; Charge for UA Resulting for Rev
[2021-01-26 18:43] LABS: Basophils # 0.2 10^3/uL (0.0-0.1); Basophils % 0.6 %; Eosinophils % 0.1 %; Hematocrit 30.8 % (37.0-47.0); Hemoglobin 10.1 g/dL (11.5-15.3); Lymphocytes # 0.9 10^3/uL (0.8-4.8); Lymphocytes % 3.2 %; Mean Corpuscular HGB Conc 32.8 g/dL (30.0-36.0); Mean Corpuscular Hemoglobin 30.4 pg (28.0-34.0); Mean Corpuscular Volume 92.8 fL (81-99); Mean Platelet Volume 11.8 fL (7.4-10.4); Monocytes # 1.5 10^3/uL (0.2-0.9); Monocytes % 5.1 %; Neutrophils # 26.01 10^3/uL (1.8-7.7); Neutrophils % 89.5 %; Nucleated Red Blood Cells % 0 %; Platelet Count 83 10^3/cmm (130-400); Red Blood Count 3.32 10^6/uL (4.1-5.3); Red Cell Distribution Width 18.2 % (12.1-15.1); White Blood Count 29.1 10^3/uL (4.0-10.0)
--- NOTE | 2021-01-26 18:57 | W.ED.WEAKNES ---
HPI - Weakness General: Chief complaint: Weakness Stated complaint: Septic/Renal Failure/Liver Failure/Sent by Rafael Time Seen by Provider: 01/26/21 17:57 Source: patient Mode of arrival: ambulatory Limitations: no limitations History of Present Illness: HPI Narrative: 75-year-old female who has a history of liver cancer along with liver cirrhosis. Patient receives chemo and radiation has had chronic GI bleeds from this as well. She follows Dr. Hall had a blood transfusion today. States she has had increasing weakness and not feeling well. Blood draw there showed a white count of 29 and concerns that she is septic. Patient was sent here by Dr. Hall for this elevated blood count. She is also had an elevated creatinine as well. She has had some confusion as well. She takes lactulose daily for her cirrhosis her ammonia was in the 80s at the office. Denies any recent fever. Associated symptoms: Denies chest pain, chills, dysuria, easy bruising, fever(s), headache(s), nausea or vomiting Review of Systems Const: Reports: fatigue; Denies: fever(s), chills, body aches or change in appetite Eyes: Denies: blurry vision or eye discomfort ENMT: Denies: throat pain or dental pain Card: Denies: chest pain Resp: Denies: dyspnea GI: Denies: abdominal pain, nausea, vomiting or diarrhea : Denies: dysuria Musc: Denies: neck pain or back pain Skin/Breast: Denies: rash Neuro: Denies: headache(s) Psych: Denies: depression Александр/Lymph: Denies: easy bruising All/Imm: Denies: urticaria PFSH ED PFSH: Medical History (Updated 01/26/21 @ 21:55 by Brenda Webb MD) 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 candidate of AC Cholangiocarcinoma DVT (deep venous thrombosis) b/l dvt november 13 Endometrial cancer Fracture of right scapula Hemorrhoids History of abdominal paracentesis Hypothyroid Liver cirrhosis Pneumonia Presence of IVC filter Rotator cuff arthropathy Thyroid cancer Uterine cancer Valvular heart disease Surgical History (Updated 01/26/21 @ 21:54 by Bharati Brown MD) Bioprosthetic aortic valve replacement during current hospitalization 2013 H/O esophagogastroduodenoscopy (11/19/20) H/O laparoscopy H/O lumpectomy History of hysterectomy History of liver biopsy History of salpingo-oophorectomy History of thyroidectomy, total Hx of cataract surgery Hx of tonsillectomy S/P AVR (aortic valve replacement) S/P IVC filter Has been removed. Status post colonoscopy (11/19/20) Family History Father Cancer Lung Cancer Brother CAD (coronary artery disease) Social History Smoking and tobacco status: never smoked Second hand smoke exposure: No Smoking risk assessment/counseling performed?: No Alcohol intake: never Counseling given: No Counseling given: No Lives independently: Yes Household members: spouse Marital status: Current gender identity: Female Physical Exam Const: COMMON NORMALS: patient oriented x3 GENERAL APPEARANCE: ill appearing HENMT: COMMON NORMALS: normocephalic and atraumatic HEAD & SCALP: normocephalic and atraumatic Eye: COMMON NORMALS: Equal, round and reactive pupils present and EOMs intact bilaterally PUPIL: Yes Equal, round and reactive pupils present Neck/C-Spine: COMMON NORMALS: full ROM and supple Chest: COMMONS NORMALS: normal inspection of the chest and normal palpation of entire chest wall Resp: COMMON NORMALS: normal respiratory effort, No retractions, No use of accessory muscles and clear to auscultation bilaterally AUSCULTATION: clear to auscultation bilaterally Cardio: COMMON NORMALS: regular rate, regular rhythm and No murmurs present (Cardio) RATE: regular rate RHYTHM: regular rhythm GI: COMMON NORMALS: Normal to inspection, nondistended, normoactive bowel sounds present, Soft to palpation, non-tender and no masses PALPATION: Yes Soft to palpation Extremity: COMMON NORMALS: normal to inspection and full ROM NARRATIVE EXTREMITY EXAM: 2+edema Neuro: COMMON NORMALS: patient oriented x3, moves all extremities and no focal motor deficits Psych: COMMON NORMALS: mental status grossly normal, Normal thought process present and cooperative THOUGHT PROCESS: Normal thought process present Skin: COMMON NORMALS: no rashes or lesions noted and no wounds GENERAL SKIN EXAM: no rashes or lesions noted Course Vital Signs: Vital signs: Vital Signs Temperature 97.5 F L 01/26/21 17:07 Pulse Rate 98 01/26/21 20:47 Respiratory Rate 23 H 01/26/21 20:47 Blood Pressure 96/61 01/26/21 20:47 Pulse Oximetry 99 01/26/21 20:47 MDM - Weakness MDM Narrative: Medical decision making narrative: Patient presents here with elevated white count likely sepsis. No definite source is found here in the ER. Blood cultures pending. Patient started on IV antibiotics along with IV fluids. Patient's vital signs here been stable. I spoke to the hospitalist and will admit. Lab Data: Labs: Lab Results 01/26/21 01/26/21 01/26/21 Range/Units 18:25 18:25 18:25 WBC 29.1 H (4.0-10.0) 10^3/ uL RBC 3.32 L (4.1-5.3) 10^6/u L Hgb 10.1 L (11.5-15.3) g/dL Hct 30.8 L (37.0-47.0) % MCV 92.8 (81-99) fL MCH 30.4 (28.0-34.0) pg MCHC 32.8 (30.0-36.0) g/dL RDW 18.2 H (12.1-15.1) % Plt Count 83 L (130-400) 10^3/c mm MPV 11.8 H (7.4-10.4) fL Neut % (Auto) 89.5 % Lymph % (Auto) 3.2 % [place] % (Auto) 5.1 % Eos % (Auto) 0.1 % Baso % (Auto) 0.6 % Neut # (Auto) 26.01 H (1.8-7.7) 10^3/u L Lymph # (Auto) 0.9 (0.8-4.8) 10^3/u L [place] # (Auto) 1.5 H (0.2-0.9) 10^3/u L Eos # (Auto) 0.0 (0.0-0.8) 10^3/u L Baso # (Auto) 0.2 H (0.0-0.1) 10^3/u L Nucleated RBC % (a uto) 0 % Nucleated RBCs # 0.0 /100WBC Sodium 130 L (136-145) mmol/L Potassium 4.9 (3.5-5.1) mmol/L Chloride 94 L (98-107) mmol/L Carbon Dioxide 22 (22-29) mmol/L Anion Gap 18.9 (5-19) BUN 67 H (8-23) mg/dL Creatinine 2.0 H (0.5-0.9) mg/dL GFR Calculation Not Reportable Glucose 156 H (65-115) mg/dL Calculated Osmolal ity 293 (285-295) mOsm/k g Lactic Acid 3.0 H (0.5-2.2) mmol/L Calcium 7.6 L (8.5-10.5) mg/dL Total Bilirubin 1.5 H (0.15-1.2) mg/dL AST 68 H (0-32) U/L ALT 33 (0-33) U/L Alkaline Phosphata se 271 H (35-105) IU/L Ammonia (11-51) umol/L Creatine Kinase 146 (26-192) U/L NT-Pro-B Natriuret Pep (0-125) pg/mL Total Protein 4.8 L (6.6-8.7) g/dL Albumin 2.1 L (3.5-5.2) g/dL Globulin 2.7 (1.3-4.6) g/dL Lipase 10 L (13-60) U/L Urine Color (Yellow) Urine Appearance (CLEAR) Urine pH (5-7) Ur Specific Gravit y (1.005-1.030) Urine Protein (Negative) Urine Glucose (UA) (Normal) Urine Ketones (Negative) Urine Blood (Negative) Urine Nitrate (Negative) Urine Bilirubin Urine Urobilinogen (Negative) mg/dL Ur Leukocyte Yolanda ase (Negative) SARS-CoV-2 Ag (Rap id) (Negative) 01/26/21 01/26/21 01/26/21 Range/Units 18:25 19:48 19:48 WBC (4.0-10.0) 10^3/ uL RBC (4.1-5.3) 10^6/u L Hgb (11.5-15.3) g/dL Hct (37.0-47.0) % MCV (81-99) fL MCH (28.0-34.0) pg MCHC (30.0-36.0) g/dL RDW (12.1-15.1) % Plt Count (130-400) 10^3/c mm MPV (7.4-10.4) fL Neut % (Auto) % Lymph % (Auto) % [place] % (Auto) % Eos % (Auto) % Baso % (Auto) % Neut # (Auto) (1.8-7.7) 10^3/u L Lymph # (Auto) (0.8-4.8) 10^3/u L [place] # (Auto) (0.2-0.9) 10^3/u L Eos # (Auto) (0.0-0.8) 10^3/u L Baso # (Auto) (0.0-0.1) 10^3/u L Nucleated RBC % (a uto) % Nucleated RBCs # /100WBC Sodium (136-145) mmol/L Potassium (3.5-5.1) mmol/L Chloride (98-107) mmol/L Carbon Dioxide (22-29) mmol/L Anion Gap (5-19) BUN (8-23) mg/dL Creatinine (0.5-0.9) mg/dL GFR Calculation Glucose (65-115) mg/dL Calculated Osmolal ity (285-295) mOsm/k g Lactic Acid (0.5-2.2) mmol/L Calcium (8.5-10.5) mg/dL Total Bilirubin (0.15-1.2) mg/dL AST (0-32) U/L ALT (0-33) U/L Alkaline Phosphata se (35-105) IU/L Ammonia 56 H (11-51) umol/L Creatine Kinase (26-192) U/L NT-Pro-B Natriuret Pep 4771 H (0-125) pg/mL Total Protein (6.6-8.7) g/dL Albumin (3.5-5.2) g/dL Globulin (1.3-4.6) g/dL Lipase (13-60) U/L Urine Color Yellow (Yellow) Urine Appearance Clear (CLEAR) Urine pH 5 (5-7) Ur Specific Gravit y 1.020 (1.005-1.030) Urine Protein Neg (Negative) Urine Glucose (UA) Norm (Normal) Urine Ketones Negative (Negative) Urine Blood Neg (Negative) Urine Nitrate Negative (Negative) Urine Bilirubin Not Reportable Urine Urobilinogen Norm (Negative) mg/dL Ur Leukocyte Yolanda ase Negative (Negative) SARS-CoV-2 Ag (Rap id) (Negative) 01/26/21 Range/Units 20:30 WBC (4.0-10.0) 10^3/ uL RBC (4.1-5.3) 10^6/u L Hgb (11.5-15.3) g/dL Hct (37.0-47.0) % MCV (81-99) fL MCH (28.0-34.0) pg MCHC (30.0-36.0) g/dL RDW (12.1-15.1) % Plt Count (130-400) 10^3/c mm MPV (7.4-10.4) fL Neut % (Auto) % Lymph % (Auto) % [place] % (Auto) % Eos % (Auto) % Baso % (Auto) % Neut # (Auto) (1.8-7.7) 10^3/u L Lymph # (Auto) (0.8-4.8) 10^3/u L [place] # (Auto) (0.2-0.9) 10^3/u L Eos # (Auto) (0.0-0.8) 10^3/u L Baso # (Auto) (0.0-0.1) 10^3/u L Nucleated RBC % (a uto) % Nucleated RBCs # /100WBC Sodium (136-145) mmol/L Potassium (3.5-5.1) mmol/L Chloride (98-107) mmol/L Carbon Dioxide (22-29) mmol/L Anion Gap (5-19) BUN (8-23) mg/dL Creatinine (0.5-0.9) mg/dL GFR Calculation Glucose (65-115) mg/dL Calculated Osmolal ity (285-295) mOsm/k g Lactic Acid (0.5-2.2) mmol/L Calcium (8.5-10.5) mg/dL Total Bilirubin (0.15-1.2) mg/dL AST (0-32) U/L ALT (0-33) U/L Alkaline Phosphata se (35-105) IU/L Ammonia (11-51) umol/L Creatine Kinase (26-192) U/L NT-Pro-B Natriuret Pep (0-125) pg/mL Total Protein (6.6-8.7) g/dL Albumin (3.5-5.2) g/dL Globulin (1.3-4.6) g/dL Lipase (13-60) U/L Urine Color (Yellow) Urine Appearance (CLEAR) Urine pH (5-7) Ur Specific Gravit y (1.005-1.030) Urine Protein (Negative) Urine Glucose (UA) (Normal) Urine Ketones (Negative) Urine Blood (Negative) Urine Nitrate (Negative) Urine Bilirubin Urine Urobilinogen (Negative) mg/dL Ur Leukocyte Yolanda ase (Negative) SARS-CoV-2 Ag (Rap id) Negative (Negative) Imaging Data^: CXR: Attestation: I personally reviewed and interpreted this imaging study as follows: Radiologist's impression: [place] [address] XRay Report Signed Patient: Lexie Sylvester Unit #: [id number] : 1945 Age/Sex: 75 / F ADM Date: 01/26/21 Loc: ER Room/Bed: Attending Dr: Ordering Provider/Ordering MD: Brenda Webb MD Date of Service: 01/26/21 Procedure(s): XR chest 1V portable [id number] Accession Number(s): [id number] Report Number: [id number] PROCEDURE INFORMATION: Exam: XR Chest Exam date and time: 01/26/2021 6:37 PM Age: 75 years old Clinical indication: Other: Weak; Additional info: Weakness TECHNIQUE: Imaging protocol: XR of the chest. Views: 1 view. COMPARISON: CR XR chest 1V portable [id number] 10/31/2020 1:33 PM FINDINGS: Tubes, catheters and devices: Right IJ Port-A-Cath is stable in position with the tip in the SVC. Lungs: Decreased inspiration with bilateral lower lobe patchy atelectasis. Pleural spaces: Small bilateral pleural effusions. Heart/Mediastinum: Stable mild enlargement of the cardiac silhouette. Mediastinal contours are unremarkable. Bones/joints: Bones are diffusely osteopenic. Degenerative changes in the spine and shoulders. Osseous findings are stable. XR/XR chest 1V portable [id number] IMPRESSION: 1. Decreased inspiration with bilateral lower lobe patchy atelectasis. 2. Small bilateral pleural effusions. 3. Incidental/nonacute findings are listed in the report. Dictated By: Malika Kumar MD Signed By: Malika Kumar MD Signed Date/Time: 01/26/211932 DD/ 31 EKG Data^: EKG 1: Attestation: I personally reviewed and interpreted this EKG as follows: EKG interpretation date: 01/26/21 EKG interpretation time: 18:45 Interpretation: sinus tach hr [address] or t wave abnormalities qrs 120 qtc 386 Critical Care Time Critical Care Time: Critical Care Time: Yes Total Critical Care Time: 35 Attestation: This case had a high probability of a clinically significant, sudden, or life threatening deterioration of this patient's condition which required my full and direct attention, intervention and personal management. Discharge Plan Discharge Patient Disposition: Admitted As Inpatient Clinical Impression: Sepsis, Weakness, Cirrhosis Condition: Stable Coding Level of Care Code ED Abstracter for Chg Fwd Exam Comprehensive
[2021-01-26 19:05] LABS: Alanine Aminotransferase 33 U/L (0-33); Albumin Level 2.1 g/dL (3.5-5.2); Alkaline Phosphatase 271 IU/L (35-105); Anion Gap 18.9 (5-19); Aspartate Amino Transferase 68 U/L (0-32); Blood Urea Nitrogen 67 mg/dL (8-23); Calcium 7.6 mg/dL (8.5-10.5); Carbon Dioxide 22 mmol/L (22-29); Chloride 94 mmol/L (98-107); Creatine Phosphokinase 146 U/L (26-192); Globulin 2.7 g/dL (1.3-4.6); Glucose 156 mg/dL (65-115); Lipase 10 U/L (13-60); Osmolality Calculated 293 mOsm/kg (285-295); Potassium 4.9 mmol/L (3.5-5.1); Sodium 130 mmol/L (136-145); Total Bilirubin 1.5 mg/dL (0.15-1.2); Total Protein 4.8 g/dL (6.6-8.7)
[2021-01-26 19:16] LABS: Blood Urine Neg (Negative); Glucose Urine UA Norm (Normal); Ketones Urine Negative (Negative); Nitrate Urine Negative (Negative); Protein Urine Neg (Negative); Urine Appearance Clear (CLEAR); Urine Color Yellow (Yellow); pH Urine 5 (5-7)
[2021-01-26 19:17] LABS: Leukocyte Esterase Urine Negative (Negative); Urobilinogen Urine Norm (Negative)
--- NOTE | 2021-01-26 19:20 | PC.NURSE ---
Report from HARRISON Anaya
[2021-01-26] MEDS: piperacillin-tazobactam 3.375 GM in sodium chloride 0.9% (plus) 50 ML IV (19:43)
[2021-01-26] MEDS: sodium chloride 0.9% 1,000 ML 999 ML IV (19:44)
[2021-01-26 20:16] LABS: Ammonia 56 umol/L (11-51)
[2021-01-26] MEDS: morphine 4 mg/mL SDV 1 mL IVP (20:16)
[2021-01-26] MEDS: ondansetron 2 mg/ML SDV 2 mL 4 MG IVP (20:16)
[2021-01-26 20:23] LABS: NT Pro B Type Natriuretic Pept 4771 pg/mL (0-125)
[2021-01-26 20:27] LABS: Reflex Lactate Order REFLEX LACTIC ORDERD
--- NOTE | 2021-01-26 20:42 | PC.NURSE ---
Repositioned for comfort; wet bed linens changed out; pillows placed under L side. Daughter Marsha in room. No other needs identified at this time.
[2021-01-26 20:47] VITALS: BP 96/61; PULSE 98; RESP 23; O2SAT 99
[2021-01-26 21:05] LABS: SARS Covid-2 Antigen Negative (Negative)
--- NOTE | 2021-01-26 21:37 | P.HP_ITS ---
Providers/Chief Complaint Primary Care Provider: Phil Cisneros MD Chief Complaint: Septic/Renal Failure/Liver Failure/Sent by Rafael History of Present Illness Lexie Sylvester is a 75 year old female with history of stage IV cholan giocarcinoma, previous history of endometrial and thyroid cancer, status post chemoradiotherapy, possible recurrent neoplasm however recent imaging showed stable left hepatic lobe nodule, currently on expectant management for cholangiocarcinoma, found to have liver cirrhosis by MRI and liver biopsy, currently on lactulose and rifaximin for hepatic encephalopathy and recurrent ascites, intraperitoneal catheter placement appointment tomorrow with Dr. 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 Hall's clinic because of worsening leukocytosis. She was discharged on 12/31/2020 to [facility], during that admission she received 4 units PRBC for GI blood loss anemia, she underwent ultrasound-guided paracentesis yielding 7 L of peritoneal fluid, she did not undergo any EGD or colonoscopy because of her history of radiation-induced gastritis. Patient is stating that at home she has been feeling lethargic and fatigued however no active chest pain, dysuria, diarrhea or constipation. She has not noticed any fever. She has chronic cough no acute worsening noted. Diagnostic work-up in the ER revealed sepsis, I have requested CT abdomen pelvis however chest x-ray unremarkable, blood cultures obtained, I have started on broad-spectrum antibiotics, patient is adamant that she would not like to be transferred, she was given an option to be transferred to another hospital because of lack of ICU beds, her systolic blood pressure is 108 mmHg, she is alert and oriented no active signs of hepatic encephalopathy or shock. Not complaining of active abdominal pain She experienced one episode of emesis in the ER, no active bleeding She is not sure but stating that she probably received messenger RNA vaccine. Review of Systems Const: Reports: chills, body aches and fatigue; Denies: fever(s) Eyes: Denies: change in vision ENMT: Denies: throat pain Card: Reports: swelling of feet/ankles, dyspnea on exertion and orthopnea; Denies: chest pain Resp: Reports: dyspnea and non-productive cough GI: Reports: nausea and vomiting; Denies: abdominal pain or diarrhea : Denies: flank pain Musc: Denies: neck pain Skin/Breast: Reports: lesions Neuro: Denies: headache(s) Psych: Reports: anxiety and difficulty concentrating Endo: Denies: polyuria Александр/Lymph: Reports: easy bruising and easy bleeding All/Imm: Denies: urticaria Medications/Allergies Home Medications Medication Instructions Recorded Confirmed Last Taken Type ergocalciferol (vitamin D2) 50,000 unit PO Q7D 10/31/20 01/26/21 01/18/21 History furosemide 80 mg PO DAILY@0700 10/31/20 01/26/21 01/22/21 History ondansetron 8 mg PO Q8H PRN 10/31/20 01/26/21 Unknown History Xifaxan 550 mg PO BID@0700,1900 11/18/20 01/26/21 01/22/21 History [place] Thyroid 180 mg PO DAILY@0700 12/24/20 01/26/21 01/22/21 History potassium chloride 10 meq PO BID 12/24/20 01/26/21 01/22/21 History pantoprazole 40 mg PO BID #30 tab 12/31/20 01/26/21 01/15/21 Rx pyridoxine (vitamin B6) 25 mg PO DAILY #30 tab 12/31/20 01/26/21 01/22/21 Rx spironolactone 25 mg PO DAILY #30 tab 12/31/20 01/26/21 01/22/21 Rx diclofenac sodium See Rx Instructions .ROUTE .COMPLEX 01/22/21 01/26/21 01/22/21 History docusate sodium 100 mg PO BID 01/22/21 01/26/21 01/22/21 History ferrous sulfate 325 mg PO BID 01/22/21 01/26/21 01/22/21 History lactulose 30 ml FEEDING TUBE Q6H 01/22/21 01/26/21 01/22/21 History omeprazole 40 mg PO DAILY 01/22/21 01/26/21 01/22/21 History pramoxine [Proctofoam] [address] BID #15 g 01/22/21 01/26/21 Unknown Rx Allergies Allergy/AdvReac Type Severity Reaction Status Date / Time oxycodone Allergy ADR-Nausea Verified 01/26/21 09:59 tramadol Allergy ADR-Nausea Verified 01/26/21 09:59 PFSH Acute PFSH: Medical History Anemia not candidate of AC Cholangiocarcinoma DVT (deep venous thrombosis) b/l dvt november 13 Endometrial cancer Fracture of right scapula Hemorrhoids History of abdominal paracentesis Hypothyroid Liver cirrhosis Pneumonia Presence of IVC filter Rotator cuff arthropathy Thyroid cancer Uterine cancer Valvular heart disease Surgical History Bioprosthetic aortic valve replacement during current hospitalization 2013 H/O esophagogastroduodenoscopy (11/19/20) H/O laparoscopy H/O lumpectomy History of hysterectomy History of liver biopsy History of salpingo-oophorectomy History of thyroidectomy, total Hx of cataract surgery Hx of tonsillectomy S/P AVR (aortic valve replacement) S/P IVC filter Has been removed. Status post colonoscopy (11/19/20) Family History Father Cancer Lung Cancer Brother CAD (coronary artery disease) Social History Smoking and tobacco status: never smoked Second hand smoke exposure: No Smoking risk assessment/counseling performed?: No Alcohol intake: never Counseling given: No Counseling given: No Lives independently: Yes Household members: spouse Marital status: Current gender identity: Female Vitals/I&O/Wt Last Vital Signs Temp 97.5 F L 01/26/21 17:07 Pulse 98 01/26/21 20:47 Resp 23 H 01/26/21 20:47 BP 96/61 01/26/21 20:47 Pulse Ox 99 01/26/21 20:47 Weight last 48 hrs Weight 109.769 kg Physical Exam Narrative: EXAM NARRATIVE: She appears very weak generally, EyesSclerae nonicteric. Conjunctivae clear, ENMT - No lesions noted in the oral cavity, Lungs sound clear, Cardiovascular - Heart rhythm isirregular. There is a II/ systolic murmur. There is no gallop or rub noted, Abdomen - Distended with obvious ascites. Liver does not appear enlarged. Spleen is not palpable. There is no abdominal mass noted and there is no inguinal adenopathy noted Extremities - There is mild lower extremity edema. There are multiple purpuric lesions on the arms, Neurologic - No focal exam Urinary Catheter Management^: Brown: Cath Placed During This Visit: yes Urinary Catheter Date of Insertion: 01/26/21 Urinary Catheter Time of Insertion: 18:37 Data : 01/26/21 18:25 01/26/21 18:25 Micro: Microbiology 01/26/21 19:40 Blood Culture - Preliminary Blood SPECIMEN COLLECTED 01/26/21 19:48 Blood Culture - Preliminary Blood SPECIMEN COLLECTED A&P Assessment and plan (1) Ascites: Status: Acute (2) Sepsis: Status: Acute (3) Anemia: Status: Acute Additional A&P Information Sepsis Criteria met with tachypnea tachycardia and leukocytosis, high lactic acid Source unknown No active alyson pain chest x-ray unremarkable I requested CT abdomen pelvis without contrast No active signs of meningitis No cellulitis of lower extremities Patient not complaining of dysuria I will start her on vancomycin cefepime and metronidazole, this combination has been chosen because of THELMA Requested blood cultures, will definitely benefit from diagnostic paracentesis She was due for peritoneal drain placement by Dr. Billy tomorrow, wait until sepsis resolves Systolic blood pressure 105 to 110 mmHg, low albumin, 3rd spacing of fluid noted, might benefit from albumin Recurrent ascites Patient had appointment with Dr. Billy for placement of peritoneal drain Consider albumin Diagnostic paracentesis in the morning No abdominal pain No active signs of hepatic encephalopathy On broad-spectrum antibiotic Would use low-dose Bumex and discontinue Lasix and spironolactone because of THELMA and hypotension Acute on chronic kidney disease Patient is hypervolemic Anticipating improvement with judicious use of diuretics 3rd spacing of fluid with low albumin Hold spironolactone History of liver cirrhosis Low albumin, continue lactulose and rifaximin No active signs of decompensated liver cirrhosis or hepatic encephalopathy SBP to be ruled out Code care: Full code Cardiac diet DVT prophylaxis SCDs, avoid anticoagulating agent due to history of anemia requiring blood transfusion High risk of mortality morbidity Attestations Medical Necessity Statement*: Anticipating stay in the hospital cross more than 2 midnights at high risk of deterioration Time Spent in Patient Care: Greater than 35 minutes Coding Level of Care Code Acute [employer] for Chg Fwd Diagnoses Ascites R18.8 Sepsis A41.9 Anemia D64.9
--- NOTE | 2021-01-26 21:39 | CTR_ITS ---
PROCEDURE INFORMATION: Exam: CT Abdomen And Pelvis Without Contrast Exam date and time: 01/26/2021 9:39 PM Age: 75 years old Clinical indication: Bloating and nausea and vomiting; Abdominal pain; Generalized; Prior surgery; Surgery type: Csection; Patient HX: Diffuse abd pain with distention. N/v. History of thyroid/liver cancer. Non contrast administered due to renal function. TECHNIQUE: Imaging protocol: Computed tomography of the abdomen and pelvis without contrast. Radiation optimization: All CT scans at this facility use at least one of these dose optimization techniques: automated exposure control; mA and/or kV adjustment per patient size (includes targeted exams where dose is matched to clinical indication); or iterative reconstruction. COMPARISON: 1. CT abdomen pelvis w con* [id number] 01/22/2021 4:[address] abdomen pelvis w con* [id number] 12/11/2019 2:04:00 PM RADIATION DOSE METRICS: Total DLP (mGy-cm): 2087.99 FINDINGS: Tubes, catheters and devices: The tip of a central line is in the right atrium. Pleural spaces: Stable small bilateral pleural effusions with compressive atelectasis, worse on the left. Heart: Stable mild enlargement of the cardiac silhouette. The prosthetic aortic valve is stable. Liver: Stable nodular contour of the liver. Stable ill-defined lesion in the medial left lobe of the liver measures 2.0 x 3.6 x 1.9 cm (series 601, image 62 and series 2, image 31). Gallbladder and bile ducts: Multiple stones in the gallbladder. Findings are stable. No gallbladder wall thickening. No biliary ductal dilatation. Pancreas: Stable moderate atrophy of the pancreatic parenchyma. No pancreatic ductal dilatation. Stable 1.6 x 1.3 cm cystic focus emanating from the tail of the pancreas dating back to 12/11/2019. Spleen: Mild enlargement of the spleen measuring 13.1 cm in length (series 602, image 30). Adrenal glands: The right adrenal gland is unremarkable. Stable indeterminate focus in the left adrenal gland dating back to 12/11/2019. Hounsfield units show density greater than expected for an adenoma. This measures 2.0 x 1.3 cm (series 2, image 34).. Kidneys and ureters: Persistent enhancement of the renal parenchyma bilaterally, findings raise suspicion for contrast induced uropathy. The distal right and left ureters are obscured by adjacent bowel loops and ascites. The visualized portions of the ureters are unremarkable. Stomach and bowel: Multiple foci of increased density in the fundus of the stomach, representing swallowed medications. Numerous diverticula throughout the entire colon. No acute abnormality in the small bowel. Appendix: Appendix not definitely visualized. No inflammatory changes in the pericecal region however. Intraperitoneal space: No free intraperitoneal air. No loculated fluid collections to suggest an abscess. Stable large volume ascites and mesenteric edema. Vasculature: Stable extensive atherosclerotic calcification in the coronary arteries. No evidence for aortic aneurysm. Stable small caliber varices in the upper abdomen. Lymph nodes: No lymphadenopathy. Urinary bladder: The bladder is incompletely filled, which can limit evaluation. No focal abnormality in the bladder however. Reproductive: Patient has had a previous hysterectomy. The ovaries are not definitely visualized, not an expected in a postmenopausal female. This may be due to ovarian atrophy. Alternatively, the patient may have had a previous bilateral oophorectomy. Bones/joints: Poststernotomy changes in the chest are partially visualized. Moderate degenerative changes at both the right and left hips. Moderate degenerative changes of the right and left sacroiliac joints. Multilevel degenerative changes of varying severity in the visualized spine. Moderate spinal canal stenosis at T7-8 and T12-L1. Mild spinal canal stenosis at L1-L2 through L3-L4. Multilevel foraminal stenosis of varying severity in the lumbar spine. Soft tissues: Stable severe body wall edema. CT/CT abdomen pelvis wo con [id number] IMPRESSION: 1. Persistent enhancement of the renal parenchyma bilaterally, findings raise suspicion for contrast induced uropathy. Recommend clinical correlation. 2. Stable findings consistent with cirrhosis and portal hypertension with mild splenomegaly, small caliber varices, and large volume ascites. 3. Stable low-density lesion in the medial left lobe of the liver, primary liver malignancy cannot be ruled out. Recommend clinical correlation. 4. Stable small bilateral pleural effusions with compressive atelectasis, worse on the left. 5. Stable small cystic focus emanating from the tail of the pancreas dating back to 12/11/2019. Reimaging every 1 year for 5 years, then every 2 years for 4 years is recommended. Alternatively, EUS/FNA is recommended. (Reference: Marry, 2017) 6. Stable cholelithiasis. 7. Stable indeterminate focus in the left adrenal gland dating back to 12/11/2019. 8. Colonic diverticulosis. No evidence for diverticulitis. 9. Stable severe body wall edema. 10. Incidental/nonacute findings are listed in the report. REFERENCES: Marry MOHR, et al. Management of Incidental Pancreatic Cysts: A White Paper of the ACR Incidental Findings Committee. J Am Divya Radiol. 2017;14(7):911-923. Radiation Dose CTDIVOL = (mGy): DLP = 2087.99 (mGy-cm)
[2021-01-26] MEDS: vancomycin 1,000 MG in sodium chloride 0.9% 250 ML 250 MG IV (21:45)
--- NOTE | 2021-01-26 21:52 | PC.NURSE ---
Daughter Marsha went home for the night. She asked to be called with any changes or if we need anything from her. [phone].
[2021-01-26 23:47] VITALS: BP 117/51; PULSE 91; RESP 8; O2SAT 94
[2021-01-27] VITALS (9 sets, daily range): BP systolic 96–129; BP diastolic 55–77; PULSE 84–98; RESP 12–20; TEMP 36.4–36.7; O2SAT 93–99; BMI 38.7
--- NOTE | 2021-01-27 00:30 | US_ITS ---
WS: [id number] ULTRASOUND-GUIDED THERAPEUTIC AND DIAGNOSTIC PARACENTESIS Procedure, risks, and complications have been explained to the patient. Consent is obtained. Utilizing aseptic technique and 1% buffered lidocaine, a small dermatome was made through which a 5 F rench Yueh catheter was inserted. Approximately 5000 ml of clear peritoneal fluid was obtained witho ut difficulty. No complications encountered. Peritoneal fluid collected for analysis as requested. US/US paracentesis abd w [id number] IMPRESSION: Uncomplicated paracentesis yielding 5000 ml of peritoneal fluid.
[2021-01-27] MEDS: cefepime 2,000 MG in sodium chloride 0.9% (plus) 50 ML 100 MG IV (01:07)
[2021-01-27] MEDS: albumin 12.5 GM/250 ML VIAL IV (01:46)
--- NOTE | 2021-01-27 01:54 | PC.PHAR ---
Vancomycin is dosed at 1gm IVPB every 24 hours as in ER to produce a predicted trough level of 15.19 (population based pharmacokinetic analysis). A trough level hs been ordered from the lab to be obtained before the fourth dose to confirm and adjust if needed.
[2021-01-27 05:54] LABS: Basophils # 0.1 10^3/uL (0.0-0.1); Basophils % 0.4 %; Eosinophils # 0.1 10^3/uL (0.0-0.8); Eosinophils % 0.4 %; Hematocrit 29.4 % (37.0-47.0); Hemoglobin 9.2 g/dL (11.5-15.3); Lymphocytes % 4.3 %; Mean Corpuscular HGB Conc 31.3 g/dL (30.0-36.0); Mean Corpuscular Hemoglobin 30.2 pg (28.0-34.0); Mean Corpuscular Volume 96.4 fL (81-99); Mean Platelet Volume 11.5 fL (7.4-10.4); Monocytes # 1.7 10^3/uL (0.2-0.9); Monocytes % 7.3 %; Neutrophils # 19.49 10^3/uL (1.8-7.7); Neutrophils % 86.7 %; Nucleated Red Blood Cells % 0 %; Platelet Count 61 10^3/cmm (130-400); Red Blood Count 3.05 10^6/uL (4.1-5.3); Red Cell Distribution Width 18.7 % (12.1-15.1); White Blood Count 22.5 10^3/uL (4.0-10.0)
[2021-01-27] MEDS: thyroid 60 mg Tablet 180 MG PO (06:01)
[2021-01-27 06:07] LABS: INR 1.32 (0.8-1.2)
[2021-01-27 06:14] LABS: Anion Gap 14.7 (5-19); Blood Urea Nitrogen 66 mg/dL (8-23); Calcium 7.5 mg/dL (8.5-10.5); Carbon Dioxide 23 mmol/L (22-29); Chloride 95 mmol/L (98-107); Glucose 146 mg/dL (65-115); Osmolality Calculated 288 mOsm/kg (285-295); Potassium 4.7 mmol/L (3.5-5.1); Sodium 128 mmol/L (136-145)
[2021-01-27 06:59] LABS: Slide Review Slide Review Perform
--- NOTE | 2021-01-27 09:07 | US_ITS ---
WS: [id number] RENAL ULTRASOUND HISTORY: hayley COMPARISON: CT abdomen 01/26/2021 TECHNIQUE: 2-D and color Doppler imaging of the kidney submitted. Right kidney: 11.1 cm x 5.5 cm x 4.4 cm. Normal size kidney. Kidney is difficult to visualize and displaced by body habitus and ascites. Gross ly no abnormality. Left kidney: LEFT kidney is not identified. LEFT kidney is present as visualized on recent CT but dif ficult to visualize due to its posterior position. Aorta: Not visualized. Urinary Bladder: Nondistended. Brown catheter in place. US/US renal BI* [id number] IMPRESSION: 1. Limited evaluation of the kidneys. 2. LEFT kidney is not identified due to its position and body habitus. 3. Grossly the RIGHT kidney is negative with no hydronephrosis.
[2021-01-27] MEDS: midodrine 5 mg TABLET 10 MG PO ×3 (10:21→20:57)
[2021-01-27] MEDS: pyridoxine 50 mg Tablet 25 MG PO (10:22)
[2021-01-27] MEDS: ferrous sulfate EC 325 mg Tablet PO ×2 (10:22→17:19)
[2021-01-27] MEDS: lactulose oral liq 20 gm/30 mL UDC 30 GM PO ×3 (10:25→20:57)
[2021-01-27] MEDS: pantoprazole 40 mg SDV IVP ×2 (10:28→17:19)
--- NOTE | 2021-01-27 10:45 | PC.CHAP ---
Pastoral Care Encounter/Spiritual Assessment Type of Contact [] Declined access liaison visit [] Patient/Family/Request visit [] Outpatient visit [] Follow-up visit [] Physician referral [] Code/Alert [x] Routine visit [] Staff referral [] Actively dying [x] Patient sleeping [] Family support [] [] Out of room [] Palliative care [] [] Receiving care in room [] Pre-surgical visit [] Trauma [] Long length of stay [] ICU visit [] Other: Relational/Emotional Strength [] Patient feels connected with others/family/visitors/staff [] Distress [] Loneliness/isolation [] Abandonment Spirituality of Patient [] Person of [place] [] Attends Gnosticist of their [place] [] Believes in Prayer [] Reads Bible or Caodaism materials [] There are Spiritual issues to be addressed Coder Operator Interventions [] Prayer [] Active listening [] Non-anxious presence [] Spiritual/emotional support [] Crisis/trauma care [] Spiritual counseling [] Bereavement support [] Provided bereavement packet [] Provided Bible/devotional materials [] Provided toy/stuffed animal, coloring book to patient or family member [] Provided Communion [] Anointing/[place] [] Salvation [] Completed spiritual assessment [] Other: Impact on Illness or Injury [] Angry [] Fearful [] Anxious [] Often cries [] Exhaustion [] Unable to work [] Unable to attend scientology [] Unable to walk/stand [] Unable to read [] Unable to drive [] Unable to eat/drink [] Unable to sleep [] Unable to be with family [] Patient intubated [] Other: Summary Time spent with patient
--- NOTE | 2021-01-27 10:46 | PC.CHAP ---
Pastoral Care Encounter/Spiritual Assessment Type of Contact [] Declined dog daycare provider visit [] Patient/Family/Request visit [] Outpatient visit [] Follow-up visit [] Physician referral [] Code/Alert [xx] Routine visit [] Staff referral [] Actively dying [] Patient sleeping [] Family support [] [] Out of room [] Palliative care [] [] Receiving care in room [] Pre-surgical visit [] Trauma [] Long length of stay [] ICU visit [] Other: Relational/Emotional Strength [x] Patient feels connected with others/family/visitors/staff [] Distress [] Loneliness/isolation [] Abandonment Spirituality of Patient x [] Person of [place] [] Attends Zoroastrian of their [place] [x] Believes in Prayer [] Reads Bible or Temple materials [] There are Spiritual issues to be addressed Tap And Die Maker Technician Interventions [x] Prayer [] Active listening [] Non-anxious presence [] Spiritual/emotional support [] Crisis/trauma care [] Spiritual counseling [] Bereavement support [] Provided bereavement packet [] Provided Bible/devotional materials [] Provided toy/stuffed animal, coloring book to patient or family member [] Provided Communion [] Anointing/[place] [] Salvation [x] Completed spiritual assessment [] Other: Impact on Illness or Injury [] Angry [] Fearful [] Anxious [] Often cries [] Exhaustion [] Unable to work [] Unable to attend episcopalian [] Unable to walk/stand [] Unable to read [] Unable to drive [] Unable to eat/drink [] Unable to sleep [] Unable to be with family [] Patient intubated [] Other: Summary Time spent with patient 15 min
[2021-01-27 10:48] LABS: Body Fluid Polynuclear #Cells 0.033; Body Fluid WBC 111 /uL; Monocytes # Body Fluid 0.078; RBC, Body Fluid 0 10^3/uL
[2021-01-27 10:55] LABS: Apprearance, Body Fluid CLEAR; Color, Body Fluid PALE YELLOW
[2021-01-27 11:39] LABS: Albumin Body Fluid 0.3 g/dL; Amylase Body Fluid 3 U/L; Cholesterol Body Fluid 5 mg/dL (0-200); LDH Body Fluid 45 U/L; Total Protein Body Fluid 0.4 g/dL; Triglycerides Body Fluid 39 mg/dL (0-150); Uric Acid Body Fluid 11 mg/dL
[2021-01-27 11:40] LABS: Fluid Alkaline Phos. 11 IU/L
--- NOTE | 2021-01-27 12:36 | PM.PN ---
Subjective Subjective: Interval history: Patient was seen this morning, she tells me that [facility] is at home with her , she has been feeling unwell for the last few days, has had a cough, has felt weak, no nausea, no vomiting, no headache, blurry vision, no neck pain, no dysuria, no hematuria, no diarrhea, no known exposure to COVID-19, has not received the Covid vaccine, no history of SBP, no abdominal complaints Vitals/I&O/Wt Last Vital Signs Temp 97.6 F 01/27/21 04:00 Pulse 95 01/27/21 09:53 Resp 18 01/27/21 09:53 BP 121/71 01/27/21 09:53 Pulse Ox 97 01/27/21 09:53 01/26/21 01/27/21 01/27/21 22:59 06:59 14:59 Intake Total 1600 / 1600 100 / 100 Output Total 400 / 400 Balance 1200 / 1200 100 / 100 Weight last 48 hrs Weight 115.666 kg Weight 109.769 kg Physical Exam Const: COMMON NORMALS: no acute distress and patient oriented x3 Resp: COMMON NORMALS: normal respiratory effort, No retractions, No use of accessory muscles and clear to auscultation bilaterally AUSCULTATION: clear to auscultation bilaterally Cardio: COMMON NORMALS: regular rate, regular rhythm, S1 normal heart sound present and S2 normal heart sound present RATE: regular rate RHYTHM: regular rhythm HEART SOUNDS: S1 normal heart sound present and S2 normal heart sound present GI: COMMON NORMALS: Normal to inspection, nondistended, normoactive bowel sounds present, Soft to palpation and non-tender INSPECTION: Yes abdominal distension PALPATION: Yes Soft to palpation Extremity: COMMON NORMALS: no pedal edema Neuro: COMMON NORMALS: patient oriented x3 Urinary Catheter Management^: Brown: Cath Placed During This Visit: yes Reason for Continuing Indwelling Catheter: Acute Urinary Retention or Obstruction Urinary Catheter Date of Insertion: 01/26/21 Urinary Catheter Time of Insertion: 18:37 Data : 01/27/21 04:49 01/27/21 04:49 Micro: Microbiology 01/26/21 19:40 Blood Culture - Preliminary Blood SPECIMEN COLLECTED 01/26/21 19:48 Blood Culture - Preliminary Blood SPECIMEN COLLECTED A&P Assessment and plan (1) Ascites: Status: Acute (2) Sepsis: Status: Acute (3) Anemia: Status: Acute (4) DVT (deep venous thrombosis): Status: Acute (5) Cholangiocarcinoma: Status: Acute (6) Liver cirrhosis: Status: Acute (7) Valvular heart disease: Status: Acute Additional A&P Information Sepsis Likely secondary to underlying pneumonia, possible spontaneous bacterial peritonitis Criteria met with tachypnea tachycardia and leukocytosis, high lactic acid UA unremarkable for UTI, no urinary complaints Does have complaints of a cough, on 2 L nasal cannula, chest x-ray showing bilateral lower lobe patchy atelectasis No active abdominal pain, but does have fevers, does have recurrent ascites, has cirrhosis, has an increased risk of spontaneous bacterial peritonitis No headache, blurry vision, no neck pain, no significant evidence of meningitis No cellulitis of lower extremities Plan: -Patient sepsis would preferably managed in the ICU, however there is no beds, and patient is adamant against transfer -For now continue broad-spectrum antibiotics vancomycin, Primaxin -Has received albumin -Paracentesis, with fluid studies -Monitor respiratory status -Advair, albuterol, vitamin C, zinc, incentive spirometer, flutter valve -Covid PCR ordered -Hold off on IV fluids for now given her risk of fluid overload -Albumin as needed -Start midodrine 10 mg 3 times daily -Follow blood cultures, urine cultures, urine bacterial antigens, sputum cultures, MRSA nares, peritoneal cultures -Covid PCR, Covid isolation -Protonix -Full code -Anticoagulation contraindicated given history of transfusion dependent anemia Acute kidney injury -Likely secondary to sepsis, hypotension -Monitor urine output, Place Brown catheter -Hold off on IV fluids due to risk of fluid overload -Start midodrine 10 mg 3 times daily -Monitor blood pressures Transfusion dependent anemia -Hemoglobin 9.2, continue to monitor Thrombocytopenia, secondary liver cirrhosis, continue to monitor Stage IV cholangiocarcinoma Hyponatremia, secondary to liver cirrhosis, fluid overload, continue to monitor History of valvular heart disease, status post bioprosthetic aortic valve replacement 2013 History of DVT, status post IVC filter, now removal, cannot tolerate anticoagulation due to transfusion dependent anemia Recurrent ascites Patient had appointment with Dr. Billy for placement of peritoneal drain Consider albumin Diagnostic paracentesis in the morning No abdominal pain No active signs of hepatic encephalopathy On broad-spectrum antibiotic Hold off on diuretic therapy History of liver cirrhosis Low albumin, continue lactulose and rifaximin No active signs of decompensated liver cirrhosis or hepatic encephalopathy SBP to be ruled out Code care: Full code Cardiac diet DVT prophylaxis SCDs, avoid anticoagulating agent due to history of anemia requiring blood transfusion High risk of mortality morbidity Attestations Medical Necessity Statement*: Patient course hospitalization for sepsis secondary to pneumonia, possible SBP, requiring inpatient admission, greater than 2 midnights Coding Level of Care Code Acute Advertising Designer for Chg Fwd Diagnoses Ascites R18.8 Sepsis A41.9 Anemia D64.9 DVT (deep venous thrombosis) I82.409 Cholangiocarcinoma C22.1 Liver cirrhosis K74.60 Valvular heart disease I38
[2021-01-27 12:50] LABS: PATH Referral YES
[2021-01-27 12:50] LABS: Potassium, Radom Urine 39 mmol/L; Urine Creatinine 58 mg/dL (28-217)
[2021-01-27 13:03] LABS: Urine Random Chloride 12 mmol/L; Urine Random Sodium 10 mmol/L
[2021-01-27 13:15] LABS: C Reactive Protein 74.8 mg/L (0.0-4.9)
--- NOTE | 2021-01-27 13:26 | PC.PHAR ---
PTS DAUGHTERS VERIFIED PTS MEDICATIONS-BALTAZAR (PTS DAUGHTER) STATES DR PILLAI DCED KCL 10MEQ BID AND SPIRONOLACTONE 25MG DAILY ON 01/26/21- BALTAZAR STATES THE PT TOOK THE AM DOSES 01/26/21-
[2021-01-27 14:12] LABS: Eosinophil Urine No Eosinophils Seen; Urine Eosinophil Count 0 (0-0)
[2021-01-27] MEDS: ascorbic acid 500 mg Tablet PO (17:19)
[2021-01-27] MEDS: vancomycin 1,000 MG in sodium chloride 0.9% 250 ML 250 MG IV (18:36)
[2021-01-27] MEDS: potassium chloride ER 10 mEq Tablet PO (20:57)
[2021-01-27] MEDS: albuterol 8 gm MDI 2 PUFF INHALATION (21:15)
[2021-01-28] VITALS (13 sets, daily range): BP systolic 108–132; BP diastolic 61–80; PULSE 69–96; RESP 16–20; TEMP 35.7–36.9; O2SAT 92–99
[2021-01-28] MEDS: albuterol 8 gm MDI 2 PUFF INHALATION (04:25)
[2021-01-28 05:50] LABS: Basophils # 0.1 10^3/uL (0.0-0.1); Basophils % 0.3 %; Eosinophils # 0.1 10^3/uL (0.0-0.8); Eosinophils % 0.7 %; Hematocrit 26.3 % (37.0-47.0); Hemoglobin 8.2 g/dL (11.5-15.3); Lymphocytes # 1.1 10^3/uL (0.8-4.8); Mean Corpuscular HGB Conc 31.2 g/dL (30.0-36.0); Mean Corpuscular Hemoglobin 30.4 pg (28.0-34.0); Mean Corpuscular Volume 97.4 fL (81-99); Mean Platelet Volume 11.3 fL (7.4-10.4); Monocytes # 2.2 10^3/uL (0.2-0.9); Monocytes % 10.4 %; Neutrophils # 17.32 10^3/uL (1.8-7.7); Neutrophils % 81.9 %; Nucleated Red Blood Cells % 0 %; Platelet Count 48 10^3/cmm (130-400); White Blood Count 21.1 10^3/uL (4.0-10.0)
--- NOTE | 2021-01-28 05:58 | PC.NURSE ---
patient continue to have leakage from parasynthesis site, dressing changed 5 times in total, continue to have weeping to right arm. required extensive assist with 2 staff for changing bedding and hygiene, patient continue ask about test results and verbalized desire to know results MIRYAM.
[2021-01-28 05:59] LABS: INR 1.47 (0.8-1.2)
[2021-01-28 06:10] LABS: Lactate (Lactic Acid level) 2.4 mmol/L (0.5-2.2)
[2021-01-28 06:11] LABS: Alanine Aminotransferase 30 U/L (0-33); Albumin Level 1.8 g/dL (3.5-5.2); Alkaline Phosphatase 244 IU/L (35-105); Anion Gap 14.7 (5-19); Aspartate Amino Transferase 71 U/L (0-32); Blood Urea Nitrogen 72 mg/dL (8-23); C Reactive Protein 55.4 mg/L (0.0-4.9); Calcium 7.1 mg/dL (8.5-10.5); Carbon Dioxide 22 mmol/L (22-29); Chloride 95 mmol/L (98-107); Globulin 2.3 g/dL (1.3-4.6); Glucose 150 mg/dL (65-115); Magnesium 2.1 mg/dL (1.7-2.3); Osmolality Calculated 288 mOsm/kg (285-295); Phosphorus 4.5 mg/dL (2.5-4.5); Potassium 4.7 mmol/L (3.5-5.1); Slide Review Slide Review Perform; Sodium 127 mmol/L (136-145); Total Protein 4.1 g/dL (6.6-8.7)
[2021-01-28 06:13] LABS: NT Pro B Type Natriuretic Pept 5483 pg/mL (0-125); Procalcitonin 2.39 ng/mL (0-0.5)
[2021-01-28] MEDS: thyroid 60 mg Tablet 180 MG PO (06:16)
[2021-01-28 06:24] LABS: Creatine Phosphokinase 27 U/L (26-192)
[2021-01-28] MEDS: zinc gluconate 50 mg Tablet PO (08:32)
[2021-01-28] MEDS: cholecalciferol (vitamin D3) 1,000 unit Tablet 1000 UNIT PO (08:33)
[2021-01-28] MEDS: ascorbic acid 500 mg Tablet PO ×2 (08:33→17:29)
[2021-01-28] MEDS: pyridoxine 50 mg Tablet 25 MG PO (08:33)
[2021-01-28] MEDS: ferrous sulfate EC 325 mg Tablet PO ×2 (08:33→17:29)
[2021-01-28] MEDS: midodrine 5 mg TABLET 10 MG PO ×3 (08:33→21:20)
[2021-01-28] MEDS: oxyCODONE 5 mg IR Tab/Cap 10 MG PO (08:33)
[2021-01-28] MEDS: lactulose oral liq 20 gm/30 mL UDC 30 GM PO ×3 (08:34→21:20)
[2021-01-28] MEDS: pantoprazole 40 mg SDV IVP ×2 (08:34→17:29)
--- NOTE | 2021-01-28 10:55 | CT_ITS ---
WS: [id number] CT CHEST WITHOUT INTRAVENOUS CONTRAST HISTORY: Pneumonia and cough. TECHNIQUE: Contiguous 5 mm axial imaging performed on the thorax. Coronal and sagittal reformats are submitted. All CT scans at [facility] use at least one of these dose optimization techniq ues: automated exposure control; mA and/or kV adjustment per patient size (includes targeted exams wh ere dose is matched to clinical indication); or iterative reconstruction. CONTRAST: None DLP: 685.39 mGy.cm COMPARISON: 10/31/2020 Lungs and central airway: Lung volumes are slightly decreased. There is mild haziness over both lungs consistent with mild pulmonary edema. Motion artifact is present obscuring details. Dense area of co nsolidation at the LEFT lung base. Subsegmental atelectasis at the lingula and RIGHT lower lobe. No p neumothorax. Pleura: Very small LEFT pleural effusion. Heart and pericardium: Moderate cardiac enlargement. Status post median sternotomy. Mediastinum and rogelio: No definite lymph nodes are identified but the mediastinal structures are limit ed without IV contrast and secondary to motion. Vessels: Coronary artery calcifications. Mild atherosclerosis aorta. Chest wall and lower neck: Diffuse soft tissue anasarca. Large bore RIGHT central line. Upper abdomen: Moderate amount of ascites noted within the upper abdomen. Surface of the liver is irr egular suggesting cirrhosis. There is soft tissue anasarca and mesenteric edema. Osseous structures: Osteopenia and mild curvature thoracic spine. CT/CT chest wo con [id number] IMPRESSION: 1. Mild pulmonary edema and diffuse soft tissue anasarca. 2. LEFT lower lobe dense consolidation consistent with pneumonia with addition al subsegmental atelectasis RIGHT lower lobe and lingula. 3. Cardiomegaly. 4. Moderate ascites noted in the upper abdomen.
[2021-01-28] MEDS: lactated ringers 500 ML 999 ML IV (12:34)
[2021-01-28] MEDS: ondansetron 2 mg/ML SDV 2 mL 4 MG IVP (12:38)
--- NOTE | 2021-01-28 14:38 | USCV_ITS ---
Lexie Sylvester Age: 75 Gender: F : 1945 Exam Date: 01/28/2021 14:58 Ordering Phys: Brandon Fountain MD Technologist: Exam Location: [facility] [place] Indication: COVID SEPTIC SOB BP: 103 / 63 HR: 85 Rhythm: Sinus Technical Quality: Adequate MEASUREMENTS (Male / Female) Normal Values 2D ECHO LV Diastolic Diameter PLAX 3.6 cm 4.2 - 5.9 / 3.9 - 5.3 cm LV Systolic Diameter PLAX 2.6 cm IVS Diastolic Thickness 1.0 cm 0.6 - 1.0 / 0.6 - 0.9 cm IVS Systolic Thickness 1.1 cm LVPW Diastolic Thickness 0.9 cm 0.6 - 1.0 / 0.6 - 0.9 cm LVPW Systolic Thickness 1.6 cm LVOT Diameter 2.0 cm LV Ejection Fraction 2D Teich 54.2 % LV Ejection Fraction MOD 2C 65.2 % LV Ejection Fraction 2C AL 65.1 % LA Diameter 3.7 cm LA Width 4.5 cm LA Height 5.5 cm RA Width 3.2 cm RA Height 3.7 cm Aorta at Sinotubular Diameter 2.4 cm DOPPLER AV Peak Velocity 349.3 cm/s LVOT Peak Velocity 114.0 cm/s AV Area Cont Eq vti 1.0 cm squared AV Area Cont Eq pk 1.1 cm squared MV Area PHT 5.1 cm squared Mitral E to A Ratio 0.8 MV E' Velocity 53.0 cm/s Mitral E to MV E' Ratio 9.7 Mitral E to LV E' Lateral Ratio 8.8 Mitral E to LV E' Septal Ratio 10.9 TR Peak Velocity 225.7 cm/s TR Peak Gradient 20.6 mmHg TV Peak E Velocity 83.0 cm/s Right Atrial Pressure 3.0 mmHg Pulmonary Artery Systolic Pressu 23.4 mmHg FINDINGS Left Ventricle Normal left ventricular cavity size. Increased left ventricular wall thickness. Normal left ventricular systolic function. Left ventricular ejection fraction is estimated at 60 %. Normal diastolic function. Abnormal septal motion consistent with conduction abnormality. Right Ventricle Normal right ventricular size and systolic function. Right ventricular systolic pressure 16 mmHg. Right Atrium Normal right atrial size. Left Atrium Moderately increased left atrial size. Mitral Valve Moderate mitral annular calcification. Mildly thickened mitral valve. No mitral valve stenosis. No mitral valve regurgitation. Aortic Valve Aortic valve not well visualized. Thickened and calcified aortic valve. Moderate aortic valve stenosis, peak velocity 3.2 m/s, peak gradient 43 mmHg, mean gradient 21 mmHg, HUMBLE 1 cm squared (LVOT= 20mm). Tricuspid Valve Structurally normal tricuspid valve. Trace tricuspid valve regurgitation. Pulmonic Valve Pulmonic valve not well visualized. No pulmonary valve stenosis. Pericardium No pericardial effusion. Aorta Normal-sized aortic root. CONCLUSIONS 1. This is a technically difficult study. 2. Normal left ventricular cavity size and systolic function. Increased left ventricular wall thickness. Left ventricular ejection fraction is estimated at 60 %. Normal diastolic function. 3. Moderate aortic valve stenosis, peak velocity 3.2 m/s, peak gradient 43 mmHg, mean gradient 21 mmHg, HUMBLE 1 cm squared . 4. Normal right ventricular size and systolic function 5. Normal pulmonary artery pressure. 6. No prior similar studies to compare. Sade Barraza MD (Electronically Signed) Final Date: 29 January 2021 13:49 S
--- NOTE | 2021-01-28 14:40 | PM.PN ---
Subjective Subjective: Interval history: Patient was seen this morning, patient tells me that she feeling much better, no fevers, no chills, did have a cough overnight, no shortness of breath, no abdominal pain, no abdominal distention, she tells me that she is leaking fluid from her legs, from her abdomen, no lightheadedness, dizziness, Patient's family called and demanding for patient to have an echocardiogram, to be transferred to [facility] I reexamined patient in the afternoon, she sitting up in a chair, on 2 to 3 L nasal cannula normotensive, she tells me she is feeling well, a bit nauseous, when I asked her about her transfer, she tells me is up to Marsha, she will go with exactly when Marsha wants, I discussed the risks and benefits of transfer, she voiced understanding, all questions answered, she tells me that she wants to do what Marsha wants to do who is her daughter Vitals/I&O/Wt Last Vital Signs Temp 98.5 F 01/28/21 11:46 Pulse 73 01/28/21 11:46 Resp 20 H 01/28/21 11:46 BP 127/80 01/28/21 11:46 Pulse Ox 94 01/28/21 11:46 01/27/21 01/28/21 01/28/21 22:59 06:59 14:59 Intake Total 450 / 550 100 / 650 840 / 840 Output Total 600 / 600 490 / 1090 Balance -150 / -50 -390 / -440 840 / 840 Weight last 48 hrs Weight 115.666 kg Weight 109.769 kg Physical Exam Const: COMMON NORMALS: no acute distress and patient oriented x3 Resp: COMMON NORMALS: normal respiratory effort and No retractions AUSCULTATION: crackles Cardio: COMMON NORMALS: regular rate, regular rhythm, S1 normal heart sound present and S2 normal heart sound present RATE: regular rate RHYTHM: regular rhythm HEART SOUNDS: S1 normal heart sound present and S2 normal heart sound present GI: COMMON NORMALS: Normal to inspection, nondistended, normoactive bowel sounds present, Soft to palpation, non-tender and No hepatosplenomegaly present PALPATION: Yes Soft to palpation and Yes No hepatosplenomegaly present Extremity: NARRATIVE EXTREMITY EXAM: 2+ edema, generalized anasarca Neuro: COMMON NORMALS: patient oriented x3 Psych: COMMON NORMALS: mental status grossly normal Urinary Catheter Management^: Brown: Cath Placed During This Visit: yes Reason for Continuing Indwelling Catheter: Acute Urinary Retention or Obstruction Urinary Catheter Date of Insertion: 01/26/21 Urinary Catheter Time of Insertion: 18:37 Data : 01/28/21 05:17 01/28/21 05:17 Micro: Microbiology 01/27/21 10:03 Gram Stain - Final Peritoneal Fluid Body Fluid Culture - Preliminary 01/26/21 19:48 Blood Culture - Preliminary Blood Coagulase negativ staphylococc 01/26/21 19:40 Blood Culture - Preliminary Blood Coagulase negativ staphylococc 01/26/21 23:15 Urine Culture - Preliminary Urine Catheterized Enterococcus species 01/27/21 11:39 Bacterial Antigens - Final Urine,Clean Catch 01/27/21 02:45 MRSA Culture - Final Nose A&P Assessment and plan (1) Ascites: Status: Acute (2) Sepsis: Status: Acute (3) Anemia: Status: Acute (4) DVT (deep venous thrombosis): Status: Acute (5) Cholangiocarcinoma: Status: Acute (6) Liver cirrhosis: Status: Acute (7) Valvular heart disease: Status: Acute Additional A&P Information Sepsis Likely secondary to underlying pneumonia, possible spontaneous bacterial peritonitis Criteria met with tachypnea tachycardia and leukocytosis, high lactic acid UA unremarkable for UTI, no urinary complaints Does have complaints of a cough, on 2 L nasal cannula, chest x-ray showing bilateral lower lobe patchy atelectasis No active abdominal pain, but does have fevers, does have recurrent ascites, has cirrhosis, has an increased risk of spontaneous bacterial peritonitis No headache, blurry vision, no neck pain, no significant evidence of meningitis No cellulitis of lower extremities Plan: -Patient sepsis would preferably managed in the ICU, however there is no beds, and patient is adamant against transfer -For now continue broad-spectrum antibiotics vancomycin, Primaxin -CT scan of the abdomen -Paracentesis, with fluid studies so far lackluster, PMN less than 250 -Monitor respiratory status -Advair, albuterol, vitamin C, zinc, incentive spirometer, flutter valve -Covid PCR ordered -Albumin as needed -Start midodrine 10 mg 3 times daily -Follow blood cultures, urine cultures, urine bacterial antigens, sputum cultures, MRSA nares, peritoneal cultures -Covid PCR, Covid isolation -Protonix -Full code -Anticoagulation contraindicated given history of transfusion dependent anemia Acute kidney injury -Likely secondary to sepsis, hypotension -Monitor urine output, Place Brown catheter -Hold off on IV fluids due to risk of fluid overload -Start midodrine 10 mg 3 times daily -Lasix for today -Monitor blood pressures Transfusion dependent anemia -Hemoglobin 9.2, continue to monitor Thrombocytopenia, secondary liver cirrhosis, continue to monitor Stage IV cholangiocarcinoma Hyponatremia, secondary to liver cirrhosis, fluid overload, continue to monitor History of valvular heart disease, status post bioprosthetic aortic valve replacement 2013 History of DVT, status post IVC filter, now removal, cannot tolerate anticoagulation due to transfusion dependent anemia Recurrent ascites Patient had appointment with Dr. Billy for placement of peritoneal drain Consider albumin Diagnostic paracentesis in the morning No abdominal pain No active signs of hepatic encephalopathy On broad-spectrum antibiotic Hold off on diuretic therapy History of liver cirrhosis Albumin 1.8, creatinine 2.0, Low albumin, continue lactulose and rifaximin No active signs of decompensated liver cirrhosis or hepatic encephalopathy SBP to be ruled out Hyponatremia, 127, likely secondary to fluid overload from liver cirrhosis, Fluid overload, likely secondary to hypoalbuminemia, some component of diastolic CHF -We will diurese, Lasix 40 mg twice daily with albumin -Cardiac echocardiogram ordered Code care: Full code Cardiac diet DVT prophylaxis SCDs, avoid anticoagulating agent due to history of anemia requiring blood transfusion High risk of mortality morbidity Attestations Medical Necessity Statement*: Patient requires hospitalization for sepsis secondary to pneumonia, THELMA, fluid overload, Coding Level of Care 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
[2021-01-28 15:28] LABS: Hematocrit 27.8 % (37.0-47.0)
[2021-01-28 15:43] LABS: Coronavirus Test Green County Not Detected
[2021-01-28] MEDS: sodium chloride 0.9% (100 ml) 100 ML 1000 ML (16:19)
[2021-01-28] MEDS: FUROsemide 10 mg/mL SDV 4mL 40 MG IVP (16:19)
[2021-01-28] MEDS: vancomycin 1,000 MG in sodium chloride 0.9% 250 ML 250 MG IV (19:30)
[2021-01-28] MEDS: potassium chloride ER 10 mEq Tablet PO (21:20)
[2021-01-29] VITALS (8 sets, daily range): BP systolic 103–121; BP diastolic 64–72; PULSE 77–96; RESP 17–18; TEMP 36.3–36.6; O2SAT 94–100
[2021-01-29 04:27] LABS: Basophils # 0.1 10^3/uL (0.0-0.1); Basophils % 0.4 %; Eosinophils # 0.2 10^3/uL (0.0-0.8); Eosinophils % 1.2 %; Hematocrit 26.9 % (37.0-47.0); Hemoglobin 8.8 g/dL (11.5-15.3); Lymphocytes # 1.4 10^3/uL (0.8-4.8); Lymphocytes % 7.4 %; Mean Corpuscular HGB Conc 32.7 g/dL (30.0-36.0); Mean Corpuscular Hemoglobin 30.4 pg (28.0-34.0); Mean Corpuscular Volume 93.1 fL (81-99); Mean Platelet Volume 11.6 fL (7.4-10.4); Monocytes # 1.9 10^3/uL (0.2-0.9); Monocytes % 10.1 %; Neutrophils # 15.23 10^3/uL (1.8-7.7); Neutrophils % 80.2 %; Nucleated Red Blood Cells % 0 %; Platelet Count 42 10^3/cmm (130-400); Red Blood Count 2.89 10^6/uL (4.1-5.3)
[2021-01-29 04:55] LABS: Lactate (Lactic Acid level) 1.9 mmol/L (0.5-2.2)
[2021-01-29 04:56] LABS: Alanine Aminotransferase 26 U/L (0-33); Albumin Level 2.7 g/dL (3.5-5.2); Alkaline Phosphatase 209 IU/L (35-105); Anion Gap 14.6 (5-19); Aspartate Amino Transferase 51 U/L (0-32); Blood Urea Nitrogen 69 mg/dL (8-23); C Reactive Protein 53.4 mg/L (0.0-4.9); Calcium 7.5 mg/dL (8.5-10.5); Carbon Dioxide 22 mmol/L (22-29); Chloride 97 mmol/L (98-107); Glucose 138 mg/dL (65-115); Magnesium 2.2 mg/dL (1.7-2.3); Osmolality Calculated 290 mOsm/kg (285-295); Phosphorus 4.6 mg/dL (2.5-4.5); Potassium 4.6 mmol/L (3.5-5.1); Sodium 129 mmol/L (136-145); Total Bilirubin 1.4 mg/dL (0.15-1.2); Total Protein 4.7 g/dL (6.6-8.7)
[2021-01-29 05:02] LABS: NT Pro B Type Natriuretic Pept 4838 pg/mL (0-125); Procalcitonin 1.94 ng/mL (0-0.5)
--- NOTE | 2021-01-29 05:02 | PC.NURSE ---
Shift Note Frequent safety and comfort rounds continue. Orders and/or nursing care completed as indicated. Patient monitored for response to intervention and treatment(s). Education provided includes positioning, leg elevation and current regimen of medications and antibiotics, ]. Patient receptive ToTeaching and verbalized understanding along with gratitude for medical treatments.]. Will continue to monitor current condition, patient scheduled to transfer to [facility] in [place] as soon as a bed becomes available, fluid weeping from bilat arms, puncture site from parasynthesis, and bilat legs continue, patient has episode of lathergy at bedtime, resolved after stimulation, patient slept well, vitals had been monitored every 30 minutes and ranges from 103/66 to 124/74, 02 sat had been in high 90's with 02 set at 2 lpm, respiratory titrated, whitley in place and urine output light yellow in color, had 2 bowel movements with small amount of blood, patient awake at 0400 and alert and oriented, speech clear and able to answer without delay. scheduled to receive second dose of albumin this morning, lasix rescheduled to comply with special instruction to give lasix with albumin. time changed from 0300 to 0700. lung sounds remained clear this shift, no cough.
[2021-01-29 05:13] LABS: Creatine Phosphokinase 24 U/L (26-192)
[2021-01-29] MEDS: thyroid 60 mg Tablet 180 MG PO (06:10)
[2021-01-29] MEDS: FUROsemide 10 mg/mL SDV 4mL 40 MG IVP ×2 (06:46→14:40)
[2021-01-29] MEDS: ascorbic acid 500 mg Tablet PO (08:37)
[2021-01-29] MEDS: pyridoxine 50 mg Tablet 25 MG PO (08:37)
[2021-01-29] MEDS: zinc gluconate 50 mg Tablet PO (08:37)
[2021-01-29] MEDS: ferrous sulfate EC 325 mg Tablet PO (08:37)
[2021-01-29] MEDS: pantoprazole 40 mg SDV IVP (08:38)
[2021-01-29] MEDS: lactulose oral liq 20 gm/30 mL UDC 30 GM PO ×2 (08:38→14:40)
[2021-01-29] MEDS: midodrine 5 mg TABLET 10 MG PO ×2 (08:38→14:41)
[2021-01-29] MEDS: cholecalciferol (vitamin D3) 1,000 unit Tablet 1000 UNIT PO (08:38)
--- NOTE | 2021-01-29 11:14 | PC.SOCIAL ---
Pg 2 IMM Explained to pt Pg 2 IMM. No questions voiced. Provided pt a copy. Initialed, dated, & timed a copy & placed in chart.
[2021-01-29] MEDS: albuterol 8 gm MDI 2 PUFF INHALATION (11:42)
--- NOTE | 2021-01-29 11:45 | PM.TDS ---
Transfer Summary Providers Date of Admission: 01/26/21 21:12 Date of Discharge: 01/29/21 Attending Provider at Admission: Bharati Brown MD Attending Provider at Transfer: Brandon Fountain MD Primary Care Provider: Phil Cisneros MD Anticipated Date of Transfer: Anticipated date of transfer: 01/29/21 Receiving Facility & Provider: Receiving Provider: [] Receiving facility: [] Diagnoses at Discharge Discharge Diagnosis (1) Ascites: Status: Acute (2) Sepsis: Status: Acute (3) Anemia: Status: Acute Permanent problem details: not candidate of AC (4) DVT (deep venous thrombosis): Status: Acute Permanent problem details: b/l dvt november 13 (5) Cholangiocarcinoma: Status: Acute (6) Liver cirrhosis: Status: Acute (7) Valvular heart disease: Status: Acute Reason for Visit Reason for Visit: Septic/Renal Failure/Liver Failure/Sent by [facility] Course Hospital Course This is a 75-year-old female with a past medical history of stage IV cholangiocarcinoma, liver cirrhosis, portal hypertension, chronic thrombocytopenia, hepatic encephalopathy, chronic fluid overload and recurrent ascites, history of chronic kidney disease, history of diastolic CHF, history of bioprosthetic aortic valve replacement 2013, history of DVT status post IVC filter, now removal with the last few months, cannot tolerate anticoagulation due to transfusion dependent anemia, transfusion dependent anemia, maintaining hemoglobin greater than eight, who presents to [facility] due to fatigue, malaise, cough Patient was admitted to [facility] for sepsis secondary to bilateral lower lobe pneumonia, as there was no ICU beds, patient did not want to be transferred at that time, she was managed on general medical floors, she received midodrine for blood pressure support, broad-spectrum antibiotic therapy, oxygen therapy, received a paracentesis, over 7 L of fluid removed, and clinically monitored. Patient sepsis improved, she remained fairly normotensive, afebrile, on 2 to 3 L nasal cannula, symptomatically improving. She had a paracentesis to evaluate for spontaneous bacterial peritonitis, PMNs less than 250, culture so far unremarkable, this is unlikely a source of infection. In terms of her sepsis secondary to pneumonia, she is clinically improving, she is on vancomycin and Primaxin, on 2 to 3 L nasal cannula, ambulating without significant symptomatology, Covid 19 antigen and PCR negative. Clinically patient did not have any symptoms of a UTI, her urine culture did come back positive for Enterococcus faecalis, she is on vancomycin as above Complicating things, initially patient's 1 out of 2 blood cultures were positive for gram-positive cocci, initially showing coagulase-negative staph. The initial thought was that this was a contamination, repeat blood cultures were obtained, blood cultures came back positive today for staph epidermidis. And initial blood cultures identification was changed to staph epidermidis. I have redrawn blood cultures this morning, she has been on vancomycin since her hospital admission, remained afebrile, clinically improving. However she does have a history of a bioprosthetic aortic valve replacement in 2013, does have a murmur on exam, I have ordered a cardiac echocardiogram, based on further work-up she might require a transesophageal echocardiogram to evaluate for possible endocarditis. Patient had an THELMA during hospital admission, likely secondary to sepsis and hypotension, improved with midodrine, creatinine on transfer was 1.7 Patient has a history of transfusion dependent anemia, she was transfused 1 unit during her hospitalization, hemoglobin 8.8 on transfer She has hyponatremia likely secondary to liver cirrhosis, clinically monitoring Patient has anasarca and fluid overload secondary to liver cirrhosis and hypoalbuminemia and diastolic CHF. She has received Lasix with albumin support and midodrine support, which we are continuing, creatinine improving to 1.7, she is +2.5 L For recurrent ascites, she had a paracentesis, over 7 L removed Liver cirrhosis, albumin 1.8, creatinine 1.7 Hepatic encephalopathy on lactulose and rifaximin Patient was transferred from [facility] to [facility] as per family request, patient's family requested patient to be transferred as all her physicians are at [facility], and her liver specialist is at [facility]. Physical Exam Const: COMMON NORMALS: no acute distress and patient oriented x3 Chest: OTHER: Right-sided chest port in place Resp: COMMON NORMALS: normal respiratory effort, No retractions, No use of accessory muscles and clear to auscultation bilaterally AUSCULTATION: clear to auscultation bilaterally Cardio: COMMON NORMALS: regular rate, regular rhythm, S1 normal heart sound present and S2 normal heart sound present RATE: regular rate RHYTHM: regular rhythm HEART SOUNDS: S1 normal heart sound present and S2 normal heart sound present GI: COMMON NORMALS: Normal to inspection, nondistended, normoactive bowel sounds present and non-tender INSPECTION: Yes abdominal distension Extremity: NARRATIVE EXTREMITY EXAM: 2+ pitting edema Neuro: COMMON NORMALS: patient oriented x3 Psych: COMMON NORMALS: mental status grossly normal Urinary Catheter Management^: Brown: Cath Placed During This Visit: yes Reason for Continuing Indwelling Catheter: Acute Urinary Retention or Obstruction Urinary Catheter Date of Insertion: 01/26/21 Urinary Catheter Time of Insertion: 18:37 TS Data Data Completed and Pending: Completed Studies During Hospitalization Category Date Time Status CT abdomen pelvis wo con [id number] Urge nt Cat Scan 01/26/21 21:[address] chest wo con 7 [id number] Routine Cat Scan 01/28/21 10:55 Completed XR chest 1V beata ble [id number] Stat Exams 01/26/21 18:37 [place] bd w [id number] Routine Ultrasound 01/27/21 00:30 Completed US renal BI* [id number] Routine Ultrasound 01/27/21 09:07 Completed Pending at discharge Category Date Time Status Anaerobic Culture Routine Lab 01/27/21 10:03 Results Blood Culture Sta t Lab 01/26/21 19:40 Results Blood Culture Sta t Lab 01/29/21 10:23 Results Body Fluid Cultur e & GS Routine Lab 01/27/21 10:03 Results C Reactive Protei n AM LABS Lab 01/30/21 04:00 Ordered Complete Blood Co unt w/Auto AM LABS Lab 01/30/21 04:00 Ordered Comprehensive Met abolic Panel AM LA BS Lab 01/30/21 04:00 Ordered Creatine Phosphok inase AM LABS Lab 01/30/21 04:00 Ordered Lactate (Lactic A veronica level) AM LABS Lab 01/30/21 04:00 Ordered Magnesium AM LABS Lab 01/30/21 04:00 Ordered Mycobacteria, Cul ture w/Fluor Chacei ne Lab 01/27/21 10:03 Received NT Pro B Type Miladis riuretic Pept QAM Lab 01/30/21 06:00 Ordered Phosphorus AM LAB S Lab 01/30/21 04:00 Ordered Procalcitonin AM LABS Lab 01/30/21 04:00 Ordered Prothrombin Time INR AM LABS Lab 01/30/21 04:00 Ordered Sputum Culture an d Gram Stain [place] ne Lab 01/26/21 22:55 Uncollected Vancomycin Trough Timed Lab 01/29/21 18:00 Ordered Cytology [PTH] Ro utine Pth 01/27/21 09:02 Received CV. echo complete * [id number] Routine Ultrasound 01/28/21 14:38 Taken Labs from last 24 hours 01/29/21 01/29/21 01/29/21 04:20 04:20 04:20 WBC RBC Hgb Hct MCV MCH MCHC RDW Plt Count MPV Neut % (Auto) Lymph % (Auto) [place] % (Auto) Eos % (Auto) Baso % (Auto) Neut # (Auto) Lymph # (Auto) [place] # (Auto) Eos # (Auto) Baso # (Auto) Nucleated RBC % (a uto) Nucleated RBCs # PT INR Sodium 129 L Potassium 4.6 Chloride 97 L Carbon Dioxide 22 Anion Gap 14.6 BUN 69 H Creatinine 1.7 H GFR Calculation Not Reportable Glucose 138 H Calculated Osmolal ity 290 Lactate 1.9 Calcium 7.5 L Phosphorus 4.6 H Magnesium 2.2 Total Bilirubin 1.4 H AST 51 H ALT 26 Alkaline Phosphata se 209 H Creatine Kinase 24 L C-Reactive Protein 53.4 H NT-Pro-B Natriuret Pep 4838 H Total Protein 4.7 L Albumin 2.7 L Globulin 2.0 Procalcitonin 1.94 H Nasal/Oral COVID-1 9 PCR Blood Type Rho(D) Type Antibody Screen Crossmatch 01/29/21 01/29/21 01/28/21 04:20 04:20 14:49 WBC 19.0 H RBC 2.89 L Hgb 8.8 L 9.0 L Hct 26.9 L 27.8 L MCV 93.1 MCH 30.4 MCHC 32.7 RDW 18.0 H Plt Count 42 L MPV 11.6 H Neut % (Auto) 80.2 Lymph % (Auto) 7.4 [place] % (Auto) 10.1 Eos % (Auto) 1.2 Baso % (Auto) 0.4 Neut # (Auto) 15.23 H Lymph # (Auto) 1.4 [place] # (Auto) 1.9 H Eos # (Auto) 0.2 Baso # (Auto) 0.1 Nucleated RBC % (a uto) 0 Nucleated RBCs # 0.0 PT 17.50 H INR 1.40 H Sodium Potassium Chloride Carbon Dioxide Anion Gap BUN Creatinine GFR Calculation Glucose Calculated Osmolal ity Lactate Calcium Phosphorus Magnesium Total Bilirubin AST ALT Alkaline Phosphata se Creatine Kinase C-Reactive Protein NT-Pro-B Natriuret Pep Total Protein Albumin Globulin Procalcitonin Nasal/Oral COVID-1 9 PCR Blood Type Rho(D) Type Antibody Screen Crossmatch 01/28/21 01/27/21 11:19 11:33 WBC RBC Hgb Hct MCV MCH MCHC RDW Plt Count MPV Neut % (Auto) Lymph % (Auto) [place] % (Auto) Eos % (Auto) Baso % (Auto) Neut # (Auto) Lymph # (Auto) [place] # (Auto) Eos # (Auto) Baso # (Auto) Nucleated RBC % (a uto) Nucleated RBCs # PT INR Sodium Potassium Chloride Carbon Dioxide Anion Gap BUN Creatinine GFR Calculation Glucose Calculated Osmolal ity Lactate Calcium Phosphorus Magnesium Total Bilirubin AST ALT Alkaline Phosphata se Creatine Kinase C-Reactive Protein NT-Pro-B Natriuret Pep Total Protein Albumin Globulin Procalcitonin Nasal/Oral COVID-1 9 PCR Not detected Blood Type O Positive Rho(D) Type Positive / 4+ Antibody Screen Negative Crossmatch See Detail Vitals: Last Vital Signs Temp 97.5 F L 01/29/21 10:49 Pulse 96 01/29/21 10:49 Resp 17 01/29/21 10:49 BP 103/68 01/29/21 10:49 Pulse Ox 100 01/29/21 10:49 TS Medications Medications Home Medications ergocalciferol (vitamin D2) 50,000 unit PO Q7D 10/31/20 [History Confirmed 01/27/21] ondansetron 8 mg PO Q8H PRN 10/31/20 [History Confirmed 01/27/21] Xifaxan 550 mg PO BID 11/18/20 [History Confirmed 01/27/21] Sandwich Thyroid 180 mg PO DAILY 12/24/20 [History Confirmed 01/27/21] pantoprazole 40 mg PO BID #30 tab 12/31/20 [Rx Confirmed 01/27/21] pyridoxine (vitamin B6) 25 mg PO DAILY #30 tab 12/31/20 [Rx Confirmed 01/27/21] spironolactone 25 mg PO DAILY #30 tab 12/31/20 [Rx Confirmed 01/27/21] diclofenac sodium 2 - 4 g TOPICAL TID PRN 01/22/21 [History Confirmed 01/27/21] docusate sodium 100 mg PO BID 01/22/21 [History Confirmed 01/27/21] ferrous sulfate 325 mg PO BID 01/22/21 [History Confirmed 01/27/21] lactulose 30 ml PO Q6H 01/22/21 [History Confirmed 01/27/21] albuterol sulfate [ProAir HFA] 2 puff INHALATION Q4H PRN 01/27/21 [History Confirmed 01/27/21] furosemide See Rx Instructions .ROUTE .COMPLEX 01/27/21 [History Confirmed 01/27/21] oxycodone 10 - 20 mg PO Q4H PRN 01/27/21 [History Confirmed 01/27/21] phenyleph-shark [id number] [Preparation H] [address] PRN 01/27/21 [History Confirmed 01/27/21] potassium chloride 10 meq PO BID 01/27/21 [History Confirmed 01/27/21] Active Medications Acetaminophen (Acetaminophen 500 Mg Tablet) 500 mg PO Q8H PRN PRN Reason: fever Albuterol Sulfate (Albuterol 8 Gm Mdi) 2 puff INHALATION Q4H.RESPIRATORY PRN PRN Reason: SHORTNESS OF BREATH Last Admin: 01/29/21 11:42 Dose: 2 puff Documented by: Albuterol/Ipratropium (Ipratropium-Albuterol 3 Ml Neb) 3 ml INHALATION Q6H PRN PRN Reason: SHORTNESS OF BREATH Ascorbic Acid (Ascorbic Acid 500 Mg Tablet) 500 mg PO BID [facility] Last Admin: 01/29/21 08:37 Dose: 500 mg Documented by: Bumetanide (Bumetanide 1 Mg Tablet) 1 mg PO DAILY [facility] Ferrous Sulfate (Ferrous Sulfate Ec 325 Mg Tablet) 325 mg PO BID [facility] Last Admin: 01/29/21 08:37 Dose: 325 mg Documented by: Furosemide (Furosemide 10 Mg/Ml Sdv 4ml) 40 mg IVP Q12H GIRISH Vancomycin HCl 1,000 mg/ (Sodium Chloride) 250 mls @ 250 mls/hr IV Q24H [facility]; Protocol Last Infusion: 01/28/21 20:55 Dose: Infused Documented by: Imipenem/Cilastatin Sodium 250 (mg/ Sodium Chloride) 100 mls @ 200 mls/hr IV Q6H [facility]; Protocol Last Infusion: 01/29/21 06:12 Dose: Infused Documented by: Albumin Human (Albumin) 50 gm in 200 mls @ 60 mls/hr IV Q12H [facility] Lactulose (Lactulose Oral Liq 20 Gm/30 Ml Udc) 30 gm PO TID [facility] Last Admin: 01/29/21 08:38 Dose: 30 gm Documented by: Midodrine (Midodrine 5 Mg Tablet) 10 mg PO TID [facility] Last Admin: 01/29/21 08:38 Dose: 10 mg Documented by: Ondansetron HCl (Ondansetron 2 Mg/Ml Sdv 2 Ml) 4 mg IVP Q6H PRN PRN Reason: NAUSEA AND VOMITING Last Admin: 01/28/21 12:38 Dose: 4 mg Documented by: Oxycodone HCl (Oxycodone 5 Mg Ir Tab/Cap) 10 mg PO Q4H PRN PRN Reason: SEVERE PAIN Last Admin: 01/28/21 08:33 Dose: 10 mg Documented by: Pantoprazole Sodium (Pantoprazole 40 Mg Sdv) 40 mg IVP BID [facility] Last Admin: 01/29/21 08:38 Dose: 40 mg Documented by: Potassium Chloride (Potassium Chloride Er 10 Meq Tablet) 10 meq PO BEDTIME [facility] Last Admin: 01/28/21 21:20 Dose: 10 meq Documented by: Pyridoxine HCl (Pyridoxine 50 Mg Tablet) 25 mg PO DAILY [facility] Last Admin: 01/29/21 08:37 Dose: 25 mg Documented by: Rifaximin (Rifaximin 550 Mg Tablet) 550 mg PO BID@0700,1900 [facility]; Protocol Last Admin: 01/29/21 06:10 Dose: 550 mg Documented by: Fluticasone/Salmeterol (Fluticasone-Salmeterol 250-50 Diskus) 1 puff INHALATION BID.RESPIRATORY [facility] Last Admin: 01/29/21 11:42 Dose: Not Given Documented by: Thyroid (Thyroid 60 Mg Tablet) 180 mg PO DAILY@0700 [facility] Last Admin: 01/29/21 06:10 Dose: 180 mg Documented by: Vitamin D (Cholecalciferol (Vitamin D3) 1,000 Unit Tablet) 1,000 unit PO DAILY [facility] Last Admin: 01/29/21 08:38 Dose: 1,000 unit Documented by: Zinc Gluconate (Zinc Gluconate 50 Mg Tablet) 50 mg PO DAILY [facility] Last Admin: 01/29/21 08:37 Dose: 50 mg Documented by: Discharge Plan Discharge Patient Disposition: Home Condition: Stable Prescriptions: No Action ondansetron 8 mg tablet,disintegrating 8 mg PO Q8H PRN (Reason: Nausea) RF: 0 ergocalciferol (vitamin D2) 1,250 mcg (50,000 unit) capsule 50,000 unit PO Q7D RF: 0 Sandwich Thyroid 180 mg tablet 180 mg PO DAILY RF: 0 spironolactone 25 mg Tablet 25 mg PO DAILY Qty: 30 RF: 0 pantoprazole 40 mg tablet,delayed release (DR/EC) 40 mg PO BID Qty: 30 RF: 0 pyridoxine (vitamin B6) 25 mg tablet 25 mg PO DAILY Qty: 30 RF: 0 ferrous sulfate 325 mg (65 mg iron) tablet 325 mg PO BID RF: 0 docusate sodium 100 mg capsule 100 mg PO BID RF: 0 lactulose 10 gram/15 mL solution 30 ml PO Q6H RF: 0 diclofenac sodium 1 % gel 2 - 4 g topical TID PRN (Reason: Pain) RF: 0 Xifaxan 550 mg tablet 550 mg PO BID RF: 0 potassium chloride 10 mEq tablet extended release 10 meq PO BID RF: 0 furosemide 80 mg tablet See Rx Instructions .ROUTE .COMPLEX RF: 0 ProAir HFA 90 mcg/actuation Hfa Aerosol Inhaler 2 puff INHALATION Q4H PRN (Reason: Shortness Of Breath) RF: 0 Preparation H Cream [address] PRN RF: 0 oxycodone 10 mg tablet 10 - 20 mg PO Q4H PRN (Reason: Pain) RF: 0 Referrals: Phil Cisneros MD [Primary Care Provider] - Patient Instructions: Opioid Safety Transfer Attestations Time Spent in Transfer Care*: greater than 30 min Status at Transfer: Cognitive status at transfer: mildly impaired cognition, Behavioral status at transfer: cooperative, Quality Metrics Clinical Quality Measures: During this hospital stay, did patient experience: None Coding Level of Care Code 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
--- NOTE | 2021-01-29 13:13 | PC.NURSE ---
Transfer Note Patient transferred to [facility] from Med Surg via Ambulance. Handoff report called to Marsha TERRY at [phone]. Orders reviewed and will continue to monitor. Family and/or sales representative cash registers notified.
--- NOTE | 2021-01-29 13:15 | PC.NURSE ---
Report called to Marsha TERRY at [facility]. Patient going to room 5570 Bed 1. Phone number called for report [phone].
[2021-01-29 16:07] LABS: Hematocrit 22.9 % (37.0-47.0); Hemoglobin 7.6 g/dL (11.5-15.3)
--- NOTE | 2021-01-29 17:00 | PC.NURSE ---
Patient transferred via EMS transport. Drain emptied. Patient cleaned up and in clean dry linens.
== END 2021-01-29 17:17 | disposition short-term general hospital (02) | DRG 871 ==
LOC: ER 21:55 → MEDSURG 23:46
PROVIDERS: Family Medicine; Admitting Provider Internal Medicine; Emergency Provider Emergency Medicine; PCP Family Medicine; Visit Provider Family Medicine
DX: A41.9 Sepsis, unspecified organism (principal); J18.9 Pneumonia, unspecified organism; C22.1 Intrahepatic bile duct carcinoma; R18.8 Other ascites; E87.2 Acidosis; N39.0 Urinary tract infection, site not specified; N17.9 Acute kidney failure, unspecified; K74.60 Unspecified cirrhosis of liver; Z79.899 Other long term (current) drug therapy; Z86.718 Personal history of other venous thrombosis and embolism; Z85.42 Personal history of malignant neoplasm of other parts of uterus; Z85.850 Personal history of malignant neoplasm of thyroid; Z87.01 Personal history of pneumonia (recurrent); Z95.828 Presence of other vascular implants and grafts; Z95.3 Presence of xenogenic heart valve; E89.0 Postprocedural hypothyroidism; D64.9 Anemia, unspecified; B95.2 Enterococcus as the cause of diseases classified elsewhere; D69.59 Other secondary thrombocytopenia; I95.9 Hypotension, unspecified; N18.9 Chronic kidney disease, unspecified
CPT/HCPCS: 36415; 36430; 49083; 51702; 71045; 71250; 74176; 76770; 80048; 80053; 80500; 81003; 82042; 82140; 82150; 82436; 82465; 82550; 82570; 82945; 83605; 83615; 83690; 83735; 83880; 83986; 84075; 84100; 84133; 84145; 84157; 84300; 84315; 84478; 84560; 85007; 85014; 85018; 85025; 85610; 85999; 86140; 86403; 86850; 86900; 86920; 87015; 87040; 87070; 87075; 87077; 87086; 87116; 87186; 87205; 87206; 87426; 87635; 87641; 87801; 88112; 88305; 89050; 93005; 93306; 94640; 96365; 96367; 96375; 99215; 99285; C9113; J0692; J0743; J1940; J2270; J2405; J2543; J3370; J3535; J7030; J7050; P9016; P9041; P9047